=== PATIENT | female | born 1970 | race Caucasian/White ===

== ENCOUNTER 2017-11-23 18:18 | Emergency (ER) | payer OTHER, SELFPAY ==
[2017-11-23 18:19] VITALS: BP 161/96; PULSE 81; RESP 16; TEMP 36.2; O2SAT 98; BMI 32.3
--- NOTE | 2017-11-23 18:46 | EKG12_ITS ---
Test Reason : DIZZINESS Blood Pressure : / mmHG Vent. Rate : 077 BPM Atrial Rate : 077 BPM P-R Int : 150 ms QRS Dur : 080 ms QT Int : 376 ms P-R-T Axes : 029 014 068 degrees QTc Int : 425 ms Normal sinus rhythm Normal ECG Confirmed by AYLIN PEREZ, ANDER ([id number]), offline editor DANIEL FELDER ([id number]) on 11/25/2017 1:43:28 PM Referred By: KAYLA Confirmed By:ANDER VIERA MD
--- NOTE | 2017-11-23 18:47 | RAD_ITS ---
STUDY: X-RAY CHEST REASON FOR EXAM: Female, 47 years old. Dizziness. TECHNIQUE: PA and lateral views of the chest. COMPARISON: August 18, 2014 FINDINGS: The lungs are clear and expanded. There is no demonstrated pleural abnormality. Normal size heart. Normal mediastinum and [place]. Normal visualized pulmonary arteries. Normal visualized aortic arch and descending thoracic aorta. Normal visualized thoracic spine. Normal visualized ribs, clavicles, and shoulders. There is no demonstrated abnormality of the visualized soft tissue structures of the upper abdomen. RAD/Chest PA and Lateral IMPRESSION: No acute cardiopulmonary process. Electronically Signed: Jaclyn Mckeon MD at 20:44 EDT Tel , Service support ,
[2017-11-23 19:21] VITALS: PULSE 79; RESP 20; O2SAT 96
[2017-11-23] MEDS: 0.9% Normal Saline 1,000 ML 1000 ML IV (19:22)
[2017-11-23 19:41] LABS: Absolute Lymphocyte Count 1.49 X10^3/ul (0.83-4.51); Absolute Neutrophil Count 6.8 X10^3/uL (2.0-7.7); Basophil# 0.04 X10^3/uL; Basophil% 0.4 % (0-1); Eosinophil# 0.36 X10^3/uL; Eosinophils% 3.9 % (0-5); Hematocrit 42.8 % (37-47); Hemoglobin 14.1 g/dl (12.0-15.0); Lymphocyte # 1.49 X10^3/ul (4.0); Lymphocyte % 16.2 % (19-41); Mean Corp Hgb Conc 32.9 g/gl (32-36); Mean Corpuscular Hgb 29.9 pg (27.0-32.0); Mean Corpuscular Volume 90.7 fL (81-99); Mean Platelet Vol. 9.6 fl (6.2-12.0); Monocyte# 0.47 X10^3/uL; Monocyte% 5.1 % (0-10); Neutrophil # 6.81 X10^3/uL (2.7-7.7); Platelet Count 275 K/mm3 (150-450); RBC Distribution Width CV 12.9 % (11.6-14.6); RBC Distribution Width SD 42.6 fl (35.1-43.9); Red Blood Count 4.72 M/mm3 (4.2-5.4); White Blood Count 9.2 K/mm3 (4.4-11.0)
[2017-11-23 19:42] LABS: POSITIVE COUNT NO; POSITIVE DIFFERENTIAL NO; POSITIVE MORPHOLOGY NO
[2017-11-23 19:44] VITALS: BP 126/84; PULSE 77; RESP 17; O2SAT 97
[2017-11-23 19:50] LABS: Anion Gap 6 (5-15); BUN 13 mg/dL (7-18); BUN/Creat Ratio 16.1 RATIO (10-20); Chloride 107 mmol/L (98-107); Creatinine, Serum 0.81 mg/dL (0.55-1.02); EST Glomerular Filtration Rate 81 mL/min (>60); Est Glom Filt Rate - Afr Amer 98 mL/min (>60); Estimated Creatinine Clearance 81.24 ml/min; Glucose 101 mg/dL (74-106); Potassium 3.7 mmol/L (3.5-5.1); Sodium Level 142 mmol/L (136-145)
[2017-11-23 20:51] VITALS: BP 133/90; BP 135/89; BP 142/106; PULSE 70; PULSE 74; PULSE 80
--- NOTE | 2017-11-23 21:20 | ED.VISSUMM ---
- ER Visit Summary Date of Service: 11/23/17 Chief Complaint: Dizziness History of Present Illness: The patient is a 47 F presenting for evaluation secondary dizziness. Patient states that earlier today she drank some liquid that was extremely hot. States that she felt a burning sensation go all the way down from her throat into her chest into her abdomen. Patient states she was doing okay since then, but she was driving home from a track meet and felt lightheaded and almost sudden felt as if she was going to pass out. Patient states that she was still having some discomfort from drinking the hot liquid. She endorses some diaphoresis associated with this. Patient states that she does have a history of vasovagal syncope in the past. Patient states that she also recently finished bronchitis and a course of azithromycin. Patient does endorse that she had recent travel, but she flew to and from [place] was in seated for longer than 2 hours at a time. She denies any shortness of breath. Denies any fevers. She denies any history of DVT or PE. She denies any personal or family history of cardiac arrhythmias. Physical Examination: Vital signs are within normal limits, patient is afebrile. General: Patient is well-nourished well-developed and in no acute distress. Head: Normocephalic, atraumatic Eyes: Pupils equal round and reactive bilaterally, extra occular motion intact bialterally ENT: Moist mucous membranes Neck: Supple, no lymphadenopathy, no JVD, no meningismus CVS: Heart regular rate and rhythm, no murmurs, rubs or gallops, radial pulses 2+ bilaterally Resp: Respirations nondistressed, lung sounds clear bilaterally Abdomen: Soft, nontender, nondistended, no palpable masses, normal bowel sounds Back: Nontender Extremities: Nontender, atraumatic, active full range of motion, no peripheral edema Skin: warm, no rashes, no petechia Neuro: Alert and oriented x 4, CN 2-12 intact, no lateralizing neurological defecits Psyc: Normal affect Test Results: EKG shows sinus rate [address] segments, normal T waves, normal intervals. No evidence of acute changes from prior EKG. Chest x-ray per radiology shows no acute pathology. CBC chemistry and troponin found to be unremarkable. Emergency Department Course and Treatment: Patient presented with feelings of presyncope. Patient was evaluated using lab work including troponin, EKG, chest x-ray that were negative. Orthostatic vital signs are negative. Patient was given a GI cocktail and actually had improvement of her symptoms. Patient at this point is [place] syncope negative I do not believe that she requires admission, her symptoms potentially could be secondary to drinking the scalding hot liquid and a mild amount of esophageal pain causing a vagal reaction. At this point I believe that she is safe for discharge. Patient will follow up with her primary care physician. Disposition: Discharge Impression: 1. Presyncope This note was generated with [employer] dictation software. It may contain incorrect words, spelling, and punctuation that were not noted in review of the chart prior to signing ED Disposition - Plan for ED Patient: Disposition: Home or Assisted Living Chief Complaint: Dizziness Diagnosis: Pre-syncope Instructions: ED Near Syncope Unkn Referrals: [facility] Doctor,Out of [Primary Care Provider] - 1 Week
[2017-11-23 21:35] VITALS: BP 122/73; PULSE 76; RESP 15; O2SAT 96
[2017-11-23 21:36] VITALS: BP 122/73; PULSE 76; RESP 15; O2SAT 96
== END 2017-11-23 21:37 | disposition home or self-care (01) ==
PROVIDERS: Emergency Provider Emergency Medicine; Family Provider Family Medicine
DX: R55 Syncope and collapse (principal); F32.9 Major depressive disorder, single episode, unspecified; Z79.899 Other long term (current) drug therapy
CPT/HCPCS: 71046; 80048; 84484; 85025; 93005; 96360; 99285; J7030

== ENCOUNTER 2018-03-25 02:41 | Emergency (ER) | payer OTHER, SELFPAY ==
[2018-03-25 02:42] VITALS: BP 155/99; PULSE 97; RESP 19; TEMP 36.4; O2SAT 98; BMI 38.5
--- NOTE | 2018-03-25 03:12 | RAD_ITS ---
STUDY: X-RAY CHEST REASON FOR EXAM: Female, 47 years old. C/O DIZZINESS, TINGLING TECHNIQUE: Frontal and lateral views of the chest. COMPARISON: None. FINDINGS: The lungs are clear and expanded. There is no demonstrated pleural abnormality. Normal size heart. Normal mediastinum and [place]. Normal visualized pulmonary arteries. Normal visualized aortic arch and descending thoracic aorta. Normal visualized thoracic spine. Normal visualized ribs, clavicles, and shoulders. There is no demonstrated abnormality of the visualized soft tissue structures of the upper abdomen. RAD/Chest PA and Lateral IMPRESSION: Normal x-ray examination of the chest. Electronically Signed: Sivan Tovar MD at 4:19 EDT Tel , Service support ,
--- NOTE | 2018-03-25 03:12 | EKG12_ITS ---
Test Reason : SYNCOPE Blood Pressure : / mmHG Vent. Rate : 079 BPM Atrial Rate : 079 BPM P-R Int : 134 ms QRS Dur : 084 ms QT Int : 396 ms P-R-T Axes : 005 021 032 degrees QTc Int : 454 ms Normal sinus rhythm Poor R wave progression Confirmed by AALIYAH PEREZ, ABDULLAHI ([id number]), material expeditor DANIEL FELDER ([id number]) on 03/27/2018 9:55:03 AM Referred By: KYLE Confirmed By:ABDULLAHI FISCHER MD
--- NOTE | 2018-03-25 03:13 | ED.VISSUMM ---
- ER Visit Summary Date of Service: 03/25/18 Chief Complaint: Near syncope History of Present Illness: The patient is a 47 F patient awakened at 2 AM in bed felt like 'going to pass out. States became nauseated, tingling all over when she awakened. No chest pain or palpitations. Reported diagnosed history of cardiogenic syncope, has seen Dr. Man cardiology in the past who recently retired. Workup including stress test, echocardiogram, tilt test, Holter monitors. No current medications. Does admit to increased stress earlier, is an argument with significant others children's mother. No urinary symptoms. Chronic cough. Denies alcohol, tobacco, or illicit drug use. He still feels mild chest tightness. Her nausea has improved. History of uterine ablation. Physical Examination: General: Alert and oriented ?3, no acute distress HEENT: Normocephalic, atraumatic. Moist mucosa membranes Neck: supple, nontender. Cardiovascular: Regular rate and rhythm, no murmurs Respiratory: Normal breath sounds, symmetric, no distress Abdomen: Soft, nontender, nondistended Extremities: Nontender, no edema, pulses intact ?4 Neuro: no focal neurological deficits. Test Results: Hemoglobin 13.9. Potassium 3.9. Creatinine 0.94. Troponin negative for chest x-ray negative. EKG sinus rate of 79, no ST changes. T-wave flat in leads III. QTc 454. Emergency Department Course and Treatment: Patient nontoxic, workup for near syncope likely vasovagal. EKG normal. Labs are stable. Chest x-ray negative. Initially declined any medications. She given a liter fluids, Zofran was added, improvement of symptoms. Discussed likely vasovagal with her history. No syncopal episodes. Prescription of Zofran to use as needed follow with PCP, return if any worsening symptoms. Treatment Plan: [] Disposition: Discharge Impression: Vasovagal near syncope This note was generated with [employer] dictation software. It may contain incorrect words, spelling, and punctuation that were not noted in review of the chart prior to signing ED Disposition - Plan for ED Patient: Disposition: Home or Assisted Living Chief Complaint: General Illness Diagnosis: Vasovagal near syncope Instructions: ED Near Syncope Vasovagal Prescriptions: Ondansetron [Zofran Odt] 4 mg PO Q8H PRN PRN #10 tablet PRN Reason: Nausea Referrals: [facility] Doctor,Out of [NON-STAFF] - 2 Days
[2018-03-25] MEDS: 0.9% Normal Saline 1,000 ML 1000 ML IV (03:27)
[2018-03-25 03:32] LABS: Absolute Lymphocyte Count 1.91 X10^3/ul (0.83-4.51); Absolute Neutrophil Count 6.2 X10^3/uL (2.0-7.7); Basophil# 0.04 X10^3/uL; Basophil% 0.4 % (0-1); Eosinophil# 0.35 X10^3/uL; Eosinophils% 3.9 % (0-5); Hematocrit 42.6 % (37-47); Hemoglobin 13.9 g/dl (12.0-15.0); Lymphocyte # 1.91 X10^3/ul (4.0); Lymphocyte % 21.2 % (19-41); Mean Corp Hgb Conc 32.6 g/gl (32-36); Mean Corpuscular Hgb 29.6 pg (27.0-32.0); Mean Corpuscular Volume 90.6 fL (81-99); Mean Platelet Vol. 9.7 fl (6.2-12.0); Monocyte# 0.54 X10^3/uL; Neutrophil # 6.18 X10^3/uL (2.7-7.7); Neutrophil % 68.4 % (47-70); Platelet Count 238 K/mm3 (150-450); RBC Distribution Width CV 13.2 % (11.6-14.6); RBC Distribution Width SD 43.5 fl (35.1-43.9)
[2018-03-25 03:35] LABS: POSITIVE COUNT NO; POSITIVE DIFFERENTIAL NO; POSITIVE MORPHOLOGY NO
[2018-03-25 03:47] LABS: Anion Gap 8 (5-15); BUN 12 mg/dL (7-18); BUN/Creat Ratio 12.8 RATIO (10-20); Calcium,Total 9.6 mg/dL (8.5-10.1); Chloride 107 mmol/L (98-107); Creatinine, Serum 0.94 mg/dL (0.55-1.02); EST Glomerular Filtration Rate 68 mL/min (>60); Est Glom Filt Rate - Afr Amer 83 mL/min (>60); Estimated Creatinine Clearance 70.01 ml/min; Glucose 112 mg/dL (74-106); Potassium 3.9 mmol/L (3.5-5.1); Sodium Level 144 mmol/L (136-145)
[2018-03-25] MEDS: Ondansetron 4 MG/2 ML Vial IV (04:53)
[2018-03-25 05:34] VITALS: BP 132/85; PULSE 79; RESP 18; O2SAT 94
== END 2018-03-25 05:35 | disposition home or self-care (01) ==
PROVIDERS: Emergency Provider Emergency Medicine; Family Provider Family Medicine; PCP Family Medicine
DX: R55 Syncope and collapse (principal); Z79.899 Other long term (current) drug therapy
CPT/HCPCS: 71046; 80048; 84484; 85025; 93005; 96361; 96374; 99284; J7030; A4216; J2405

== ENCOUNTER 2018-03-25 19:19 | Emergency (ER) | payer OTHER, SELFPAY ==
[2018-03-25 19:20] VITALS: BP 166/101; PULSE 79; RESP 21; TEMP 36.6; O2SAT 96; BMI 39.0
--- NOTE | 2018-03-25 19:28 | RAD_ITS ---
STUDY: X-RAY CHEST REASON FOR EXAM: Female, 47 years old. Chest pain. TECHNIQUE: Single AP portable view of the chest. COMPARISON: March 25, 2018 (0331 hours) FINDINGS: Telemetry wires overlie the chest. There is a slightly decreased inspiratory effort when compared to prior study. There is no new infiltrate or mass. There is no demonstrated pleural abnormality. Normal size heart. Normal mediastinum and [place]. Normal visualized pulmonary arteries. Normal visualized aortic arch and descending thoracic aorta. No visualized osseous changes. There is no demonstrated abnormality of the visualized soft tissue structures of the upper abdomen. RAD/Chest 1 View (Portable) IMPRESSION: Mildly decreased inspiratory effort without interval change. Electronically Signed: Trenton Segura DO at 19:44 EDT Tel [phone], Service support ,
--- NOTE | 2018-03-25 19:28 | EKG12_ITS ---
Test Reason : CP Blood Pressure : / mmHG Vent. Rate : 080 BPM Atrial Rate : 080 BPM P-R Int : 132 ms QRS Dur : 084 ms QT Int : 396 ms P-R-T Axes : 001 012 035 degrees QTc Int : 456 ms Normal sinus rhythm Nonspecific ST abnormality Abnormal ECG Confirmed by AALIYAH PEREZ, ABDULLAHI ([id number]), electronic news gathering editor DANIEL FELDER ([id number]) on 03/27/2018 11:50:57 AM Referred By: CATRACHO Confirmed By:ABDULLAHI FISCHER MD
[2018-03-25 19:41] LABS: Absolute Lymphocyte Count 2.27 X10^3/ul (0.83-4.51); Absolute Neutrophil Count 4.9 X10^3/uL (2.0-7.7); Basophil# 0.04 X10^3/uL; Basophil% 0.5 % (0-1); Eosinophil# 0.49 X10^3/uL; Hematocrit 42.7 % (37-47); Hemoglobin 13.8 g/dl (12.0-15.0); Lymphocyte # 2.27 X10^3/ul (4.0); Lymphocyte % 27.6 % (19-41); Mean Corp Hgb Conc 32.3 g/gl (32-36); Mean Corpuscular Hgb 29.6 pg (27.0-32.0); Mean Corpuscular Volume 91.6 fL (81-99); Mean Platelet Vol. 9.9 fl (6.2-12.0); Monocyte# 0.57 X10^3/uL; Monocyte% 6.9 % (0-10); Neutrophil # 4.85 X10^3/uL (2.7-7.7); Neutrophil % 58.9 % (47-70); Platelet Count 242 K/mm3 (150-450); RBC Distribution Width CV 13.4 % (11.6-14.6); RBC Distribution Width SD 44.3 fl (35.1-43.9); Red Blood Count 4.66 M/mm3 (4.2-5.4); White Blood Count 8.2 K/mm3 (4.4-11.0)
[2018-03-25 19:51] LABS: POSITIVE COUNT NO; POSITIVE DIFFERENTIAL NO; POSITIVE MORPHOLOGY NO
[2018-03-25] MEDS: Aspirin 81 MG TAB.CHEW 324 MG PO (19:51)
[2018-03-25 20:05] LABS: Anion Gap 5 (5-15); BUN 12 mg/dL (7-18); BUN/Creat Ratio 11.7 RATIO (10-20); Calcium,Total 9.4 mg/dL (8.5-10.1); Chloride 107 mmol/L (98-107); Creatinine, Serum 1.03 mg/dL (0.55-1.02); EST Glomerular Filtration Rate 61 mL/min (>60); Est Glom Filt Rate - Afr Amer 74 mL/min (>60); Estimated Creatinine Clearance 63.89 ml/min; Glucose 105 mg/dL (74-106); Potassium 3.6 mmol/L (3.5-5.1); Sodium Level 143 mmol/L (136-145)
[2018-03-25 22:12] VITALS: BP 118/80; PULSE 74; RESP 14; O2SAT 98
--- NOTE | 2018-03-25 23:09 | ED.VISSUMM ---
- ER Visit Summary Date of Service: 03/25/18 Chief Complaint: Chest discomfort History of Present Illness: The patient is a 47 F past medical history of syncope and OCD. States she was seen and treated here earlier today had a negative workup and was discharged to home. States she has a numbness sensation in her left upper chest. She really does not cause pain. She denies any shortness of breath. She denies any diaphoresis or nausea. She has had no recent exertional dyspnea or exertional chest pain. She has no cardiac history. She does have chronic diarrhea. She denies any history of prior DVT or PE. She has had no recent surgery or mobilization. No calf pain or swelling. No hemoptysis. Physical Examination: Well-appearing middle-age female. Vital signs are stable afebrile. Pulse ox 96% on room air no hypoxia. HEENT exam unremarkable. Neck nontender. Lungs clear to auscultation bilaterally. Heart regular rhythm no murmur. Abdomen soft nontender. Normal bowel sounds no peritoneal signs. She is moving all 4 extremities. Calves are nontender without edema or cords. Neurologically she is awake and alert with no focal motor or sensory deficits. Back exam normal. Skin exam normal. Test Results: Chest x-ray normal cardiac silhouette and mediastinum. Read by the radiologist reviewed by me. EKG sinus rhythm rate 80 no acute signs of NV or ischemia. CBC normal. Chemistries normal. Troponin normal. Emergency Department Course and Treatment: Patient treated with p.o. aspirin. On repeat exam at 2259 she is doing well. Clinically and historically this does not sound like underlying cardiac disease. She has no significant risk factors. Her workup is negative and she had a previously negative workup earlier today. I am comfortable with her being discharged to home. Treatment Plan: Follow-up with her primary care physician. Disposition: Discharge Impression: Atypical chest discomfort of uncertain etiology This note was generated with [employer] dictation software. It may contain incorrect words, spelling, and punctuation that were not noted in review of the chart prior to signing ED Disposition - Plan for ED Patient: Chief Complaint: Chest Pain Referrals: Bren Carvajal PA-C [Primary Care Provider] -
--- NOTE | 2018-03-25 23:12 | ED.DCSUM_ITS ---
- ER Visit Summary Date of Service: 03/25/18 Chief Complaint: Chest discomfort History of Present Illness: The patient is a 47 F past medical history of syncope and OCD. States she was seen and treated here earlier today had a negative workup and was discharged to home. States she has a numbness sensation in her left upper chest. She really does not cause pain. She denies any shortness of breath. She denies any diaphoresis or nausea. She has had no recent exertional dyspnea or exertional chest pain. She has no cardiac history. She does have chronic diarrhea. She denies any history of prior DVT or PE. She has had no recent surgery or mobilization. No calf pain or swelling. No hemoptysis. Physical Examination: Well-appearing middle-age female. Vital signs are stable afebrile. Pulse ox 96% on room air no hypoxia. HEENT exam unremarkable. Neck nontender. Lungs clear to auscultation bilaterally. Heart regular rhythm no murmur. Abdomen soft nontender. Normal bowel sounds no peritoneal signs. She is moving all 4 extremities. Calves are nontender without edema or cords. Neurologically she is awake and alert with no focal motor or sensory deficits. Back exam normal. Skin exam normal. Test Results: Chest x-ray normal cardiac silhouette and mediastinum. Read by the radiologist reviewed by me. EKG sinus rhythm rate 80 no acute signs of [place] or ischemia. CBC normal. Chemistries normal. Troponin normal. Emergency Department Course and Treatment: Patient treated with p.o. aspirin. On repeat exam at 2259 she is doing well. Clinically and historically this does not sound like underlying cardiac disease. She has no significant risk factors. Her workup is negative and she had a previously negative workup earlier today. I am comfortable with her being discharged to home. Treatment Plan: Follow-up with her primary care physician. Disposition: Discharge Impression: Atypical chest discomfort of uncertain etiology This note was generated with [employer] dictation software. It may contain incorrect words, spelling, and punctuation that were not noted in review of the chart prior to signing ED Disposition - Plan for ED Patient: Chief Complaint: Chest Pain Referrals: Bren Carvajal PA-C [Primary Care Provider] -
--- NOTE | 2018-03-25 23:12 | ED.DEP ---
ED Disposition - Plan for ED Patient: Disposition: Home or Assisted Living Chief Complaint: Chest Pain Instructions: ED Chest Pain Atypical Unkn Cause Referrals: Bren Carvajal PA-C [Primary Care Provider] - 3-5 Days if not improving Additional Instructions: All your labs and x-ray were negative this evening. Follow-up your primary care physician.
[2018-03-25 23:21] VITALS: BP 156/108; PULSE 83; RESP 16; O2SAT 98
[2018-03-25] MEDS: LORazepam 1 MG Tablet PO (23:32)
== END 2018-03-25 23:34 | disposition home or self-care (01) ==
PROVIDERS: Emergency Provider Emergency Medicine; Family Provider Family Medicine; PCP Family Medicine
DX: R07.89 Other chest pain (principal); F42.9 Obsessive-compulsive disorder, unspecified; Z79.899 Other long term (current) drug therapy
CPT/HCPCS: 71045; 80048; 84484; 85025; 93005; 99285

== ENCOUNTER 2018-07-16 08:18 | Day surgery (SDC) | payer OTHER, SELFPAY ==
--- NOTE | 2018-07-16 | GASB_PTH ---
PATIENT: CORTEZ MOISE LOC: EN U#:[id number] AGE/SX: 47/F ROOM: RE07/16/[address]: Dr. Joo Gomez MD : 1970 BED: DIS: 07/16/2018 SPEC #: [id number] RECD: 07/16/18 14:53 STATUS: DARIEL RERaymon #: [id number] FREDI: 07/16/18 00:[address]: Joo Gomez DEPT: SURGICAL PATHOLOGY RECD BY: Jose Manuel Mcmillan ENTERED: 07/16/18 14:53 SP TYPE: Gastric Bx OTHR DR: Bren Carvajal PA-C Tissues: Gastric mucous membrane Procedures: Surgery Specimen Level IV HEADER OPER[place] [place] DIAGNOSIS: Dysphagia, cough TISSUE SUBMITTED: Antral biopsy for H. pylori and pathology MICROSCOPIC DIAGNOSIS Antral biopsy: Mild gastritis. See microscopic description and comment. SJ:natan 11/23/18 COMMENT The results of immunohistochemistry for Helicobacter pylori will be reported separately ([id number]). MICROSCOPIC DESCRIPTION Slides are reviewed. The specimen shows fragments of gastric mucosa with chronic inflammatory cell infiltrates in the lamina propria consisting of lymphocytes and plasma cells, consistent with mild chronic gastritis. GROSS DESCRIPTION Received in fixative is one container labeled with the patient's name and designated antral biopsy. The specimen consists of one irregular fragment of light treadwell soft tissue that measures 0.4 x 0.3 x 0.1 cm. The specimen is totally submitted in one cassette. / SJ:rg 07/16/18 TC:3 CPT: 60070
[2018-07-16 08:38] VITALS: BP 146/99; PULSE 82; RESP 16; TEMP 37.7; O2SAT 97; BMI 37.7
[2018-07-16 08:38] LABS: Internal QC Validated? YES +Cl - CLEAR BKGD; Pregnancy, Urine Negative Negative
[2018-07-16 09:21] VITALS: BP 108/63; BP 146/99; PULSE 75; RESP 14; TEMP 36.9; O2SAT 97
--- NOTE | 2018-07-16 09:23 | OP.ENDO_ITS ---
Patient Name: Isabel Miller Procedure Date: 07/16/2018 9:05 AM Date of : 1970 Age: 47 Procedure: Upper GI endoscopy Indications: Dysphagia, Gastro-esophageal reflux disease Providers: Joo Gomez MD Referring MD: Joo Gomez MD Medicines: See the Anesthesia note for documentation of the administered medications Patient Profile: This is a 47 year old female. Refer to note in patient chart for documentation of history and physical. Complications: No immediate complications. Procedure: Pre-Anesthesia Assessment: - Prior to the procedure, a History and Physical was performed, and patient medications and allergies were reviewed. The patient's tolerance of previous anesthesia was also reviewed. The risks and benefits of the procedure and the sedation options and risks were discussed with the patient. All questions were answered, and informed consent was obtained. Prior Anticoagulants: The patient has taken no previous anticoagulant or antiplatelet agents. ASA Grade Assessment: III - A patient with severe systemic disease. After reviewing the risks and benefits, the patient was deemed in satisfactory condition to undergo the procedure. After obtaining informed consent, the endoscope was passed under direct vision. Throughout the procedure, the patient's blood pressure, pulse, and oxygen saturations were monitored continuously. The gastroscope was introduced through the mouth, and advanced to the second part of duodenum. The upper GI endoscopy was accomplished without difficulty. The patient tolerated the procedure well. Scope In: 9:12:56 AM Scope Out: 9:16:27 AM Total Procedure Duration Time 0 hours 3 minutes 31 seconds Findings: The Z-line was regular and was found 35 cm from the incisors. The examined esophagus was normal. No biopsies or other specimens were collected for this exam. Localized mild inflammation characterized by erythema and linear erosions was found in the gastric antrum. Biopsies were taken with a cold forceps for Helicobacter pylori testing. The examined duodenum was normal. No biopsies or other specimens were collected for this exam. A small hiatal hernia was present. No biopsies or other specimens were collected for this exam. Impression: - Z-line regular, 35 cm from the incisors. - Normal esophagus. No specimens collected. - Gastritis. Biopsied. - Normal examined duodenum. No specimens collected. Recommendation: - Discharge patient to home. - Resume previous diet. - Continue present medications. - Await pathology results. - Repeat upper endoscopy at appointment to be scheduled for surveillance based on pathology results. - Return to my office in 1 week. - Perform routine esophageal manometry at appointment to be scheduled. - Perform ambulatory pH monitoring at appointment to be scheduled. Procedure Code(s): --- Professional --- 95929, Esophagogastroduodenoscopy, flexible, transoral; with biopsy, single or multiple Diagnosis Code(s): --- Professional --- K29.70, Gastritis, unspecified, without bleeding R13.10, Dysphagia, unspecified K21.9, Gastro-esophageal reflux disease without esophagitis CPT copyright 2017 [employer]. All rights reserved. The codes documented in this report are preliminary and upon career technical education teacher review may be revised to meet current compliance requirements. MD Joo Rodriguez MD 07/16/2018 9:22:29 AM This report has been signed electronically. Number of Addenda: 0 Note Initiated On: 07/16/2018 9:05 AM
[2018-07-16 09:25] VITALS: BP 146/99; BP 90/57; PULSE 78; RESP 14; O2SAT 97
[2018-07-16 09:30] VITALS: BP 146/99; BP 95/66; PULSE 72; RESP 14; O2SAT 95
--- NOTE | 2018-07-16 09:30 | IMM_PTH ---
PATIENT: CORTEZ MOISE LOC: EN U#:[id number] AGE/SX: 47/F ROOM: RE07/16/[address]: Dr. Joo Gomez MD : 1970 BED: DIS: 07/16/2018 SPEC #: [id number] RECD: 07/18/18 09:06 STATUS: DARIEL RERaymon #: [id number] FREDI: 07/16/18 09:[address]: Joo Gomez DEPT: IMMUNOHISTOCHEMISTRY RECD BY: Corrie Michael ENTERED: 07/18/18 09:09 SP TYPE: IMMUNO OTHR DR: Bren Carvajal PA-C Tissues: Stomach, NOS Procedures: H Pylori (initial) PHYSICIAN & INSTITUTION [place] [id number] SPECIMEN INFORMATION: Tissue Source: Antral biopsy Clinical Info: Dysphagia Specimen Number: [id number] CPT code: 72908 METHODOLOGY: Deparaffinized sections of prefer/formalin-fixed tissue or PAP/DQ stained slides are incubated with monoclonal/polyclonal antibodies/oligonucleotide probes. Localization is made via biotin free immunoperoxidase method. Appropriate controls are performed and reacted as expected. Results on target cell population are indicated in the following table: RESULTS: ANTIBODY / CLONE RESULT H Pylori (polyclonal) negative These tests were developed and their performance characteristics determined by [facility]. They may not have been cleared or approved by the U.S. Food and Drug Administration. The FDA has determined that such clearance or approval is not necessary. INTERPRETATION: Antral biopsy: Negative for Helicobacter pylori organisms. SJ:natan 07/18/18
[2018-07-16 09:35] VITALS: BP 118/77; BP 146/99; PULSE 70; RESP 14; TEMP 37.6; O2SAT 96
[2018-07-16 09:56] VITALS: BP 146/99
== END 2018-07-16 10:08 | disposition home or self-care (01) ==
LOC: EN 08:19 → AC 08:21
PROVIDERS: Anesthesiology; Family Provider Family Medicine; PCP Family Medicine; Referring Provider Surgery; Visit Provider Surgery
PROC: 0DJ08ZZ Inspection of Upper Intestinal Tract, Via Natural or Artificial Opening Endoscopic (ICD-10-PCS; CPT 43235; principal; 2018-07-16 09:25)
DX: K29.70 Gastritis, unspecified, without bleeding (principal); K21.9 Gastro-esophageal reflux disease without esophagitis; K44.9 Diaphragmatic hernia without obstruction or gangrene; R13.10 Dysphagia, unspecified; F41.9 Anxiety disorder, unspecified; F42.9 Obsessive-compulsive disorder, unspecified; Z79.899 Other long term (current) drug therapy
CPT/HCPCS: 43239; 81025; 88305; 88342; J7120

== ENCOUNTER 2018-08-07 08:27 | Day surgery (SDC) | payer OTHER, SELFPAY ==
[2018-08-07 09:17] VITALS: BP 140/99; PULSE 80; RESP 16; TEMP 36.7; O2SAT 99
== END 2018-08-07 09:17 | disposition home or self-care (01) ==
LOC: EN 08:28
PROVIDERS: Family Provider Family Medicine; PCP Family Medicine; Referring Provider Surgery; Visit Provider Surgery
PROC: F00ZJWZ Instrumental Swallowing and Oral Function Assessment using Swallowing Equipment (ICD-10-PCS; CPT 43235; principal; 2018-08-07 08:25)
DX: K21.9 Gastro-esophageal reflux disease without esophagitis (principal)
CPT/HCPCS: 78258

== ENCOUNTER 2018-08-13 05:55 | Day surgery (SDC) | payer OTHER, SELFPAY ==
[2018-08-13 06:33] VITALS: BP 122/92; PULSE 73; RESP 16; TEMP 37.1; O2SAT 98; BMI 37.3
[2018-08-13 07:20] VITALS: BP 117/80; BP 122/92; PULSE 80; RESP 16; TEMP 36.8; O2SAT 93
[2018-08-13 07:25] VITALS: BP 118/80; BP 122/92; PULSE 82; RESP 16; O2SAT 96
[2018-08-13 07:30] VITALS: BP 115/77; BP 122/92; PULSE 72; RESP 16; O2SAT 98
[2018-08-13 07:35] VITALS: BP 115/87; BP 122/92; PULSE 70; RESP 16; TEMP 36.9; O2SAT 97
--- NOTE | 2018-08-13 07:51 | OP.ENDO_ITS ---
Patient Name: Isabel Miller Procedure Date: 08/13/2018 6:33 AM Date of : 1970 Age: 47 Procedure: Upper GI endoscopy Indications: Gastro-esophageal reflux disease Providers: Joo Gomez MD Referring MD: Joo Gomez MD Medicines: See the Anesthesia note for documentation of the administered medications Patient Profile: This is a 47 year old female. Refer to note in patient chart for documentation of history and physical. Complications: No immediate complications. Procedure: Pre-Anesthesia Assessment: - Prior to the procedure, a History and Physical was performed, and patient medications and allergies were reviewed. The patient's tolerance of previous anesthesia was also reviewed. The risks and benefits of the procedure and the sedation options and risks were discussed with the patient. All questions were answered, and informed consent was obtained. Prior Anticoagulants: The patient has taken no previous anticoagulant or antiplatelet agents. ASA Grade Assessment: II - A patient with mild systemic disease. After reviewing the risks and benefits, the patient was deemed in satisfactory condition to undergo the procedure. After obtaining informed consent, the endoscope was passed under direct vision. Throughout the procedure, the patient's blood pressure, pulse, and oxygen saturations were monitored continuously. The gastroscope was introduced through the mouth, and advanced to the second part of duodenum. The upper GI endoscopy was accomplished without difficulty. The patient tolerated the procedure well. Scope In: 7:11:28 AM Scope Out: 7:16:05 AM Total Procedure Duration Time 0 hours 4 minutes 37 seconds Findings: The Z-line was regular and was found 35 cm from the incisors. The entire examined stomach was normal. No biopsies or other specimens were collected for this exam. The examined duodenum was normal. No biopsies or other specimens were collected for this exam. Impression: - Z-line regular, 35 cm from the incisors. - Normal stomach. No specimens collected. - Normal examined duodenum. No specimens collected. - The MOELLER pH capsule was positioned 25 cm from the incisors, which was 5 cm proximal to the GE junction. Recommendation: - Discharge patient to home. - Resume previous diet. - Repeat upper endoscopy at appointment to be scheduled for surveillance. - Return to my office in 1 week. - Hold present medications until after 48 hours. Procedure Code(s): --- Professional --- 40627, Esophagogastroduodenoscopy, flexible, transoral; diagnostic, including collection of specimen(s) by brushing or washing, when performed (separate procedure) Diagnosis Code(s): --- Professional --- K21.9, Gastro-esophageal reflux disease without esophagitis CPT copyright 2017 [employer]. All rights reserved. The codes documented in this report are preliminary and upon labor relations specialist review may be revised to meet current compliance requirements. MD Joo Rodriguez MD 08/13/2018 7:51:04 AM This report has been signed electronically. Number of Addenda: 0 Note Initiated On: 08/13/2018 6:33 AM
[2018-08-13 07:59] VITALS: BP 122/92
--- OUTSIDE RECORDS SUMMARY | 2018-11-14 07:33 | XMS RPT_ITS ---
:1970 Author Organization [place] Support Name Relationship Address Phone ZAHIDA MOISE Unavailable [address] + [place] [id number] [facility] Unavailable [address] + [place] [address] COURTNEY SEGOVIA Unavailable . + [place] [id number] ANNA MOISEDERICK Unavailable [address] + [place] [address] [facility] Unavailable [address] + [place] [address] COURTNEY SEGOVIA Unavailable Unavailable + [place] [address] SUMA, ZAHIDA Unavailable [address] + [place] [address] [facility] Unavailable [address] + [place] [address] COURTNEY SEGOVIA Unavailable . + [place] [address] TAMYCHRISTY, ZAHIDA Unavailable [address] + [place] [address] [facility] Unavailable [address] + [place] [address] COURTNEY SEGOVIA Unavailable Unavailable + [place] [address] SUMA, ZAHIDA Unavailable [address] + [place] [address] [facility] Unavailable [address] + [place] [address] COURTNEY SEGOVIA Unavailable /// + myla NAPIER [address] GEIB, ZAHIDA Unavailable [address] + [place] [address] [facility] Unavailable [address] + [place] [address] COURTNEY SEGOVIA Unavailable . + myla NAPIER [address] GEIB, ZAHIDA Unavailable [address] + [place] [address] [facility] Unavailable [address] + [place] [address] COURTNEY SEGOVIA Unavailable Unavailable + myla NAPIER [address] GEIB, ZAHIDA Unavailable [address] + [place] [address] [facility] Unavailable [address] + [place] [address] GEIB, ZAHIDA Unavailable [address] + [place] [address] GEIB, ZAHIDA Unavailable [address] + [place] [address] GEIB, ZAHIDA Unavailable [address] + myla N[place] [address] [facility] Unavailable [address] + [place] [address] GEIB, ZAHIDA Unavailable [address] + [place] [address] [facility] Unavailable [address] + [place] [address] GEIB, ZAHIDA Unavailable [address] + [place] [address] [facility] Unavailable [address] + [place] [address] Care Team Providers Name Role Phone DAYDAY TATE, MS. JUD Jamil Attending Unavailable NORFOLK, CRISPIN Primary Care Unavailable Calabretta, Raffi Attending Unavailable Badger, Joo Referring Unavailable Badger, Joo Attending Unavailable Badger, Joo Attending Unavailable Carmen, Crispin PA-C Referring Unavailable Jerel Fermin Attending Unavailable Carmen, Crispin PA-C Primary Care Unavailable Carmen, Crispin PA-C Primary Care Unavailable Kyle Jose Attending Unavailable Carmen, Crispin PA-C Primary Care Unavailable Guille Martinez Attending Unavailable Badger, Joo Attending Unavailable Carmen, Crispin PA-C Referring Unavailable Patricia, Joo Attending Unavailable Badger, Joo Referring Unavailable Carmen, Crispin PA-C Primary Care Unavailable Badger, Joo Attending Unavailable Carmen, Crispin PA-C Referring Unavailable Calabretta, Raffi Attending Unavailable Calabretta, Raffi Referring Unavailable Carmen, Crispin PA-C Primary Care Unavailable Badger, Joo Attending Unavailable Carmen, Crispin PA-C Primary Care Unavailable Carmen, Crispin PA-C Referring Unavailable PROBLEMS PROBLEMS DATE TYPE CONDITION / CODE ATTENDING STATUS SOURCE 08/14/2018 Unknown K21.9 - Joo Gomez Active [place] Gastro-esophageal [facility] reflux disease [facility] without Repository esophagitis / K21.9(ICD-10) PROCEDURES PROCEDURES No Procedure Records FoundRESULTS RESULTS SURGERY VISIT REPORT Observed: 08/18/2018 Status: F Source: [place] 3:16 PM [facility] REPOSITORY [facility] [address] [place] [address] [address] [place] [address] OFFICE VISIT Date of Service: 08/15/18 MR#: [id number] Acct: [id number] Name: ISABEL MOISE Rep #: [id number] : 1970 Provider: Joo Gomez MD Age/Sex: 47/F Location: [facility] Status: Signed Intake Intake Visit Reasons: F/U FROM EGD AND KEVIN BENAVIDEZO Chief Complaint: f/u MANOMETRY Digital Manager Required: No Is patient in pain?: No Allergies sulfamethoxazole [From Bactrim] Allergy (Verified 07/25/18 08:26) Hives trimethoprim [From Bactrim] Allergy (Verified 07/25/18 08:26) Hives Medications Lactobacillus acidophilus 1.5 mg (250 million cell) capsule 100 mmu cells PO DAILY 07/07/18 [History Confirmed 08/12/18] fluvoxamine ER 100 mg capsule,extended release 24 hr 50 mg PO DAILY cap 07/07/18 [History Confirmed 08/12/18] Ranitidine HCl [Zantac 75] 75 mg PO DAILY PRN 07/14/18 [History Confirmed 08/12/18] omeprazole 40 mg capsule,delayed release 40 mg PO BID cap 07/25/18 [History Confirmed 08/12/18] Is last menstrual period known: No Post menopausal: No Patient : No Subjective Details: Patient is status post both an EGD with 48-hour pH probe as well as esophageal manometry. Patient's pH monitoring showed a DeMeester score of 52.7. Patient also underwent esophageal manometry which showed 10 swallows analyzed no retained bolus LES pressure was normal with swallows and no abnormality was seen in the UDS. Her Z line was located at 35 cm from her incisors a biopsy of the stomach showed some mild gastritis and was H. pylori negative. Objective Details: Her abdomen is soft and not tender Assessment AND Plan Problems 1. Gastroesophageal reflux disease K21.9 Plan I believe this candidate would make a good surgical candidate for a laparoscopic Miky fundoplication. She is currently on her proton pump inhibitor is increased it and we are going to see if she makes any progress. I will probably see her back in 1 month's time and make a determination then if we are going to perform surgery or not. Coding Level of Care Code Off vis,est,level 2 Diagnoses Gastroesophageal reflux disease K21.9 08/18/18 9656 <Electronically signed by Joo Gomez MD> Date Joo Gomez MD Cosigner Signature: Date (if applicable) CC: RAVI Carvajal OPERATIVE REPORT - Observed: 08/13/2018 Status: F Source: [facility] ENDOSCOPY 7:51 AM [facility] RE[facility]ITORY [facility] Medical Records Department [address] [place] [address] Operative Report - Endoscopy MR#: [id number] Acct: [id number] Name: ISABEL MOISE Rep #: [id number] : 1970 47 From: Joo Gomez MD PCP: Crispin Carvajal PA-C Status: REG [facility] Patient Name: Isabel Moise Procedure Date: 08/13/2018 6:33 AM Date of : 1970 Age: 47 Procedure: Upper GI endoscopy Indications: Gastro-esophageal reflux disease Providers: Joo Gomez MD Referring MD: Joo Gomez MD Medicines: See the Anesthesia note for documentation of the administered medications Patient Profile: This is a 47 year old female. Refer to note in patient chart for documentation of history and physical. Complications: No immediate complications. Procedure: Pre-Anesthesia Assessment: - Prior to the procedure, a History and Physical was performed, and patient medications and allergies were reviewed. The patient's tolerance of previous anesthesia was also reviewed. The risks and benefits of the procedure and the sedation options and risks were discussed with the patient. All questions were answered, and informed consent was obtained. Prior Anticoagulants: The patient has taken no previous anticoagulant or antiplatelet agents. ASA Grade Assessment: II - A patient with mild systemic disease. After reviewing the risks and benefits, the patient was deemed in satisfactory condition to undergo the procedure. After obtaining informed consent, the endoscope was passed under direct vision. Throughout the procedure, the patient's blood pressure, pulse, and oxygen saturations were monitored continuously. The gastroscope was introduced through the mouth, and advanced to the second part of duodenum. The upper GI endoscopy was accomplished without difficulty. The patient tolerated the procedure well. Scope In: 7:11:28 AM Scope Out: 7:16:05 AM Total Procedure Duration Time 0 hours 4 minutes 37 seconds Findings: The Z-line was regular and was found 35 cm from the incisors. The entire examined stomach was normal. No biopsies or other specimens were collected for this exam. The examined duodenum was normal. No biopsies or other specimens were collected for this exam. Impression: - Z-line regular, 35 cm from the incisors. - Normal stomach. No specimens collected. - Normal examined duodenum. No specimens collected. - The MOELLER pH capsule was positioned 25 cm from the incisors, which was 5 cm proximal to the GE junction. Recommendation: - Discharge patient to home. - Resume previous diet. - Repeat upper endoscopy at appointment to be scheduled for surveillance. - Return to my office in 1 week. - Hold present medications until after 48 hours. Procedure Code(s): --- Professional --- 52384, Esophagogastroduodenoscopy, flexible, transoral; diagnostic, including collection of specimen(s) by brushing or washing, when performed (separate procedure) Diagnosis Code(s): --- Professional --- K21.9, Gastro-esophageal reflux disease without esophagitis CPT copyright 2017 [employer]. All rights reserved. The codes documented in this report are preliminary and upon projection printer review may be revised to meet current compliance requirements. MD Joo Rodriguez MD 08/13/2018 7:51:04 AM This report has been signed electronically. Number of Addenda: 0 Note Initiated On: 08/13/2018 6:33 AM 08/13/18 0751 Date Joo Gomez MD Cosigner Signature: Date (if indicated) CC: RAVI Carvajal; Joo Gomez MD Date Dictated: 08/13/18 0633 Date Transcribed: Frame Cleaner: AYDE Signed SURGERY VISIT REPORT Observed: 07/25/2018 Status: F Source: [place] 9:12 AM [facility] [address] [place] [address]. [address] [place], [place] [address] OFFICE VISIT Date of Service: 07/25/18 MR#: [id number] Acct: [id number] Name: ISABEL MOISE Rep #: [id number] : 1970 Provider: Joo Gomez MD Age/Sex: 47/F Location: [facility] Status: Signed Intake Intake Visit Reasons: Post Op EGD 07/16 Digital Manager Required: No Is patient in pain?: No Allergies sulfamethoxazole [From Bactrim] Allergy (Verified 07/25/18 08:26) Hives trimethoprim [From Bactrim] Allergy (Verified 07/25/18 08:26) Hives Medications Lactobacillus acidophilus 1.5 mg (250 million cell) capsule 100 mmu cells PO DAILY 07/07/18 [History Confirmed 07/25/18] fluvoxamine ER 100 mg capsule,extended release 24 hr 100 mg PO DAILY cap 07/07/18 [History Confirmed 07/25/18] Ranitidine HCl [Zantac 75] 75 mg PO DAILY PRN 07/14/18 [History Confirmed 07/25/18] omeprazole 40 mg capsule,delayed release 40 mg PO BID cap 07/25/18 [History Confirmed 07/25/18] Is last menstrual period known: No Post menopausal: Yes Patient : No Subjective Details: Patient is status post a esophagogastroduodenoscopy at [facility] on 07/16/2018 she was noted to have a Z line at about 35 cm from her incisors there was some mild inflammation with linear erosions in the gastric antrum. Biopsy for H. pylori was negative. She is scheduled to undergo esophageal manometry on 07 August. She however is stating that her reflux is significantly worse progressing despite being on 40 mg of omeprazole a day. I reviewed all the pictures with her showed her that her esophageal mucosa looked normal and there was no signs of erosions. Objective Details: Her lungs are clear to auscultation. Her heart is regular rate and rhythm. Neck is supple no JVD no lymphadenopathy no carotid bruits. Abdomen is soft. Assessment AND Plan Problems 1. Gastroesophageal reflux disease K21.9 Plan I am going to double her proton pump inhibitor to 40 g of omeprazole 2 times a day. I have also encouraged her to take Pepto-Bismol as needed. She is already trying to avoid things such as peppermint. We are going to get her scheduled as quickly as we can to get both the esophageal manometry as well as the 48-hour pH probe completed in a timely fashion so that we can evaluate to decide whether or not she has an esophageal motility problem or if this is truly a reflux problem. Coding Level of Care Code Off vis,est,level 2 Diagnoses Gastroesophageal reflux disease K21.9 07/25/18 0912 <Electronically signed by Joo Gomez MD> Date Joo Gomez MD Cosigner Signature: Date (if applicable) CC: RAVI Carvajal IMMUNOHISTOCHEMISTRY Observed: 07/16/2018 Status: F Source: CROSBY 9:30 [facility] REPOSITORY Patient: ISABEL MOISE : 1970 (47/F) Acct Num: [id number] Phys: Joo Gomez MD Unit Num: [id number] Loc: EN Specimen: [id number] Received: 07/18/18905 Spec Type: IMMUNO TISSUES 1 TISSUES: Stomach, NOS SPECIMEN INFORMATION: Tissue Source: Antral biopsy Clinical Info: Dysphagia Specimen Number: [id number] CPT code: 79631 METHODOLOGY: Deparaffinized sections of prefer/formalin-fixed tissue or PAP/DQ stained slides are incubated with monoclonal/polyclonal antibodies/oligonucleotide probes. Localization is made via biotin free immunoperoxidase method. Appropriate controls are performed and reacted as expected. Results on target cell population are indicated in the following table: RESULTS: ANTIBODY / CLONE RESULT H Pylori (polyclonal) negative These tests were developed and their performance characteristics determined by [facility]. They may not have been cleared or approved by the U.S. Food and Drug Administration. The FDA has determined that such clearance or approval is not necessary. INTERPRETATION: Antral biopsy: Negative for Helicobacter pylori organisms. SJ:natan 07/18/18 PHYSICIAN AND INSTITUTION [address] [address] Signed Ravi Coreas 07/18/18 <signature on file> Performed By: #### PIMM #### [facility] [address] [place], [address] OPERATIVE REPORT - Observed: 07/16/2018 Status: F Source: [place] ENDOSCOPY 9:23 AM [facility] REPOSITORY [facility] Medical Records Department [address] [place] [address] Operative Report - Endoscopy MR#: [id number] Acct: [id number] Name: ISABEL MOISE Rep #: [id number] : 1970 47 From: Joo Gomez MD PCP: Crispin Carvajal PA-C Status: REG [facility] Patient Name: Isabel Moise Procedure Date: 07/16/2018 9:05 AM Date of : 1970 Age: 47 Procedure: Upper GI endoscopy Indications: Dysphagia, Gastro-esophageal reflux disease Providers: Joo Gomez MD Referring MD: Joo Gomez MD Medicines: See the Anesthesia note for documentation of the administered medications Patient Profile: This is a 47 year old female. Refer to note in patient chart for documentation of history and physical. Complications: No immediate complications. Procedure: Pre-Anesthesia Assessment: - Prior to the procedure, a History and Physical was performed, and patient medications and allergies were reviewed. The patient's tolerance of previous anesthesia was also reviewed. The risks and benefits of the procedure and the sedation options and risks were discussed with the patient. All questions were answered, and informed consent was obtained. Prior Anticoagulants: The patient has taken no previous anticoagulant or antiplatelet agents. ASA Grade Assessment: III - A patient with severe systemic disease. After reviewing the risks and benefits, the patient was deemed in satisfactory condition to undergo the procedure. After obtaining informed consent, the endoscope was passed under direct vision. Throughout the procedure, the patient's blood pressure, pulse, and oxygen saturations were monitored continuously. The gastroscope was introduced through the mouth, and advanced to the second part of duodenum. The upper GI endoscopy was accomplished without difficulty. The patient tolerated the procedure well. Scope In: 9:12:56 AM Scope Out: 9:16:27 AM Total Procedure Duration Time 0 hours 3 minutes 31 seconds Findings: The Z-line was regular and was found 35 cm from the incisors. The examined esophagus was normal. No biopsies or other specimens were collected for this exam. Localized mild inflammation characterized by erythema and linear erosions was found in the gastric antrum. Biopsies were taken with a cold forceps for Helicobacter pylori testing. The examined duodenum was normal. No biopsies or other specimens were collected for this exam. A small hiatal hernia was present. No biopsies or other specimens were collected for this exam. Impression: - Z-line regular, 35 cm from the incisors. - Normal esophagus. No specimens collected. - Gastritis. Biopsied. - Normal examined duodenum. No specimens collected. Recommendation: - Discharge patient to home. - Resume previous diet. - Continue present medications. - Await pathology results. - Repeat upper endoscopy at appointment to be scheduled for surveillance based on pathology results. - Return to my office in 1 week. - Perform routine esophageal manometry at appointment to be scheduled. - Perform ambulatory pH monitoring at appointment to be scheduled. Procedure Code(s): --- Professional --- 09724, Esophagogastroduodenoscopy, flexible, transoral; with biopsy, single or multiple Diagnosis Code(s): --- Professional --- K29.70, Gastritis, unspecified, without bleeding R13.10, Dysphagia, unspecified K21.9, Gastro-esophageal reflux disease without esophagitis CPT copyright 2017 [employer]. All rights reserved. The codes documented in this report are preliminary and upon projection printer review may be revised to meet current compliance requirements. MD Joo Rodriguez MD 07/16/2018 9:22:29 AM This report has been signed electronically. Number of Addenda: 0 Note Initiated On: 07/16/2018 9:05 AM 07/16/18921 Date Joo Gomez MD Cosigner Signature: Date (if indicated) CC: RAVI Carvajal; Joo Gomez MD Date Dictated: 07/16/18904 Date Transcribed: Frame Cleaner: AYDE Signed ,URINE Collected: 07/16/2018 Status: F Source: RANJITH 8:29 AM [facility] REPOSITORY TYPE CODE TESTS RESULT OUT OF REFERENCE UNITS RANGE LAB L400.8000 Negative Normal HCGUQUAL Negative Result Comment: Very dilute urine specimens, as indicated by a low specific gravity, may not contain access representative levels of hCG. If is still suspected, a first morning urine specimen should be collected 48 hours later and tested. Performed By: #### [id number] #### [facility] [address] [place], [address] GASTRIC BIOPSY Observed: 07/16/2018 Status: F Source: RANJITH 12:00 AM [facility] REPOSITORY Patient: ISABEL MOISE : 1970 (47/F) Acct Num: [id number] Phys: Patricia PEREZ,Joo Unit Num: [id number] Loc: EN Specimen: [id number] Received: 07/16/18 1453 Spec Type: Gastric Bx TISSUES 1 TISSUES: Gastric mucous membrane COMMENT The results of immunohistochemistry for Helicobacter pylori will be reported separately ([id number]). GROSS DESCRIPTION Received in fixative is one container labeled with the patient's name and designated antral biopsy. The specimen consists of one irregular fragment of light treadwell soft tissue that measures 0.4 x 0.3 x 0.1 cm. The specimen is totally submitted in one cassette. / SINGH:natan 07/16/18 TC:3 CPT: 35099 HEADER OPERATION: EGD ([facility]) PRE-OP DIAGNOSIS: Dysphagia, cough TISSUE SUBMITTED: Antral biopsy for H. pylori and pathology MICROSCOPIC DESCRIPTION Slides are reviewed. The specimen shows fragments of gastric mucosa with chronic inflammatory cell infiltrates in the lamina propria consisting of lymphocytes and plasma cells, consistent with mild chronic gastritis. MICROSCOPIC DIAGNOSIS Antral biopsy: Mild gastritis. See microscopic description and comment. SINGH:natan 07/18/18 Signed Ravi Coreas 07/18/18 <signature on file> Performed By: #### PGASB #### [facility] [address] [place], [address] SURGERY VISIT REPORT Observed: 07/10/2018 Status: F Source: RANJITH 11:54 AM [facility] REPOSITORY [facility] [address] [place] [address] OFFICE VISIT Date of Service: 07/07/18 MR#: [id number] Acct: [id number] Name: ISABEL MOISE Rep #: [id number] : 1970 Provider: Joo Gomez MD Age/Sex: 47/F Location: [facility] Status: Signed Intake Vital Signs07/07/18 Height 5 ft 6 in 07/07/18 Weight: 239 lb Intake Visit Reasons: Gastroesophageal reflux disease (GERD) Digital Manager Required: No Is patient in pain?: No Allergies sulfamethoxazole [From Bactrim] Allergy (Verified 07/07/18 13:14) Hives trimethoprim [From Bactrim] Allergy (Verified 07/07/18 13:14) Hives Medications Lactobacillus acidophilus 1.5 mg (250 million cell) capsule 100 mmu cells PO DAILY 07/07/18 [History Confirmed 07/07/18] alprazolam 0.25 mg tablet 0.25 mg PO BID-TID PRN 07/07/18 [History Confirmed 07/07/18] fluvoxamine ER 100 mg capsule,extended release 24 hr 100 mg PO DAILY cap 07/07/18 [History Confirmed 07/07/18] omeprazole 40 mg capsule,delayed release 40 mg PO DAILY 07/07/18 [History Confirmed 07/07/18] [facility] Medical History Chest pain (Acute) Elevated lipase (Acute) Anxiety attack (Acute) Cough (Acute) GERD (gastroesophageal reflux disease) (Acute) Left arm numbness (Acute) OCD (obsessive compulsive disorder) (Acute) Palpitations (Acute) Paresthesia (Acute) Syncope (Acute) Surgical History History of (Acute) History of laparoscopic cholecystectomy (Acute) History of tonsillectomy (Acute) history uterine ablation (Acute) Family History Grandfather Heart disease Social History Smoking Status: Never smoker alcohol intake: never substance use type: does not use HPI HPI HPI: ISABEL MOISE, is a 47 F who presents to the office today for evaluation for GERD. Over the last several years the patient has been complaining of some dysphasia and coughing after eating. The symptoms have gotten progressively worse and aggravated over the last 2 months. She tastes acid in her mouth. She regurgitates food at times. And she has water brash symptoms in the morning when she wakes up. She has been on a proton pump inhibitor for the last 3 weeks and has not noticed any changes. Patient has had her gallbladder removed laparoscopically by Dr. Zheng in the past ROS General General: Yes fatigue; no weight change, appetite, colon cancer, breast cancer or weakness HEENT HEENT: Yes difficulty swallowing; no eye injury, eye surgery, swollen glands or hoarseness Endo Endocrine: No thyroid disease, diabetes mellitus, thyroid cancer, Hair loss, heat intolerance or cold intolerance Skin Skin: No rash or changing moles Breast Breast: No left breast lump, right breast lump, nipple discharge, breast pain, abnormal mammogram, abnormal US or breast enlargement Musc Musculoskeletal: No back problems, arthritis, rheumatoid arthritis, gout or joint pain Cardio Cardiovascular: No murmur, pacemaker, heart disease, atrial fibrillation, high blood pressure, heart attack, heart stent, palpitations, shortness of breat with exertion or chest pain Psych Psychiatric: No depression, anxiety or hearing voices Resp Respiratory: No shortness of breath, No sleep apnea, Yes cough, No COPD, No asthma, No emphysema, No wheezing Gastro Gastrointestinal: Yes abdominal pain, No nausea or vomiting, No diarrhea, No constipation, No blood in stool, Yes acid reflux, No hemorrhoids, Yes ulcers, No gallbladder problem, No black,tarry stools Rory Hematologic: No blood thinners, No blood disorders, No bleeding, No anemia, No blood clots Neuro Neurologic: No system reviewed and no additional complaints, except as docu, No as per HPI, No abnormal walking, No abnormal hearing, No abnormal movements, No abnormal speech, No behavioral changes, No burning sensations, No confusion, No seizure-like activity, No unsteadiness, No dizziness, No localized weakness, No frequent falls, No headache(s), No lack of coordination, No loss of vision, No memory loss, No numbness, No other visual disturbances, No radiating pain, No restless legs, No sensory deficit, No fainting, No tingling, No tremor(s), No weakness, No other Exam Const General: well developed, no acute distress, well hydrated Orientation: oriented to person, oriented to place, oriented to time [facility] Head: normocephalic, atraumatic Ears: external ears normal Mouth: moist mucous membranes Eyes Sclera: sclerae normal Pupils: normal by confrontation Neck Neck: no lymphadenopathy noted Neck mass: No Thyroid: symmetrical, thyroid normal Chest Chest palpation AND inspection: normal inspection of the chest Breast Palpation: No nipple discharge Resp Effort AND Inspection: normal respiratory effort Auscultation: clear to auscultation bilaterally Percussion: percussion normal Cardio Rate: regular rate Rhythm: regular rhythm Heart Sounds: no murmurs GI Palpation: soft, no masses, no hepatosplenomegaly, nontender Rectal Exam: other Other: Rectal exam deferred. Extrem General: no clubbing, cyanosis or edema, normal to inspection Assessment AND Plan 1. Gastroesophageal reflux disease, esophagitis presence not specified K21.9 Plan I have discussed the above with the patient. I have offered the patient esophagogastroduodenoscopy for evaluation. I have explained the risks/benefits of the procedure and described the procedure. I have discussed the risks with the patient, including but not limited to: infection, bleeding, perforation of the GI tract requiring emergency surgery, inability to complete the procedure, injury to any internal organs, complications of anesthesia, etc. - the patient understands and agrees to proceed. I have answered all the patient's questions to the patient's satisfaction and the patient has no further questions. The patient has been given instructions for the colon cleansing preparation. Orders Orders: Coding Level of Care Code Off vis,new,level 3 Diagnoses Gastroesophageal reflux disease, esophagitis presence not specified K21.9 Esophagitis presence: esophagitis presence not specified 07/10/18 1154 <Electronically signed by Joo Gomez MD> Date Joo Gomez MD Cosigner Signature: Date (if applicable) CC: RAVI Luciomee Carvajal NM MYOCARDIAL SPECT Observed: 04/16/2018 Status: F Source: [place] STRESS/REST 9:00 AM [facility] REPOSITORY ORIGINAL NM MYOCARDIAL SPECT STRESS/REST CLINICAL STATEMENT: CHEST PAIN, NEAR SYNCOPE, PALPITATIONS TECHNIQUE: Adenosine dose:60 mg Radiopharmaceutical (stress): Tc-99m Sestamibi Dose:19.4 mCi Radiopharmaceutical (rest): Tc-99m Sestamibi Dose:6.7 mCi SPECT acquisition and processing Reconstruction and reorientation of SPECT images into short axis, vertical and horizontal long axis planes Quantitative LVEF assessment COMPARISON:None REPORT:Image quality is good. Both stress and rest images demonstrate normal tracer uptake. On nonattenuation corrected images, there was decreased activity at the apex compatible with breast attenuatio n artifact. No evidence for stress-induced ventricular dilatation. Rotating planar images demonstrate no significant patient motion artifact. Gated images demonstrate normal LEFT ventricular size and systolic function. End-diastolic volume is 75 mL. LEFT ventricular ejection fraction is 67%. There is normal wall motion and wall thickening. IMPRESSION: 1. No evidence for stress-induced myocardial ischemia. 2. No evidence for myocardial infarction. There is evidence for breast attenuation artifact. 3. LEFT ventricle is normal in size with normal systolic function and ejection fraction of 67%. 4. No previous study is available for comparison. Interpreted By: Oscar Rodriguez MD Preliminary Report By: Oscar Rodriguez MD Electronically Signed By: Oscar Rodriguez MD Dictated Date: 04/16/2018 11:06:58 AM Prelim Date: 04/16/2018 11:06:58 AM Sign Date: 04/16/2018 11:37:25 AM 12 LEAD ELECTROCARDIOGRAM Observed: 03/27/2018 Status: F Source: RANJITH 11:51 AM [facility] Cardiovascular Services [address] [place] [address] 12 Lead EKG 03/25/18 1919 MR#: [id number] Acct: [id number] Name: ISABEL MOISE Rep #: [id number] : 1970 47 From: Mauri Fischer MD Attending Dr: Status: DEP ER Ordering Dr: Guille Martinez MD Date: 03/25/18 Location: ED Sex: F C Admitted: Test Reason : CP Blood Pressure : / mmHG Vent. Rate : 080 BPM Atrial Rate : 080 BPM P-R Int : 132 ms QRS Dur : 084 ms QT Int : 396 ms P-R-T Axes : 001 012 035 degrees QTc Int : 456 ms Normal sinus rhythm Nonspecific ST abnormality Abnormal ECG Confirmed by MAURI FISCHER MD ([id number]), web content editor DANIEL FELDER ([id number]) on 03/27/2018 11:50:57 AM Referred By: CATRACHO Confirmed By:MAURI FISCHER MD 03/27/18 115 Date Mauri Fischer MD CC: RAVI Carvajal; Guille Martinez MD Signed 12 LEAD ELECTROCARDIOGRAM Observed: 03/27/2018 Status: F Source: CROSBY 9:55 AM [facility] Cardiovascular Services [address] [place] [id number] 12 Lead EKG 03/25/18 0321 MR#: [id number] Acct: [id number] Name: ISABEL MOISE Rep #: [id number] : 1970 47 From: Mauri Fischer MD Attending Dr: Status: DEP ER Ordering Dr: Jose Serrano DO Date: 03/25/18 Location: ED Sex: F C Admitted: Test Reason : SYNCOPE Blood Pressure : / mmHG Vent. Rate : 079 BPM Atrial Rate : 079 BPM P-R Int : 134 ms QRS Dur : 084 ms QT Int : 396 ms P-R-T Axes : 005 021 032 degrees QTc Int : 454 ms Normal sinus rhythm Poor R wave progression Confirmed by MAURI FISCHER MD ([id number]), web content editor DANIEL FELDER ([id number]) on 03/27/2018 9:55:03 AM Referred By: KYLE Confirmed By:MAURI FISCHER MD 03/27/18 0943 Date Mauri Fischer MD CC: RAVI Carvajal; Jose Serrano Signed EMERGENCY DEPARTMENT Observed: 03/26/2018 Status: F Source: CROSBY SUMMARY 12:41 AM [facility] Medical Records Department [address] [place] [address] Emergency Department Summary 03/25/18 2309 MR#: [id number] Acct: [id number] Name: ISABEL MOISE Rep #: [id number] : 1970 47 From: Guille Martinez MD PCP: Crispin Carvajal PA-C Status: DEP ER - ER Visit Summary Date of Service: 03/25/18 Chief Complaint: Chest discomfort History of Present Illness: The patient is a 47 F past medical history of syncope and OCD. States she was seen and treated here earlier today had a negative workup and was discharged to home. States she has a numbness sensation in her left upper chest. She really does not cause pain. She denies any shortness of breath. She denies any diaphoresis or nausea. She has had no recent exertional dyspnea or exertional chest pain. She has no cardiac history. She does have chronic diarrhea. She denies any history of prior DVT or PE. She has had no recent surgery or mobilization. No calf pain or swelling. No hemoptysis. Physical Examination: Well-appearing middle-age female. Vital signs are stable afebrile. Pulse ox 96% on room air no hypoxia. HEENT exam unremarkable. Neck nontender. Lungs clear to auscultation bilaterally. Heart regular rhythm no murmur. Abdomen soft nontender. Normal bowel sounds no peritoneal signs. She is moving all 4 extremities. Calves are nontender without edema or cords. Neurologically she is awake and alert with no focal motor or sensory deficits. Back exam normal. Skin exam normal. Test Results: Chest x-ray normal cardiac silhouette and mediastinum. Read by the radiologist reviewed by me. EKG sinus rhythm rate 80 no acute signs of HI or ischemia. CBC normal. Chemistries normal. Troponin normal. Emergency Department Course and Treatment: Patient treated with p.o. aspirin. On repeat exam at 2259 she is doing well. Clinically and historically this does not sound like underlying cardiac disease. She has no significant risk factors. Her workup is negative and she had a previously negative workup earlier today. I am comfortable with her being discharged to home. Treatment Plan: Follow-up with her primary care physician. Disposition: Discharge Impression: Atypical chest discomfort of uncertain etiology This note was generated with YouAppi dictation software. It may contain incorrect words, spelling, and punctuation that were not noted in review of the chart prior to signing ED Disposition - Plan for ED Patient: Chief Complaint: Chest Pain Referrals: Crispin Carvajal PA-C [Primary Care Provider] - What to do if you have Problems For any increased pain, shortness of breath, bleeding, nausea or vomiting, chest pain, or any unexpected problems, contact your Primary Care Provider. Call [facility] ([phone]) or report to the closest Emergency Room. Call 911 if necessary. 03/26/18 0041 <Electronically signed by Guille Martinez MD> Date Guille Martinez MD Cosigner Signature (If Indicated): Date CC: RAVI Carvajal DISCHARGE INSTRUCTION Observed: 03/26/2018 Status: F Source: RANJITH 12:41 AM [facility] Medical Records Department [address] [place] [address] Discharge Instruction 03/25/18 2312 MR#: [id number] Acct: [id number] Name: ISABEL MOISE Rep #: [id number] : 1970 47 From: Guille Martinez MD PCP: Crispin Carvajal PA-C Status: [facility] ER ED Disposition - Plan for ED Patient: Disposition: Home or Assisted Living Chief Complaint: Chest Pain Instructions: ED Chest Pain Atypical Unkn Cause Referrals: Carmen,Crispin, PA-C [Primary Care Provider] - 3-5 Days if not improving Additional Instructions: All your labs and x-ray were negative this evening. Follow- up your primary care physician. What to do if you have Problems For any increased pain, shortness of breath, bleeding, nausea or vomiting, chest pain, or any unexpected problems, contact your Primary Care Provider. Call [facility] ([phone]) or report to the closest Emergency Room. Call 911 if necessary. 03/26/18 0041 <Electronically signed by Guille Martinez MD> Date Guille Martinez MD Cosigner Signature (If Indicated): Date CC: RAVI Carvajal CBC W/DIFF, AUTOMATED Collected: 03/25/2018 Status: F Source: RANJITH 7:29 PM [facility] TYPE CODE TESTS RESULT OUT OF RANGE REFERENCE UNITS LAB L100.1000 4.4-11.0 K/mm3 Normal WBC 8.2 LAB L100.1200 4.2-5.4 M/mm3 Normal RBC 4.66 LAB L100.1300 12.0-15.0 g/dl Normal HGB 13.8 LAB L100.1400 37-47 % Normal HCT 42.7 LAB L100.1500 81-99 fL Normal MCV 91.6 LAB L100.1600 27.0-32.0 pg Normal MCH 29.6 LAB L100.1700 32-36 g/gl Normal MCHC 32.3 LAB L100.1810 11.6-14.6 % Normal RDW CV 13.4 LAB L100.1820 35.1-43.9 fl High RDW SD 44.3 LAB L100.1900 150-450 K/mm3 Normal PLT 242 LAB L100.2000 6.2-12.0 fl Normal MPV 9.9 LAB L100.2100 47-70 % Normal NEUT% 58.9 LAB L100.2200 19-41 % Normal LY% 27.6 LAB L100.2300 0-10 % Normal MONO% 6.9 LAB L100.2400 0-5 % High EO% 6.0 LAB L100.2500 0-1 % Normal BASO% 0.5 LAB L100.2550 0.0-0.9 % Normal IM GRAN % 0.100 Result Comment: IG% - Immature Granulocytes (promyelocytes, myelocytes and metamyelocytes) > 1% indicates that a LEFT SHIFT is Present. LAB L100.2620 2.0-7.7 X10 3/uL Normal Absolute Neut 4.9 LAB L100.2720 0.83-4.51 X10 3/ul Normal Absolute Lymph 2.27 Performed By: #### L100.0100 #### [facility] [address] [place], [address] BASIC METABOLIC Collected: 03/25/2018 Status: F Source: CROSBY PROFILE (BMP) 7:29 PM [facility] TYPE CODE TESTS RESULT OUT OF RANGE REFERENCE UNITS LAB L501.0100 74-106 mg/dL Normal GLU 105 Result Comment: Fasting Glucose result from 100 to 125 mg/dL suggests IMPAIRED HOMEOSTASIS per A.D.A. criteria. Please note revised GLUCOSE reference range effective 2017. LAB L501.1000 7-18 mg/dL Normal BUN 12 LAB L501.1100 0.55-1.02 mg/dL High CREAT,SERUM 1.03 Result Comment: The validity of the calculated GFR AND GFRAA in patients over 70 years has not been determined. Clinical correlation is essential. LAB L501.1110 >60 mL/min Normal EST GFR 61 Result Comment: Non- GFR Calc LAB L501.1115 >60 mL/min Normal EST GFR - AA 74 Result Comment: GFR Calc LAB L501.1255 ml/min Normal Estimated CRCL 63.89 LAB L501.1300 10-20 RATIO Normal BUN/CRE 11.7 LAB L501.2200 8.5-10 mg/dL Normal .1 CA 9.4 LAB L501.5300 136-14 mmol/L Normal 5 NA 143 LAB L501.5600 3.5-5. mmol/L Normal 1 K 3.6 LAB L501.5900 98-107 mmol/L Normal CL 107 LAB L501.6100 21.0-3 mmol/L Normal 2.0 CO2 31.0 LAB L501.6200 5-15 Normal GAP 5 Performed By: #### L500.2500, L501.4010 #### [facility] [address] [place], [address] TROPONIN-I Collected: 03/25/2018 Status: F Source: CROSBY 7:29 PM [facility] TYPE CODE TESTS RESULT OUT OF RANGE REFERENCE UNITS LAB L501.4010 <0.045 ng/mL Normal < 0.015 TROPONIN-I Result Comment: TROPONIN-I EXPECTED VALUES <0.045 Negative 0.045 - 0.590 Consistent with Cardiac Damage > OR = 0.600 Critical Value Not every elevated troponin is indicative of HI. These values should be used with clinical judgement in examining the patient's clinical picture for diagnosis. To establish a diagnosis of HI versus myocardial injury, there must be a demonstrated rise and/or fall in the troponin values, in addition to ischemic symptoms, EKG changes, new regional wall motion abnormality, and/or angiographical evidence. PLEASE NOTE: REFERENCE RANGES EDITED 18 Performed By: #### L500.2500, L501.4010 #### [facility] [address] [place], [address] CHEST 1 VIEW Observed: 03/25/2018 Status: F Source: CROSBY (PORTABLE) 7:28 PM [facility] Imaging Services [address] [place] [address] Chest 1 View (Portable) MR#: [id number] Acct: [id number] Name: ISABEL MOISE Rep #: [id number] : 1970 F 47 From: Trenton Segura DO PCP: Crispin Carvajal PA-C Status: REG ER Study: Chest 1 View (Portable) Date of Exam: 03/25/18 Exam# [id number] Ordering Dr: uGille Martinez MD STUDY: X-RAY CHEST REASON FOR EXAM: Female, 47 years old. Chest pain. TECHNIQUE: Single AP portable view of the chest. COMPARISON: March 25, 2018 (0331 hours) FINDINGS: Telemetry wires overlie the chest. There is a slightly decreased inspiratory effort when compared to prior study. There is no new infiltrate or mass. There is no demonstrated pleural abnormality. Normal size heart. Normal mediastinum and [place]. Normal visualized pulmonary arteries. Normal visualized aortic arch and descending thoracic aorta. No visualized osseous changes. There is no demonstrated abnormality of the visualized soft tissue structures of the upper abdomen. RAD/Chest 1 View (Portable) IMPRESSION: Mildly decreased inspiratory effort without interval change. Electronically Signed: Trenton Segura DO at 19:44 EDT Tel [phone], Service support , CC: RAVI Carvajal; Guille Martinez MD Frame Cleaner: Signed EMERGENCY DEPARTMENT Observed: 03/25/2018 Status: F Source: CROSBY SUMMARY 5:30 AM [facility] Medical Records Department [address] [place] [address] Emergency Department Summary 03/25/18 0313 MR#: [id number] Acct: [id number] Name: ISABEL MOISE Rep #: [id number] : 1970 47 From: Jose Adam PCP: Crispin Carvajal PA-C Status: REG ER - ER Visit Summary Date of Service: 03/25/18 Chief Complaint: Near syncope History of Present Illness: The patient is a 47 F patient awakened at 2 AM in bed felt like 'going to pass out. States became nauseated, tingling all over when she awakened. No chest pain or palpitations. Reported diagnosed history of cardiogenic syncope, has seen Dr. Man cardiology in the past who recently retired. Workup including stress test, echocardiogram, tilt test, Holter monitors. No current medications. Does admit to increased stress earlier, is an argument with significant others children's mother. No urinary symptoms. Chronic cough. Denies alcohol, tobacco, or illicit drug use. He still feels mild chest tightness. Her nausea has improved. History of uterine ablation. Physical Examination: General: Alert and oriented 3, no acute distress HEENT: Normocephalic, atraumatic. Moist mucosa membranes Neck: supple, nontender. Cardiovascular: Regular rate and rhythm, no murmurs Respiratory: Normal breath sounds, symmetric, no distress Abdomen: Soft, nontender, nondistended Extremities: Nontender, no edema, pulses intact 4 Neuro: no focal neurological deficits. Test Results: Hemoglobin 13.9. Potassium 3.9. Creatinine 0.94. Troponin negative for chest x-ray negative. EKG sinus rate of 79, no ST changes. T-wave flat in leads III. QTc 454. Emergency Department Course and Treatment: Patient nontoxic, workup for near syncope likely vasovagal. EKG normal. Labs are stable. Chest x-ray negative. Initially declined any medications. She given a liter fluids, Zofran was added, improvement of symptoms. Discussed likely vasovagal with her history. No syncopal episodes. Prescription of Zofran to use as needed follow with PCP, return if any worsening symptoms. Treatment Plan: [] Disposition: Discharge Impression: Vasovagal near syncope This note was generated with YouAppi dictation software. It may contain incorrect words, spelling, and punctuation that were not noted in review of the chart prior to signing ED Disposition - Plan for ED Patient: Disposition: Home or Assisted Living Chief Complaint: General Illness Diagnosis: Vasovagal near syncope Instructions: ED Near Syncope Vasovagal Prescriptions: Ondansetron [Zofran Odt] 4 mg PO Q8H PRN PRN #10 tablet PRN Reason: Nausea Referrals: [facility] Doctor,Out of [NON-STAFF] - 2 Days What to do if you have Problems For any increased pain, shortness of breath, bleeding, nausea or vomiting, chest pain, or any unexpected problems, contact your Primary Care Provider. Call [facility] ([phone]) or report to the closest Emergency Room. Call 911 if necessary. 03/25/18 2588 <Electronically signed by Jose Adam> Date Jose Adam Cosigner Signature (If Indicated): Date CC: RAVI Carvajal CBC W/DIFF, AUTOMATED Collected: 03/25/2018 Status: F Source: CROSBY 3:20 AM [facility] TYPE CODE TESTS RESULT OUT OF RANGE REFERENCE UNITS LAB L100.1000 4.4-11.0 K/mm3 Normal WBC 9.0 LAB L100.1200 4.2-5.4 M/mm3 Normal RBC 4.70 LAB L100.1300 12.0-15.0 g/dl Normal HGB 13.9 LAB L100.1400 37-47 % Normal HCT 42.6 LAB L100.1500 81-99 fL Normal MCV 90.6 LAB L100.1600 27.0-32.0 pg Normal MCH 29.6 LAB L100.1700 32-36 g/gl Normal MCHC 32.6 LAB L100.1810 11.6-14.6 % Normal RDW CV 13.2 LAB L100.1820 35.1-43.9 fl Normal RDW SD 43.5 LAB L100.1900 150-450 K/mm3 Normal PLT 238 LAB L100.2000 6.2-12.0 fl Normal MPV 9.7 LAB L100.2100 47-70 % Normal NEUT% 68.4 LAB L100.2200 19-41 % Normal LY% 21.2 LAB L100.2300 0-10 % Normal MONO% 6.0 LAB L100.2400 0-5 % Normal EO% 3.9 LAB L100.2500 0-1 % Normal BASO% 0.4 LAB L100.2550 0.0-0.9 % Normal IM GRAN % 0.100 Result Comment: IG% - Immature Granulocytes (promyelocytes, myelocytes and metamyelocytes) > 1% indicates that a LEFT SHIFT is Present. LAB L100.2620 2.0-7.7 X10 3/uL Normal Absolute Neut 6.2 LAB L100.2720 0.83-4.51 X10 3/ul Normal Absolute Lymph 1.91 Performed By: #### L100.0100 #### [facility] [address] [place], [address] BASIC METABOLIC Collected: 03/25/2018 Status: F Source: RANJITH PROFILE (BMP) 3:20 AM [facility] TYPE CODE TESTS RESULT OUT OF RANGE REFERENCE UNITS LAB L501.0100 74-106 mg/dL High GLU 112 Result Comment: Fasting Glucose result from 100 to 125 mg/dL suggests IMPAIRED HOMEOSTASIS per A.D.A. criteria. Please note revised GLUCOSE reference range effective 2017. LAB L501.1000 7-18 mg/dL Normal BUN 12 LAB L501.1100 0.55-1.02 mg/dL Normal CREAT,SERUM 0.94 Result Comment: The validity of the calculated GFR AND GFRAA in patients over 70 years has not been determined. Clinical correlation is essential. LAB L501.1110 >60 mL/min Normal EST GFR 68 Result Comment: Non- GFR Calc LAB L501.1115 >60 mL/min Normal EST GFR - AA 83 Result Comment: GFR Calc LAB L501.1255 ml/min Normal Estimated CRCL 70.01 LAB L501.1300 10-20 RATIO Normal BUN/CRE 12.8 LAB L501.2200 8.5-10 mg/dL Normal .1 CA 9.6 LAB L501.5300 136-14 mmol/L Normal 5 NA 144 LAB L501.5600 3.5-5. mmol/L Normal 1 K 3.9 LAB L501.5900 98-107 mmol/L Normal CL 107 LAB L501.6100 21.0-3 mmol/L Normal 2.0 CO2 29.0 LAB L501.6200 5-15 Normal GAP 8 Performed By: #### L500.2500, L501.4010 #### [facility] [address] [place], [address] TROPONIN-I Collected: 03/25/2018 Status: F Source: RAJNITH 3:20 AM [facility] TYPE CODE TESTS RESULT OUT OF RANGE REFERENCE UNITS LAB L501.4010 <0.045 ng/mL Normal < 0.015 TROPONIN-I Result Comment: TROPONIN-I EXPECTED VALUES <0.045 Negative 0.045 - 0.590 Consistent with Cardiac Damage > OR = 0.600 Critical Value Not every elevated troponin is indicative of HI. These values should be used with clinical judgement in examining the patient's clinical picture for diagnosis. To establish a diagnosis of HI versus myocardial injury, there must be a demonstrated rise and/or fall in the troponin values, in addition to ischemic symptoms, EKG changes, new regional wall motion abnormality, and/or angiographical evidence. PLEASE NOTE: REFERENCE RANGES EDITED 18 Performed By: #### L500.2500, L501.4010 #### [facility] [address] [place], [address] CHEST PA AND LATERAL Observed: 03/25/2018 Status: F Source: CROSBY 3:13 AM [facility] Imaging Services [address] [place] [address] Chest PA and Lateral MR#: [id number] Acct: [id number] Name: ISABEL MOISE Rep #: [id number] : 1970 F 47 From: Sivan Tovar MD PCP: Crispin Carvajal PA-C Status: REG ER Study: Chest PA and Lateral Date of Exam: 03/25/18 Exam# [id number] Ordering Dr: Jose Serrano DO STUDY: X-RAY CHEST REASON FOR EXAM: Female, 47 years old. C/O DIZZINESS, TINGLING TECHNIQUE: Frontal and lateral views of the chest. COMPARISON: None. FINDINGS: The lungs are clear and expanded. There is no demonstrated pleural abnormality. Normal size heart. Normal mediastinum and [place]. Normal visualized pulmonary arteries. Normal visualized aortic arch and descending thoracic aorta. Normal visualized thoracic spine. Normal visualized ribs, clavicles, and shoulders. There is no demonstrated abnormality of the visualized soft tissue structures of the upper abdomen. RAD/Chest PA and Lateral IMPRESSION: Normal x-ray examination of the chest. Electronically Signed: Sivan Tovar MD at 4:19 EDT Tel , Service support , CC: RAVI Carvajal; Jose Serrano Frame Cleaner: Signed 12 LEAD ELECTROCARDIOGRAM Observed: 11/25/2017 Status: F Source: RANJITH 1:44 PM [facility] Cardiovascular Services [address] [place] [address] 12 Lead EKG 11/23/17 1854 MR#: [id number] Acct: [id number] Name: ISABEL MOISE Rep #: [id number] : 1970 47 From: Abel Carnes MD Attending Dr: Status: DEP ER Ordering Dr: Jerel Fermin MD Date: 11/23/17 Location: ED Sex: F C Admitted: Test Reason : DIZZINESS Blood Pressure : / mmHG Vent. Rate : 077 BPM Atrial Rate : 077 BPM P-R Int : 150 ms QRS Dur : 080 ms QT Int : 376 ms P-R-T Axes : 029 014 068 degrees QTc Int : 425 ms Normal sinus rhythm Normal ECG Confirmed by AYLIN PEREZ, ABEL ([id number]), web content editor DANIEL FELDER ([id number]) on 11/25/2017 1:43:28 PM Referred By: KAYLA Confirmed By:ABEL CARNES MD 11/25/17 1343 Date Abel Carnes MD CC: RAVI Carvajal; Jerel Fermin; OUT OF TOWN DOCTOR Signed EMERGENCY DEPARTMENT Observed: 11/24/2017 Status: F Source: RANJITH SUMMARY 12:37 AM [facility] Medical Records Department [address] [place] [address] Emergency Department Summary 11/23/172119 MR#: [id number] Acct: [id number] Name: ISABEL MOISE Rep #: [id number] : 1970 47 From: Jerel Fermin MD PCP: OUT OF TOWN DOCTOR Status: DEP ER - ER Visit Summary Date of Service: 11/23/17 Chief Complaint: Dizziness History of Present Illness: The patient is a 47 F presenting for evaluation secondary dizziness. Patient states that earlier today she drank some liquid that was extremely hot. States that she felt a burning sensation go all the way down from her throat into her chest into her abdomen. Patient states she was doing okay since then, but she was driving home from a track meet and felt lightheaded and almost sudden felt as if she was going to pass out. Patient states that she was still having some discomfort from drinking the hot liquid. She endorses some diaphoresis associated with this. Patient states that she does have a history of vasovagal syncope in the past. Patient states that she also recently finished bronchitis and a course of azithromycin. Patient does endorse that she had recent travel, but she flew to and from [place] was in seated for longer than 2 hours at a time. She denies any shortness of breath. Denies any fevers. She denies any history of DVT or PE. She denies any personal or family history of cardiac arrhythmias. Physical Examination: Vital signs are within normal limits, patient is afebrile. General: Patient is well-nourished well-developed and in no acute distress. Head: Normocephalic, atraumatic Eyes: Pupils equal round and reactive bilaterally, extra occular motion intact bialterally ENT: Moist mucous membranes Neck: Supple, no lymphadenopathy, no JVD, no meningismus CVS: Heart regular rate and rhythm, no murmurs, rubs or gallops, radial pulses 2+ bilaterally Resp: Respirations nondistressed, lung sounds clear bilaterally Abdomen: Soft, nontender, nondistended, no palpable masses, normal bowel sounds Back: Nontender Extremities: Nontender, atraumatic, active full range of motion, no peripheral edema Skin: warm, no rashes, no petechia Neuro: Alert and oriented x 4, CN 2-12 intact, no lateralizing neurological defecits Psyc: Normal affect Test Results: EKG shows sinus rate [address] segments, normal T waves, normal intervals. No evidence of acute changes from prior EKG. Chest x-ray per radiology shows no acute pathology. CBC chemistry and troponin found to be unremarkable. Emergency Department Course and Treatment: Patient presented with feelings of presyncope. Patient was evaluated using lab work including troponin, EKG, chest x-ray that were negative. Orthostatic vital signs are negative. Patient was given a GI cocktail and actually had improvement of her symptoms. Patient at this point is [place] syncope negative I do not believe that she requires admission, her symptoms potentially could be secondary to drinking the scalding hot liquid and a mild amount of esophageal pain causing a vagal reaction. At this point I believe that she is safe for discharge. Patient will follow up with her primary care physician. Disposition: Discharge Impression: 1. Presyncope This note was generated with YouAppi dictation software. It may contain incorrect words, spelling, and punctuation that were not noted in review of the chart prior to signing ED Disposition - Plan for ED Patient: Disposition: Home or Assisted Living Chief Complaint: Dizziness Diagnosis: Pre-syncope Instructions: ED Near Syncope Unkn Referrals: [facility] Doctor,Out of [Primary Care Provider] - 1 Week What to do if you have Problems For any increased pain, shortness of breath, bleeding, nausea or vomiting, chest pain, or any unexpected problems, contact your Primary Care Provider. Call [facility] ([phone]) or report to the closest Emergency Room. Call 911 if necessary. 11/24/17 0037 <Electronically signed by Jerel Fermin MD> Date Jerel Fermin MD Cosigner Signature (If Indicated): Date CC: OUT OF [facility] DOCTOR CBC W/DIFF, AUTOMATED Collected: 11/23/2017 Status: F Source: RANJITH 7:20 PM [facility] REPOSITORY TYPE CODE TESTS RESULT OUT OF RANGE REFERENCE UNITS LAB L100.1000 4.4-11.0 K/mm3 Normal WBC 9.2 LAB L100.1200 4.2-5.4 M/mm3 Normal RBC 4.72 LAB L100.1300 12.0-15.0 g/dl Normal HGB 14.1 LAB L100.1400 37-47 % Normal HCT 42.8 LAB L100.1500 81-99 fL Normal MCV 90.7 LAB L100.1600 27.0-32.0 pg Normal MCH 29.9 LAB L100.1700 32-36 g/gl Normal MCHC 32.9 LAB L100.1810 11.6-14.6 % Normal RDW CV 12.9 LAB L100.1820 35.1-43.9 fl Normal RDW SD 42.6 LAB L100.1900 150-450 K/mm3 Normal PLT 275 LAB L100.2000 6.2-12.0 fl Normal MPV 9.6 LAB L100.2100 47-70 % High NEUT% 74.0 LAB L100.2200 19-41 % Low LY% 16.2 LAB L100.2300 0-10 % Normal MONO% 5.1 LAB L100.2400 0-5 % Normal EO% 3.9 LAB L100.2500 0-1 % Normal BASO% 0.4 LAB L100.2550 0.0-0.9 % Normal IM GRAN % 0.400 Result Comment: IG% - Immature Granulocytes (promyelocytes, myelocytes and metamyelocytes) > 1% indicates that a LEFT SHIFT is Present. LAB L100.2620 2.0-7.7 X10 3/uL Normal Absolute Neut 6.8 LAB L100.2720 0.83-4.51 X10 3/ul Normal Absolute Lymph 1.49 Performed By: #### L100.0100 #### [facility] [address] [place], [address] BASIC METABOLIC Collected: 11/23/2017 Status: F Source: CROSBY PROFILE ([facility]) 7:20 PM [facility] REPOSITORY Order Comment: 'TROP' Serial specimen #1, #2, #3, or #4: 1 TYPE CODE TESTS RESULT OUT OF RANGE REFERENCE UNITS LAB L501.0100 74-106 mg/dL Normal GLU 101 Result Comment: Fasting Glucose result from 100 to 125 mg/dL suggests IMPAIRED HOMEOSTASIS per A.D.A. criteria. Please note revised GLUCOSE reference range effective 2017. LAB L501.1000 7-18 mg/dL Normal BUN 13 LAB L501.1100 0.55-1.02 mg/dL Normal CREAT,SERUM 0.81 Result Comment: The validity of the calculated GFR AND GFRAA in patients over 70 years has not been determined. Clinical correlation is essential. LAB L501.1110 >60 mL/min Normal EST GFR 81 Result Comment: Non- GFR Calc LAB L501.1115 >60 mL/min Normal EST GFR - AA 98 Result Comment: GFR Calc LAB L501.1255 ml/min Normal Estimated CRCL 81.24 LAB L501.1300 10-20 RATIO Normal BUN/CRE 16.1 LAB L501.2200 8.5-10 mg/dL Normal .1 CA 9.0 LAB L501.5300 136-14 mmol/L Normal 5 NA 142 LAB L501.5600 3.5-5. mmol/L Normal 1 K 3.7 LAB L501.5900 98-107 mmol/L Normal CL 107 LAB L501.6100 21.0-3 mmol/L Normal 2.0 CO2 29.0 LAB L501.6200 5-15 Normal GAP 6 Performed By: #### L500.2500, L501.4010 #### [facility] [address] [place], [address] TROPONIN-I Collected: 11/23/2017 Status: F Source: CROSBY 7:20 PM [facility] REPOSITORY Order Comment: 'TROP' Serial specimen #1, #2, #3, or #4: 1 TYPE CODE TESTS RESULT OUT OF RANGE REFERENCE UNITS LAB L501.4010 <0.06 ng/mL Normal < 0.02 TROPONIN-I Result Comment: TROPONIN-I EXPECTED VALUES <0.05 NEGATIVE 0.06 - 0.59 AT RISK OF HI > OR = 0.60 SUGGEST HI Performed By: #### L500.2500, L501.4010 #### [facility] [address] [place], [place], [address] CHEST PA AND LATERAL Observed: 11/23/2017 Status: F Source: CROSBY 6:48 PM [facility] REPOSITORY [facility] Imaging Services [address] [place] [address] Chest PA and Lateral MR#: [id number] Acct: [id number] Name: SUMAISABEL M Rep #: [id number] : 1970 F 47 From: Jaclyn Mckeon MD PCP: OUT OF TOWN DOCTOR Status: REG ER Study: Chest PA and Lateral Date of Exam: 11/23/17 Exam# [id number] Ordering Dr: Jerel Fermin MD STUDY: X-RAY CHEST REASON FOR EXAM: Female, 47 years old. Dizziness. TECHNIQUE: PA and lateral views of the chest. COMPARISON: August 18, 2014 FINDINGS: The lungs are clear and expanded. There is no demonstrated pleural abnormality. Normal size heart. Normal mediastinum and [place]. Normal visualized pulmonary arteries. Normal visualized aortic arch and descending thoracic aorta. Normal visualized thoracic spine. Normal visualized ribs, clavicles, and shoulders. There is no demonstrated abnormality of the visualized soft tissue structures of the upper abdomen. RAD/Chest PA and Lateral IMPRESSION: No acute cardiopulmonary process. Electronically Signed: Jaclyn Mckeon MD at 20:44 EDT Tel , Service support , CC: Jerel Fermin; OUT OF TOWN DOCTOR Frame Cleaner: Signed ALLERGIES ALLERGIES DATE TYPE / CODE NAME / CODE REACTION SEVERITY SOURCE 07/25/2018 Drug sulfamethoxa Hives Unknown [facility] Allergy/4160 zole/[id number] Hospital 41087(SNOMED 827(RXNORM) Repository CT) 07/25/2018 Drug trimethoprim Hives Unknown [facility] Allergy/4160 /[id number]( Hospital 98280(SNOMED RXNORM) Repository CT) ENCOUNTERS ENCOUNTERS ADMIT/DISCHARGE ACCOUNT NUMBER ADMITTING ENCOUNTER LOCATION SOURCE CLASS 08/15/2018/08/15/20 [id number] Ambulatory BMSBuilding: Ranjith 18 BMS[facility] Repository 08/13/2018/08/13/20 [id number] Ambulatory [address] ding:ENRoom: Repository AC10 08/07/2018/08/07/20 [id number] Ambulatory BMSBuilding: [place] 18 BMS.CF.[facility] Repository 08/07/2018/08/07/20 [id number] [place]ulatory [place] 18 [facility] ding:EN Repository 07/25/2018/07/25/20 [id number] Ambulatory BMSBuilding: [place] 18 BMS.[facility] Repository 07/16/2018/07/16/20 [id number] Ambulatory BMSBuilding: [place] 18 BMS.CF.[facility] Repository 07/16/2018/07/16/20 [id number] Ambulatory [place] Ranjith 18 [facility] ding:ENRoom: Repository AC16 07/07/2018/07/07/20 [id number] Ambulatory BMSBuilding: [place] 18 BMS[facility] Repository 04/16/2018/04/16/20 [id number] Ambulatory AULTMANBuild [place] 18 ing:[facility] Repository 03/25/2018/03/25/20 [id number] Emergency [place] 18 [facility] ding:ED Repository 03/25/2018/03/25/20 [id number] Emergency Ranjith Ranj[address] ding:ED Repository 11/23/2017/11/24/19 [id number] Emergency [address] ding:ED Repository PAYERS PAYERS ENCOUNTER GUARANTOR PAYER SUBSCRIBER SOURCE 08/15/2018 ISABEL Annette Primary ISABEL Bryant Ranjith [id number] CR Insurance:AULTCAREPol [address]DOB: [address] Number: [id number] [facility] [address]Pef: [id number] Repository Date:8704-01-65ZZ BOX (EY) [address], [place] [address]AG: 08/15/2018 Secondary NOT GIVENUNK [place] Insurance:SELF PAY [facility] Number: Effective Repository Date:2018-07-16 08/13/2018 ISABEL M Primary ISABEL Bryant [place] [id number] CR Insurance:AULTCAREPol GEIBDOB: [address] Number: [id number] [facility] [address]Dxg: [id number] Repository Date:3537-15-49SY B[address] () [address], [place] [address]WG: 08/13/2018 Secondary NOT GIVENUNK Ranjith Insurance:SELF PAY [facility] Number: Effective Repository Date:2018-07-25 08/07/2018 ISABEL Bryant Primary ISABEL Bryant Ranjith [id number] CR Insurance:AULTCAREPol GEIBDOB: [address], icy Number: [id number] [facility] [address]Ifz: [id number] Repository Date:8632-58-48TX [address] () [address], [place] [address]WW: 08/07/2018 Secondary NOT GIVENUNK [place] Insurance:SELF PAY [facility] Number: Effective Repository Date:2018-08-07 08/07/2018 ISABEL Bryant Primary ISABEL Bryant [place] [id number] CR Insurance:AULTCAREPol GEIBDOB: [address] icy Number: [id number] [facility] [address]Mkv: [id number] Repository Date:0273-53-58BF [address] () [address], [place] [address]IU: 08/07/2018 Secondary NOT GIVENUNK Ranjith Insurance:SELF PAY [facility] Number: Effective Repository Date:2018-07-16 07/25/2018 ISABEL Bryant Primary NOT GIVENUNK [place] [id number] CR Insurance:SELF PAY [address] [address]Omd: Number: Effective Repository Date:2018-07-25 () 07/16/2018 ISABEL Bryant Primary ISABEL Bryant Ranjith [id number] CR Insurance:AULTCAREPol GEIBDOB: [address], icy Number: [id number] [facility] [address]Mdy: [id number] Repository Date:5966-90-04TD BOX () [address] [place] [address]JQ: 07/16/2018 Secondary NOT GIVENUNK [place] Insurance:SELF PAY [facility] Number: Effective Repository Date:2018-07-16 07/16/2018 ISABEL Bryant Primary ISABEL Bryant [place] [id number] CR Insurance:AULTCAREPol GEIBDOB: [address], icy Number: [id number] [facility] [address]Sfk: [id number] Repository Date:4677-38-58PX BOX () [address] [place] [address]TO: 07/16/2018 Secondary NOT GIVENUNK [place] Insurance:SELF PAY [facility] Number: Effective Repository Date:2018-07-07 07/07/2018 ISABEL Bryant Primary ISABEL Bryant [place] [id number] CR Insurance:AULTCAREPol GEIBDOB: [address] icy Number: [id number] [facility] [address]Mfj: [id number] Repository Date:0386-73-79PJ BOX () [address] [place] [address]JC: 07/07/2018 Secondary NOT GIVENUNK [place] Insurance:SELF PAY [facility] Number: Effective Repository Date:2018-07-05 04/16/2018 ISABEL Bryant Primary ISABEL Bryant [facility] GEIBDOB: Insurance:AULTCARE - GEIBDOB: [facility] [id number] Number: [id number] Repository [facility] [id number] [address] [place] [address], Date:2018-04-03 - [address] [place] [address] [id number] [place] [address]Psj: [email or web address] Name:[employer] 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 BOX MAIL.COMT: [address] [place] [address] (HP)Tel: [phone]: (WP) (HP) [phone] (WP) 03/25/2018 ZAHIDA Boothe Primary Isabel Phamoster [id number] CR Insurance:AULTCAREPol GeibDOB: Community [address] [place] [address] icy Number: [id number] [facility] [address]Mzg: [id number] Repository Date:0518-86-70JH BOX (HP) [address], [place] [address]VU: 03/25/2018 Secondary NOT GIVENUNK [place] Insurance:SELF PAY [facility] Number: Effective Repository Date:2018-03-25 03/25/2018 ZAHIDA Boothe Primary Isabel Phamoster [id number] CR Insurance:AULTCAREPol GeibDOB: [address] Number: [id number] [facility] [address]Pfa: [id number] Repository Date:8438-48-07YV BOX () [address] [place] [address]MY: 03/25/2018 Secondary NOT GIVENUNK Ranjith Insurance:SELF PAY [facility] Number: Effective Repository Date:2018-03-25 11/23/2017 ZAHIDA Shyann Primary Isabel Phamoster [id number] CR Insurance:AULTCAREPol GeibDOB: [address] icy Number: [id number] [facility] [address]Uff: [id number] Repository Date:8727-00-93ON BOX () [address], [place] [address]XJ: 11/23/2017 Secondary NOT GIVENUNK [place] Insurance:SELF PAY [facility] Number: Effective Repository Date:2017-11-23
== END 2018-08-13 08:08 | disposition home or self-care (01) ==
LOC: EN 05:55 → AC 05:57
PROVIDERS: Family Provider Family Medicine; PCP Family Medicine; Referring Provider Family Medicine; Visit Provider Surgery
PROC: (CPT 43235; principal; 2018-08-13 06:30)
DX: K21.9 Gastro-esophageal reflux disease without esophagitis (principal); Z79.899 Other long term (current) drug therapy
CPT/HCPCS: 43235; 91035; J7120

== ENCOUNTER 2019-11-20 05:18 | Emergency (ER) | payer OTHER, SELFPAY ==
[2019-11-20 05:19] VITALS: BP 127/83; PULSE 89; RESP 16; TEMP 36.7; O2SAT 98; BMI 39.1
--- NOTE | 2019-11-20 05:33 | RAD_ITS ---
HISTORY: c/o cough and weakness that started today ADDITIONAL HISTORY: None provided. COMPARISON: 03/25/2018 TECHNIQUE: Frontal and lateral chest radiographs. Number of images including paperwork: 3 FINDINGS: LUNGS AND PLEURA: No consolidation, mass or pleural effusion. CARDIAC SILHOUETTE: Unremarkable. MEDIASTINUM AND SOFÍA: Aortic tortuosity. UPPER ABDOMEN: Unremarkable. SKELETON AND SOFT TISSUES: No acute findings. Degenerative changes. OTHER DEVICES AND HARDWARE: None. RAD/Chest PA and Lateral IMPRESSION: No acute cardiopulmonary abnormality. at 0620 Reported and signed by: Isabel Vogel MD Electronically Signed: Isabel Vogel MD at 6:20 EDT Tel , Service support ,
[2019-11-20 05:57] LABS: Absolute Lymphocyte Count 2.73 X10^3/uL (0.83-4.51); Absolute Neutrophil Count 4.7 X10^3/uL (2.0-7.7); Basophil# 0.09 X10^3/uL; Eosinophil# 0.72 X10^3/uL; Eosinophils% 8.2 % (0-5); Glucose, Dipstick Normal (Normal); Hematocrit 42.7 % (37-47); Hemoglobin 14.1 g/dL (12.0-15.0); Ketone-Dipstick Negative (Negative); Leukocyte Esterase-Dipstick 25 /ul (Negative); Lymphocyte # 2.73 X10^3/ul (4.0); Lymphocyte % 30.9 % (19-41); Mean Corpuscular Hgb 30.3 pg (27.0-32.0); Mean Corpuscular Volume 91.8 fL (81-99); Mean Platelet Vol. 9.7 fl (6.2-12.0); Monocyte# 0.54 X10^3/uL; Monocyte% 6.1 % (0-10); Mucous, Urine 0 SEEN /hpf (<or=2+); NRBC Flagged by Analyzer 0 % (0-5); Neutrophil # 4.71 X10^3/uL (2.7-7.7); Neutrophil % 53.3 % (47-70); Nitrite-Dipstick Negative (Negative); Occult Blood-Urine 10 /ul (Negative); Platelet Count 262 K/mm3 (150-450); Protein-Dipstick Negative (Negative); RBC Distribution Width CV 13.1 % (11.6-14.6); RBC Distribution Width SD 42.9 fl (35.1-43.9); Red Blood Count 4.65 M/mm3 (4.2-5.4); Specific Gravity, Urine 1.015 (1.002-1.030); Urine Bilirubin Dipstick Negative (Negative); Urine Urobilinogen Normal (Normal); White Blood Count 8.8 K/mm3 (4.4-11.0)
[2019-11-20 06:04] LABS: Bacteria RARE /hpf (None Seen); Color, Urine Yellow (Yellow); Red Blood Cells-Urine 0-5 SEEN /hpf (0-5); Squamous Epithelial Cells - UA 5-10 SEEN /hpf (5-10); Urine Clarity Clear (Clear); White Blood Cells 5-10 SEEN /hpf (0-5)
[2019-11-20] MEDS: 0.9% Normal Saline 1,000 ML 150 ML IV (06:05)
[2019-11-20 06:12] LABS: Anion Gap 7 (5-15); BUN 11 mg/dL (7-18); BUN/Creat Ratio 10.4 RATIO (10-20); Calcium,Total 9.7 mg/dL (8.5-10.1); Chloride 108 mmol/L (98-107); Creatinine, Serum 1.06 mg/dL (0.55-1.02); EST Glomerular Filtration Rate 59 mL/min (>60); Est Glom Filt Rate - Afr Amer 71 mL/min (>60); Estimated Creatinine Clearance 60.76 ml/min; Glucose 104 mg/dL (74-106); Potassium 3.6 mmol/L (3.5-5.1); Sodium Level 142 mmol/L (136-145)
--- NOTE | 2019-11-20 06:16 | ED.DCSUM_ITS ---
- ER Visit Summary Date of Service: 11/20/19 Chief Complaint: [Weakness, cough, shaking] History of Present Illness: The patient is a 49 F [presents the emergency department with symptoms that started this morning. Patient states that she woke up and for about 5 minutes could not move her body at all. Patient then became hot and dizzy and felt presyncopal. Patient then started to shake uncontrollably. She is never had symptoms like that before. Patient states that she does have a cough which is chronic related to GERD. She did travel to [place] about 2 weeks ago. She denies any sick contacts. She denies fever, sore throat, or body aches. She denies any exposures to novel coronavirus patient.] On arrival patient states that she does feel improved. Physical Examination: [HEENT-PERRLA, EOMI. Cranial nerves II through XII grossly intact. TMs clear. Mucous membranes moist. No adenopathy. Cardiovascular-regular rate and rhythm without murmur or ectopy Lungs-clear to auscultation, chest wall stable without crepitus or subcu emphysema Abdomen-normoactive bowel sounds, soft, nontender, no rebound or rigidity, no peritoneal signs. Neuro yxtp-gseygq-jomz and heel frias testing within normal limits, negative Romberg, negative for drift, fundi benign Extremities-intact ?4, normal range of motion, normal pulses, atraumatic] Test Results: [CBC with differential is normal. Chemistries unremarkable. Urinalysis unremarkable. Chest x-ray showed nothing acute. Influenza was negative.] Emergency Department Course and Treatment: [] Treatment Plan: [I suspect patient likely had sleep paralysis. Patient's cough is mild and no other symptoms to indicate coronavirus although without the ability to test I cannot completely rule this out as some patients have just mild symptoms and she is advised to self quarantine for 14 days.] Disposition: [Discharged home in stable condition] Impression: [Sleep paralysis Anxiety Cough] This note was generated with JCD dictation software. It may contain incorrect words, spelling, and punctuation that were not noted in review of the chart prior to signing ED Disposition - Plan for ED Patient: Referrals: Bren Carvajal PA-C [Primary Care Provider] -
[2019-11-20 06:33] VITALS: BP 109/72; PULSE 71; RESP 16; O2SAT 95
--- NOTE | 2019-11-20 06:41 | ED.DEP ---
ED Disposition - Plan for ED Patient: Instructions: ED Panic Attack, ED URI Viral Referrals: Bren Carvajal PA-C [Primary Care Provider] - 10-14 Days if not better
[2019-11-20 07:22] VITALS: BP 135/77; PULSE 62; RESP 15; TEMP -9.4; TEMP 15; O2SAT 98
== END 2019-11-20 07:24 | disposition home or self-care (01) ==
LOC: ED 06:29
PROVIDERS: Emergency Provider Emergency Medicine; PCP Family Medicine
DX: G47.8 Other sleep disorders (principal); R05 Cough; F41.9 Anxiety disorder, unspecified; K21.9 Gastro-esophageal reflux disease without esophagitis; Z79.899 Other long term (current) drug therapy
CPT/HCPCS: 71046; 80048; 81001; 85025; 87804; 96360; 99282; J7030

== ENCOUNTER 2022-09-10 06:27 | Day surgery (SDC) | payer OTHER, SELFPAY ==
[2022-09-10 06:48] VITALS: BP 134/85; PULSE 78; RESP 16; TEMP 36.9; O2SAT 94; BMI 39.2
[2022-09-10] MEDS: Lactated Ringers 1,000 ML 15 ML IV (07:04)
--- NOTE | 2022-09-10 07:26 | PCM.HP.BLA ---
History and Physical Date of Admission: 09/10/22 Date of Service:? 08/29/22 MR#: [id number] Acct: [id number] Name:COTREZ ABEL Rep #: [id number] : 1970 ? ? Provider: Dr. Marine Garibay MD Age/Sex:? 51/F ? ? [place] [facility] Status: Signed with Addenda ADDENDUM by Dr. Marine Garibay MD on 09/01/22 at 0912 Intake Chief Complaint: c-scope/egd Allergies sulfamethoxazole [From Bactrim] Allergy (Verified 08/29/22 10:03) Hivestrimethoprim [From Bactrim] Allergy (Verified 08/29/22 10:03) Hives Medications fluvoxamine 100 mg capsule,extended release 24 hr 100 mg PO DAILY 07/07/18 [History Confirmed 11/20/19] fluvoxamine 50 mg tablet 50 mg PO 08/29/22 [History Confirmed 08/29/22] pantoprazole 40 mg tablet,delayed release 40 mg PO DAILY #30 tabs 08/29/22 [Rx Confirmed 08/29/22] Assessment and Plan Assessment and Plan (1) GERD (gastroesophageal reflux disease): ?Status:?Acute (2) Screening for colon cancer: ?Status:?Acute ? ? ? Orders: Orders Colonoscopy 08/30/22 ? ? EGD 08/30/22 ? Medications: New pantoprazole 40 mg? PO DAILY 30 tabs 5RF ? ? Plan Correction: Patient not having left upper quadrant pain on exam today.? Still plan to start the Protonix due to GERD. Physical Exam GI GI Narrative: Correction: Abdomen soft, nondistended, nontender 09/01/22 0912 <Electronically signed by Marine Garibay MD> Date Marine Garibay MD cc: ? RAVI Carvajal ~* Signed Intake Vital Signs ? 08/29/2309:02 Height 5 ft 4.5 in Weight: 236 lb BMI 39.9 BP 120/84 H Blood Pressure Location Rt brachial Position Sitting Respiration 18 Intake Visit Reasons:?CSCOPE/EGD Chief Complaint: c-scope/egd [employer] Required: No Is patient in pain?: No Allergies sulfamethoxazole [From Bactrim] Allergy (Verified 08/29/22 10:03) Hivestrimethoprim [From Bactrim] Allergy (Verified 08/29/22 10:03) Hives Medications fluvoxamine 100 mg capsule,extended release 24 hr 100 mg PO DAILY 07/07/18 [History Confirmed 11/20/19] fluvoxamine 50 mg tablet 50 mg PO 08/29/22 [History Confirmed 08/29/22] pantoprazole 40 mg tablet,delayed release 40 mg PO DAILY #30 tabs 08/29/22 [Rx Confirmed 08/29/22] PFSH Medical History?(Updated 09/01/22 @ 08:[address] Marine Garibay MD) Anxiety attack Chest pain Cough Elevated lipase GERD (gastroesophageal reflux disease) Left arm numbness OCD (obsessive compulsive disorder) Palpitations Paresthesia Syncope Surgical History? History of History of esophagogastroduodenoscopy (EGD) (~07/2018) History of laparoscopic cholecystectomy History of tonsillectomy history uterine ablation Family History?(Updated 08/29/22 @ 10:02 by Danica Delgado) Grandfather Heart diseaseMother Cancer ?? ? esophageal Heart disease Hypertension Social History? Smoking Status:? Never smoker alcohol intake:? never substance use type:? does not use HPI HPI HPI: 51-year-old female presents due to reflux for an EGD as well as screening colonoscopy.? Patient previously had an EGD in [address] Gomez and also had a Kasper probe they did briefly discuss possible Miky in the future.? Patient did not return for follow-up as she wanted to try more of lifestyle management.? Patient did start avoiding gluten and her daily symptoms did improve immensely with that but she still does have the burning of her esophagus some regurg also occasional dysphagia and cough.? However patient also stopped carbonation and denies really having the dysphagia after that.? Patient states she was on omeprazole initially in 2018 for a few months however did not feel like it worked best has not been on anything currently.? Patient's colonoscopy was greater than 10 years ago it was due to constipation at that time.? Patient denies a family history of colon cancer in her immediate family patient's maternal grandmother did have colon cancer in her 70s.? Patient has bowel movements at least every other day denies any blood. ROS General General: Yes fatigue; No weight change, appetite, colon cancer or breast cancer HEENT HEENT: No difficulty swallowing, eye injury, eye surgery, swollen glands or hoarseness Endo Endocrine: No thyroid disease, diabetes mellitus, thyroid cancer, Hair loss, heat intolerance or cold intolerance Skin Skin: No rash or changing moles Musc Musculoskeletal: Yes arthritis; No back problems, rheumatoid arthritis, gout or joint pain Cardio Cardiovascular: No murmur, pacemaker, heart disease, atrial fibrillation, high blood pressure, heart attack, heart stent, palpitations, shortness of breat with exertion or chest pain Additional Details: cardiovascular syncope Psych Psychiatric: Yes anxiety; No depression or hearing voices Resp Respiratory: No shortness of breath, No sleep apnea, No cough, No COPD, No asthma, No emphysema and No wheezing Gastro Gastrointestinal: No abdominal pain, No nausea or vomiting, No diarrhea, No constipation, No blood in stool, Yes acid reflux, No hemorrhoids, No ulcers, No gallbladder problem and No black,tarry stools Rory Hematologic: No blood thinners, No blood disorders, No bleeding, No anemia and No blood clots Neuro Neurologic: No numbness and No tingling Exam Const General: cooperative, healthy appearing and no acute distress Nutritional Appearance: well nourished [facility] Head: normal to inspection Resp Effort & Inspection: normal respiratory effort Auscultation: clear to auscultation bilaterally Cardio Rate: regular rate Rhythm: regular rhythm GI Inspection: non-distended Palpation: soft, no guarding, no hernias and tender in the LUQ Skin General: no rashes or lesions noted Neuro General: patient alert, patient awake and patient oriented x3 Extrem General: no clubbing, cyanosis or edema Psych Affect: normal affect Assessment and Plan Assessment and Plan (1) GERD (gastroesophageal reflux disease): ?Status:?Acute (2) Screening for colon cancer: ?Status:?Acute (3) LUQ abdominal pain: ?Status:?Acute ? ? ? Orders: Orders Colonoscopy 08/30/22 ? ? EGD 08/30/22 ? Medications: New pantoprazole 40 mg? PO DAILY 30 tabs 5RF ? ? Plan Did also send a prescription over for Protonix 40 mg daily to her pharmacy.? Patient was previously on omeprazole briefly after her last EGD in 2018 states it did not really work.? Patient started back on omeprazole about 2 weeks ago [id number] 20 mg daily.? Patient states she still has daily symptoms thus discussed with patient we will change her to Protonix and increase the dose to 40 mg daily.? I do think patient's left upper quadrant pain could be due to gastritis/GERD. Patient not previously follow-up with Dr. Gomez as he had discussed previously possibly a Miky could be helpful for her in 2018, did review previous notes including patient's pH monitoring showed a DeMeester score of 52.7 at that time..? Patient states she is not keen on getting surgery if she can try to change her diet.? Patient states going gluten-free has improved the symptoms.? Also discussed with patient that due to her BMI being about 39 would not recommend a Miky as a gastric bypass would be a better surgery to help with the reflux at this BMI.? Again patient is currently not interested in surgery options and wants to continue with lifestyle modifications and medications if needed. I have discussed the above with the patient. I have offered the patient EGD and colonoscopy for evaluation. I have explained the risks/benefits of the procedure and described the procedure.? I have discussed the risks with the patient, including but not limited to:? infection, bleeding, perforation of the GI tract requiring emergency surgery, inability to complete the procedure, injury to any internal organs, complications of anesthesia, etc. - the patient understands and agrees to proceed. I have answered all the patient's questions to the patient's satisfaction and the patient has no further questions. The patient has been given instructions for the colon cleansing preparation.? 1 day clears, MiraLAX Dulcolax split prep. Marine Garibay M.D. Pager: [phone] [facility] [address] [place] [address], [facility], [address] [place] [address] Office: [phone] Coding Level of Care Code Off vis,new,level 4 Diagnoses GERD (gastroesophageal reflux disease)? K21.9 Screening for colon cancer? Z12.11 LUQ abdominal pain? R10.12 09/01/22 0900 <Electronically signed by Marine Garibay MD> Date Marine Garibay MD
--- NOTE | 2022-09-10 07:30 | IMM_PTH ---
PATIENT: CORTEZ MOISE LOC: EN U#:[id number] AGE/SX: 51/F ROOM: RE09/10/[address]: Dr. Marine Garibay MD : 1970 BED: DIS: 09/10/2022 SPEC #: [id number] RECD: 09/10/22 14:19 STATUS: DARIEL REQ #: [id number] FREDI: 09/10/22 07:[address]: Marine Garibay DEPT: IMMUNOHISTOCHEMISTRY RECD BY: Corrie Michael ENTERED: 09/10/22 14:19 SP TYPE: IMMUNO OTHR DR: Bren Carvajal PA-C Tissues: Stomach, NOS Procedures: H Pylori (initial) PHYSICIAN & INSTITUTION [place] [id number] SPECIMEN INFORMATION: Tissue Source: Antrum biopsy Clinical Info: GERD, screening Specimen Number: [id number] CPT code: 15017 METHODOLOGY: Deparaffinized sections of prefer/formalin-fixed tissue or PAP/DQ stained slides are incubated with monoclonal/polyclonal antibodies/oligonucleotide probes. Localization is made via biotin free immunoperoxidase method. Appropriate controls are performed and reacted as expected. Results on target cell population are indicated in the following table: RESULTS: ANTIBODY / CLONE RESULT H Pylori (polyclonal) negative These tests were developed and their performance characteristics determined by [facility]. They may not have been cleared or approved by the U.S. Food and Drug Administration. The FDA has determined that such clearance or approval is not necessary. The above immunohistochemical/dualISH markers are ordered and reviewed by the Pathologist. INTERPRETATION: Antrum, biopsy: Negative for Helicobacter pylori organisms. AM:natan 09/11/2022
--- NOTE | 2022-09-10 07:30 | EGD_PTH ---
PATIENT: CORTEZ MOISE LOC: EN U#:[id number] AGE/SX: 51/F ROOM: RE09/10/[address]: Dr. Marine Garibay MD : 1970 BED: DIS: 09/10/2022 SPEC #: [id number] RECD: 09/10/22 11:03 STATUS: DARIEL SALINAS #: [id number] FREDI: 09/10/22 07:[address]: Marine Garibay DEPT: SURGICAL PATHOLOGY RECD BY: Rola Tafoya ENTERED: 09/10/22 13:22 SP TYPE: EGD BIOPSY OT DR: Bren Carvajal PA-C Tissues: Gastric mucous membrane Procedures: Surgery Specimen Level IV HEADER OPERATION: Colonoscopy, EGD ([facility] biopsy PRE-OP DIAGNOSIS: GERD, screening TISSUE SUBMITTED: Antrum biopsy for histo and H. pylori MICROSCOPIC DIAGNOSIS Gastric antrum, biopsy: Mild chronic gastritis. See comment. AM:natan 09/11/2022 COMMENT The results of immunohistochemistry for Helicobacter pylori will be reported separately ([id number]). MICROSCOPIC DESCRIPTION Slides are reviewed. GROSS DESCRIPTION Received in fixative is one container labeled with the patient's name and designated antrum biopsy. The specimen consists of one irregular fragment of light treadwell soft tissue that measures 0.3 x 0.3 x 0.1 cm. The specimen is totally submitted in one cassette. / SJ:natan 09/10/2022 TC:3 CPT: 61518
[2022-09-10 08:21] VITALS: BP 117/78; BP 134/85; PULSE 67; RESP 16; TEMP 36.9; O2SAT 99
[2022-09-10 08:26] VITALS: BP 114/77; BP 134/85; PULSE 62; RESP 16; O2SAT 98
--- NOTE | 2022-09-10 08:28 | OP.EGD_ITS ---
Patient Name: Isabel Geaimee Procedure Date: 09/10/2022 7:11 AM Date of : 1970 Age: 51 Procedure: Upper GI endoscopy Indications: Heartburn Providers: Marine Garibay MD Referring MD: Bren Carvajal Medicines: Monitored Anesthesia Care Patient Profile: This is a 51 year old female. Complications: No immediate complications. Procedure: Pre-Anesthesia Assessment: - Prior to the procedure, a History and Physical was performed, and patient medications and allergies were reviewed. The patient's tolerance of previous anesthesia was also reviewed. The risks and benefits of the procedure and the sedation options and risks were discussed with the patient. All questions were answered, and informed consent was obtained. Prior Anticoagulants: The patient has taken no previous anticoagulant or antiplatelet agents. ASA Grade Assessment: Per anesthesia. After reviewing the risks and benefits, the patient was deemed in satisfactory condition to undergo the procedure. After obtaining informed consent, the endoscope was passed under direct vision. Throughout the procedure, the patient's blood pressure, pulse, and oxygen saturations were monitored continuously. The colonoscope was introduced through the mouth, and advanced to the second part of duodenum. The upper GI endoscopy was accomplished without difficulty. The patient tolerated the procedure well. Scope In: 7:44:04 AM Scope Out: 7:48:39 AM Total Procedure Duration Time 0 hours 4 minutes 35 seconds Findings: The examined duodenum was normal. The Z-line was variable and was found 34 cm from the incisors. Mildly erythematous mucosa without bleeding was found in the gastric antrum. Biopsies were taken with a cold forceps for histology. Biopsies were taken with a cold forceps for Helicobacter pylori testing. The cardia and gastric fundus were normal on retroflexion. Impression: - Normal examined duodenum. - Z-line variable, 34 cm from the incisors. - Erythematous mucosa in the antrum. Biopsied. Recommendation: - Await pathology results. - Discharge patient to home. - Resume previous diet. - Continue present medications. - Await pathology results. Procedure Code(s): --- Professional --- 22649, Esophagogastroduodenoscopy, flexible, transoral; with biopsy, single or multiple Diagnosis Code(s): --- Professional --- K22.8, Other specified diseases of esophagus K31.89, Other diseases of stomach and duodenum R12, Heartburn CPT copyright 2017 [employer]. All rights reserved. The codes documented in this report are preliminary and upon medical billing coder review may be revised to meet current compliance requirements. MD Marine Gibbons MD 09/10/2022 8:27:49 AM This report has been signed electronically. Number of Addenda: 0 Note Initiated On: 09/10/2022 7:11 AM
--- NOTE | 2022-09-10 08:28 | OP.CCLET_ITS ---
09/10/2022 [facility] Re : Upper GI endoscopy procedure for Isabel Carvajal This procedure was performed on Saturday, September 10, 2022. My impressions and recommendations are as follows: Impressions : - Normal examined duodenum. - Z-line variable, 34 cm from the incisors. - Erythematous mucosa in the antrum. Biopsied. Recommendations : - Await pathology results. - Discharge patient to home. - Resume previous diet. - Continue present medications. - Await pathology results. My findings are described in the full procedure note, which is enclosed. If I can be of further assistance, please feel free to contact me at Doctor phone number(s): , Work: . Sincerely, MD Marine Gibbons MD 09/10/2022 8:27:49 AM This report has been signed electronically.
--- NOTE | 2022-09-10 08:30 | OP.COLON_ITS ---
Patient Name: Isabel Miller Procedure Date: 09/10/2022 7:48 AM Date of : 1970 Age: 51 Procedure: Colonoscopy Indications: Screening for colorectal malignant neoplasm Providers: Marine Garibay MD Referring MD: Bren Carvajal Medicines: Monitored Anesthesia Care Patient Profile: This is a 51 year old female. Last Colonoscopy: more than 10 years ago. Complications: No immediate complications. Procedure: Pre-Anesthesia Assessment: - Prior to the procedure, a History and Physical was performed, and patient medications and allergies were reviewed. The patient's tolerance of previous anesthesia was also reviewed. The risks and benefits of the procedure and the sedation options and risks were discussed with the patient. All questions were answered, and informed consent was obtained. Prior Anticoagulants: The patient has taken no previous anticoagulant or antiplatelet agents. ASA Grade Assessment: Per anesthesia. After reviewing the risks and benefits, the patient was deemed in satisfactory condition to undergo the procedure. After I obtained informed consent, the scope was passed under direct vision. Throughout the procedure, the patient's blood pressure, pulse, and oxygen saturations were monitored continuously. The colonoscope was introduced through the anus and advanced to the cecum, identified by the appendiceal orifice, ileocecal valve and palpation. The colonoscopy was performed without difficulty. The patient tolerated the procedure well. The quality of the bowel preparation was good. Scope In: 7:50:03 AM Scope Withdrawal Time 0 hours 14 minutes 11 seconds Scope Out: 8:16:45 AM Total Procedure Duration Time 0 hours 26 minutes 42 seconds Findings: Hemorrhoids were found on perianal exam. Non-bleeding internal hemorrhoids were found. The hemorrhoids were Grade I (internal hemorrhoids that do not prolapse). The entire examined colon appeared normal. Impression: - Hemorrhoids found on perianal exam. - Non-bleeding internal hemorrhoids. - The entire examined colon is normal. - No specimens collected. Recommendation: - Discharge patient to home. - Resume previous diet. - Continue present medications. - Repeat colonoscopy in 10 years for screening purposes. Procedure Code(s): --- Professional --- G0121, PT, Colorectal cancer screening; colonoscopy on individual not meeting criteria for high risk Diagnosis Code(s): --- Professional --- Z12.11, Encounter for screening for malignant neoplasm of colon K64.0, First degree hemorrhoids CPT copyright 2017 [employer]. All rights reserved. The codes documented in this report are preliminary and upon project controls specialist review may be revised to meet current compliance requirements. MD Marine Gibbons MD 09/10/2022 8:30:32 AM This report has been signed electronically. Number of Addenda: 0 Note Initiated On: 09/10/2022 7:48 AM
--- NOTE | 2022-09-10 08:30 | OP.CCLET_ITS ---
09/10/2022 [facility] Re : Colonoscopy procedure for Isabel Miller Dear Wei This procedure was performed on Saturday, September 10, 2022. My impressions and recommendations are as follows: Impressions : - Hemorrhoids found on perianal exam. - Non-bleeding internal hemorrhoids. - The entire examined colon is normal. - No specimens collected. Recommendations : - Discharge patient to home. - Resume previous diet. - Continue present medications. - Repeat colonoscopy in 10 years for screening purposes. My findings are described in the full procedure note, which is enclosed. If I can be of further assistance, please feel free to contact me at Doctor phone number(s): , Work: . Sincerely, MD Marine Gibbons MD 09/10/2022 8:30:32 AM This report has been signed electronically.
[2022-09-10 08:31] VITALS: BP 109/77; BP 134/85; PULSE 64; RESP 16; O2SAT 98
[2022-09-10 08:36] VITALS: BP 115/78; BP 134/85; PULSE 64; RESP 16; TEMP 36.6; O2SAT 98
[2022-09-10 08:55] VITALS: BP 134/85
== END 2022-09-10 09:03 | disposition home or self-care (01) ==
LOC: EN 06:28 → AC 06:29
PROVIDERS: PCP Family Medicine; Referring Provider Family Medicine; Visit Provider Surgery
PROC: 0DJD8ZZ Inspection of Lower Intestinal Tract, Via Natural or Artificial Opening Endoscopic (ICD-10-PCS; CPT 45378; principal; 2022-09-10 07:25)
DX: Z12.11 Encounter for screening for malignant neoplasm of colon (principal); K29.50 Unspecified chronic gastritis without bleeding; K21.9 Gastro-esophageal reflux disease without esophagitis; K64.0 First degree hemorrhoids; Z79.899 Other long term (current) drug therapy; Z80.0 Family history of malignant neoplasm of digestive organs
CPT/HCPCS: 45378; 43239; 88305; 88342; J7120; J2405

== ENCOUNTER → 2024-09-22 | Outpatient (CLI) | payer OTHER, SELFPAY ==
--- NOTE | 2024-09-22 14:02 | BI_ITS ---
PROCEDURE: SCRN MAMM (CAD)W/SUNDAR BILAT REASON FOR EXAM: F, Age 53 y/o, no family history. TECHNIQUE: Bilateral screening digital breast tomosynthesis with 2D and 3D images. Computer aided detection. COMPARISON: Prior exam(s) dating back to comparison is made with prior outside examination dated September 16, 2023.. FINDINGS: There are scattered areas of fibroglandular density. No suspicious masses, areas of developing architectural distortion, or suspicious calcifications. BI/SCRN MAMM (CAD)W/SUNDAR BILAT IMPRESSION: BI-RADS 1: NEGATIVE. RECOMMEND ANNUAL MAMMOGRAPHIC SCREENING. Follow-up code: Routine Follow-up The patient will be notified of the results by letter. Reading Location: [place] [address]
== END | disposition home or self-care (01) ==
LOC: OPBI 14:01
PROVIDERS: PCP Family Medicine; Referring Provider Nurse Practitioner Family; Visit Provider Nurse Practitioner Family
DX: Z12.31 Encounter for screening mammogram for malignant neoplasm of breast (principal)
CPT/HCPCS: 77063; 77067

== ENCOUNTER → 2025-07-13 | Outpatient (CLI) | payer OTHER, SELFPAY ==
--- NOTE | 2025-07-13 09:04 | US_ITS ---
PROCEDURE: BREAST LIMITED UNILATERAL 07/13/2025 REASON FOR EXAM: F, Age 54 y/o , MASTODYNIA Left upper-outer quadrant breast pain. COMPARISON: Prior mammogram done earlier in the day.. TECHNIQUE: Procedure Code: USBRSTLIMIT Modality: US Procedure: BREAST LIMITED UNILATERAL FINDINGS: The upper-outer quadrant of the left breast was examined with ultrasound. No sonographic abnormality is seen. US/Breast Limited Unilateral IMPRESSION: No sonographic abnormality is seen. BI-RADS 1: NEGATIVE RECOMMENDATION: Routine annual follow-up in 1 Year Reading Location: [id number]
--- NOTE | 2025-07-13 09:04 | BI_ITS ---
EXAM: DIAG MAMM W/CAD, BILAT N/A CLINICAL HISTORY: F, Age 54 y/o , MASTODYNIA. Pain in the deep upper lateral aspect of the left breast. TECHNIQUE: Procedure Code: [id number] Modality: MG Procedure: DIAG MAMM W/CAD, BILAT. COMPARISON: Prior exam(s) dated September 22, 2024.. FINDINGS: TISSUE DENSITY: There are scattered areas of fibroglandular density. Bilateral Breast Mammographic Findings: No significant masses, calcifications or other abnormalities are identified. No suspicious masses, areas of developing architectural distortion, or suspicious calcifications. There has been no significant interval change. BI/DIAG MAMM W/CAD, BILAT IMPRESSION: Stable bilateral screening mammogram. With the patient's history OVERALL FINAL ASSESSMENT BI-RADS 0: INCOMPLETE - NEED ADDITIONAL IMAGING EVALUATION. RECOMMENDATION: Ultrasound Recommended Additional Recommendation none A letter with findings and recommendations will be mailed to the patient. Reading Location: [facility]
--- OUTSIDE RECORDS SUMMARY | 2025-07-13 10:03 | XMS RPT_ITS | CCD ---
Author Organization [facility] ion Partnership [facility] Care Team Providers Care Automatic Hemmer Name Role Phone CRISPIN CARVAJAL PA-C Primary Care Physician [phone] RAVI Haq Primary Care Provider Creole RAVI TATE Referring Provider Dr. Marine Garibay Attending Provider Dr. Marine Garibay Other Provider [phone] [place], CRISPIN Admitting Unavailable [place], CRISPIN Primary Care Unavailable [place], CRISPIN Consulting Unavailable [place], CRISPIN Attending Unavailable PROVIDER, UNKNOWN Consulting Unavailable [place], CRISPIN Admitting Unavailable [place], CRISPIN Primary Care Unavailable [place], CRISPIN Attending Unavailable [place], BUFFALO PAC Consulting Unavailable PROVIDER, UNKNOWN Consulting Unavailable Rodrigo PEREZ, Tommy Flores Primary Care Provider TOMMY WALLACE Primary Care Unavailable RADHA, JILL Referring Unavailable RADHA, JILL Attending Unavailable Radha FOOD BEVERAGE ATTENDANT, Jill Attending Unavailable [facility] FOOD BEVERAGE ATTENDANT, Jill Referring Unavailable [facility] Primary Care Unavailable Radha FOOD BEVERAGE ATTENDANT, Elizabeth Attending Unavailable Radha FOOD BEVERAGE ATTENDANT, Elizabeth Referring Unavailable [facility] Primary Care Unavailable Allergies Allergy Classification Reported Allergen(s) Allergy Type Date of Onset Reaction(s) Facility (2 sources) Sulfonamides (Antibiotic); Translations: [sulfa drugs] Drug allergy [facility] (1 source) Sulfamethoxazole Drug Allergy 3 [facility] Work Phone: (1 source) Trimethoprim Drug Allergy 3 [facility] Work Phone: (3 sources) Sulfamethoxazole / Trimethoprim; Translations: [SULFAMETHOXAZOLE-TR IMETHOPRIM] Drug Allergy 5 [facility] (1 source) Sulfamethoxazole Drug Allergy 3 [facility] (1 source) Trimethoprim Drug Allergy 3 [facility] Medications Current Medications Medication Drug Class(es) Dates Sig (Normalized) Sig (Original) famotidine 20 mg oral tablet (1 source) Histamine-2 Receptor Antagonist Start: 09-05-2022 take 1 tablet by mouth at bedtime Famotidine (Pepcid) 20 mg Tablet Active 20 MG PO AT BEDTIME September 05, 2022 12:00am ferrous sulfate 325 mg oral tablet (2 sources) take 1 tablet by mouth once daily at breakfast ferrous sulfate (IRON, FERROUS SULFATE,) 325 mg (65 mg iron) tablet Take 325 mg by mouth daily with breakfast. Active fluvoxaMINE maleate 50 mg oral tablet (7 sources) Serotonin Reuptake Inhibitor Start: 08-29-2022 take 50 mg by mouth once daily Fluvoxamine Active 50 MG PO DAILY August 29, 2022 12:00am Start: 07-18-2020 fluvoxaMINE 10 0 mg oral capsule, extended release Dose : 100 mg = 1 cap(s), Oral, qHS, # 30 cap(s), 0 Refill(s) Start Date: 07/18/20 Status: Ordered Start: 07-07-2018 take 100 mg by mouth at bedtim e Fluvoxamine Active 100 MG PO AT BEDTIME July 07, 2018 1:15pm Start: 08-18-2014 End: 07-07-2018 take 50 mg by mouth once daily Fluvoxamine Discontinue d 50 MG PO DAILY August 18, 2014 12:00am July 07, 2018 1:17pm fluvoxaMINE (LUV OX) 100 mg tablet Take 50 mg by mouth daily at bedtime. Active multivit with iron,minerals (PXAGBANTGGZO-PYXL-RTYBPHBJ ORAL) (2 sources) multivit with ir on,minerals (KYBONNINRYIN-RAPQ-VJHGADFJ ORAL) Take by mouth once daily. Active norethindrone acetate 5 mg o ral tablet (1 source) Sta rt: 5 End : 4 norethindrone (AYGESTIN) 5 m g tablet Indications: Abnormal uterine bleeding Take one pill twice dialy until bleeding stops for at least 24 hours then once daily 40 tablet 0 06/27/2015 06/26/2024 Discontinued pantoprazole 40 mg delayed release oral tablet (3 sources) Proton Pump Inhibitor Sta rt: 4 take 1 tablet by mouth once pantoprazole DR (PROTONIX) 40 mg tablet Take 1 tablet by mouth every afternoon. 03/25/2024 Active Start: 08-29-2022 take 40 mg by mouth once daily Pantoprazole Active 40 MG PO DAILY August 29, 2022 12:00am Completed/Discontinued Medications Medication Drug Class(es) Dates Sig (Normalized) Sig (Original) omeprazole 40 mg delayed release oral capsule (1 source) Proton Pump Inhibitor Start: 07-07-2018 End: 07-25-2018 take 40 mg by mouth once daily Omeprazole Discontinued 40 MG PO DAILY July 07, 2018 12:00am July 25, 2018 8:39am ondansetron 4 mg disintegrating oral tablet (1 source) Serotonin-3 Receptor Antagonist Start: 03-25-2018 End: 07-07-2018 take 4 mg by mouth every eight hours as needed Ondansetron Discontinued 4 MG PO EVERY 8 HOURS NEEDED March 24, 2018 11:00pm July 07, 2018 1:15pm Problems Active Problems Problem Classification Problem Date Documented Date Episodic/Chronic Anxiety disorders (1 source) Obsessive-compulsive disorder; Translations: [Obsessive-compulsive disorder, unspecified] Chronic Cardiac dysrhythmias (2 sources) Ventricular premature beats 09-15-2021 Chronic Cardiac dysrhythmias (2 sources) Palpitations 07-17-2020 Episodic Disorders of lipid metabolism (2 sources) Hypertriglyceridemia 07-19-2020 Chronic Esophageal disorders (4 sources) Gastroesophageal reflux disease; Translations: [Gastro-esophageal reflux disease without esophagitis] 07-19-2020 Chronic Mood disorders (2 sources) Depressive disorder; Translations: [Other specified depressive episodes] 05-27-2008 Chronic Nonmalignant breast conditions (2 sources) Mastodynia; Translations: [Breast pain, left] Onset: 5 Episodic Nonspecific chest pain (1 source) Chest pain; Translations: [Chest pain, unspecified] Episodic Other liver diseases (1 source) High lipase level in serum; Translations: [Abnormal levels of other serum enzymes] Episodic Other nervous system disorders (2 sources) Disorder of autonomic nervous system 07-19-2020 Chronic Other nutritional; endocrine; and metabolic disorders (2 sources) Overweight 07-17-2020 Episodic Syncope (4 sources) Near syncope; Translations: [Syncope and collapse] 07-17-2020 Episodic Comment on above: Vasovagal near synco pe. Patient saw Dr. Mejia in 2016. Patient seen [facility] ER several times, last in February 2018. Past or Other Problems Problem Classification Problem Date Documented Date Episodic/Chronic Abdominal pain (2 sources) Right upper quadrant pain; Translations: [Right upper quadrant pain] Onset: 09-09-2014 09-09-2014 Episodic Biliary tract disease (2 sources) Biliary colic; Translations: [Calculus of bile duct without cholangitis or cholecystitis without obstruction] Onset: 10-03-2014 10-03-2014 Episodic Esophageal disorders (2 sources) Esophagitis; Translations: [Esophagitis, unspecified] Onset: 08-03-2008 08-03-2008 Episodic Other screening for suspected conditions (not mental disorders or infectious disease) (9 sources) Patient encounter status; Translations: [Encounter for screening for malignant neoplasm of colon] Onset: 01-10-2023 Episodic Unclassified (1 source) history uterine ablation Results Test Name Value Interpretation Reference Range Facility [facility] 07-02-2025 CNOV Office Visit (OBGYWM) ---- SUMAISABEL ([id number]) 1970 F Date Time Provider Department 07/02/25 9:00 AM JILL GARCIA OBGYWM During your visit today, we recorded the following information about you: Blood pressure Weight 126/78 100.4 kg Jill Garcia APRN.CNP 07/02/2025 9:41 AM Signed 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 Isabel is a 54 year old who presents for an annual gynecologic exam with complaints, vaginal dryness, upper (LT) breast pain Postmenopausal: Yes since 2015 HRT use: No. Sexually active: Yes HPV vaccine: No Last pap smear: 06/26/2024 normal HPV: 06/2024 negative History of abnormal pap: No Last mammogram: 08/2024 normal @ [facility] History of abnormal mammogram: Yes Pain with intercourse: Yes Vaginal dryness: Yes OB History Gravida2 Para2 Term0 Preterm0 AB0 Living2 SAB0 IAB0 Ectopic0 Multiple0 Live Births0 Associate Justice History LMP: 06/29/2015, Ablation Age at Menarche: Age at First : Age at Menopause: Associate Justice History Comments: Sexual Activity: Yes; Male; vasectomy Contraception: Surgical PAST MEDICAL HISTORY Diagnosis Date Acid reflux Depressive disorder, not elsewhere classified Esophagitis, unspecified Obsessive-compulsiv e disorders Syncope and collapse 08/26/2000 exercise induced Ventricular tachycardia with normal heart (HCC) PAST SURGICAL HISTORY Procedure Laterality Date DELIVERY ONLY 04/26 , low cervical DILATION AND CURETTAGE DXAND/THER NONOBSTETRIC 03/2015 Dilation AND curettage ESOPHAGOGASTRODUODE NOSCOPY TRANSORAL DIAGNOSTIC 08/03/2008 EGD LAPS SURG CHOLECYSTECTOMY W/CHOLANGIOGRAPHY 09/15/14 normal IOC NOVASURE 07/2015 TONSILLECTOMY PRIMARY/SECONDARY Tonsillectomy FAMILY HISTORY Problem Relation Age of Onset Thyroid Cancer Mother Coronary Artery Disease Maternal Grandfather SOCIAL HISTORY Social History Tobacco Use Smoking status: Never Smokeless tobacco: Never Vaping Use Vaping status: Never Used Substance Use Topics Alcohol use: Never Drug use: No REVIEW OF SYSTEMS Abdomen: No abdominal pain, nausea, vomiting, diarrhea, or constipation. No bloating, early satiety, indigestion, or increased flatulence. Bladder: No dysuria, gross hematuria, urinary frequency, urinary urgency, or incontinence Breast: No breast lumps, nipple d/c, overlying skin changes, redness or skin retraction and +pain in the left breast Allergies and current medication updated:Yes SENSITIVE EXAM: The sensitive examination was discussed with the Patient or Patient's Authorized Unix Architect. As applicable, any other physician, advance practice provider, medical student, or other health professional student that will be observing or involved in the sensitive examination for educational or training purposes was discussed with the Patient or Authorized Unix Architect. The Patient or Authorized Unix Architect has agreed to proceed with the sensitive examination. (Sensitive examination includes inspection and/or palpation of the breasts, pelvis, prostate and anorectal regions). EXAM: BP 126/78 Wt 221 lb 6.4 oz (100.4kg) LMP 06/29/2015 GENERAL: pleasant, female in no apparent distress HEENT: Normocephalic, atraumatic, mucus membranes moist, and no lesions DERMATOLOGY: Normal, without lesions, non-icteric, and non-hirsute BREAST: soft, non-tender, symmetric, no dominant mass, normal nipple-areolar complex, no lymphadenopathy, and no nipple discharge CHEST: Normal inspiratory effort ABDOMEN: soft, non-tender, and no masses PELVIC: external genitalia normal, normal Bartholin's glands, urethra, [place]'s glands, no vulvar lesions, no cervical lesions, physiologic discharge present, normal appearing perineal body and perianal region BIMANUAL: uterus normal size, shape and consistency, no adnexal masses, and non-tender RECTOVAGINAL: deferred. NEURO: alert and oriented x3,exam grossly non-focal EXTREMITIES: normal ASSESSMENT/PLAN: 1) Health maintenance: Pap/HPV up to date. Mammogram ordered Nutrition, exercise and routine health maintenance exams reviewed. Calcium/Vitamin D supplementation information provided. Colon cancer screening: patient to discuss with PCP 2) Follow up one year or sooner as needed 3) DX breast US and mammogram ordered for [facility] Jill Garcia APRN.FIRE SPRINKLER APPARATUS INSPECTOR Referring Provider: JILL GARCIA [[id number]] Allergies As of Date: 07/02/2025 Noted Allergy Reaction BACTRIM (SULFAMETHOXAZOLE-T RIMETH*08/31/2014 4 - Hives Date Reviewed: 07/02/2025 Reviewed by: Sintia Sullivan LPN - Fully Assessed Reason for Visit: Well Woman [1463] Primary Visit Diagnosis:Encounter for gynecological examination (general) (routine) without abnormal findings [Z01.419] Other Visit Diagnoses:Encounter for screening mammogram for breast cancer [Z12.31] Breast pain, left [N64.4] Prescriptions as of 1 (more content not included)... Normal [facility] SCRN MAMM (CAD)W/SUNDAR [place] n 09-22-2024 SCRN MAMM (CAD)W/SUNDAR [facility] Imaging Services [address] [place] [address] SCRN MAMM (CAD)W/SUNDAR BILAT MR#: [id number] Acct: [id number] Name: ISABEL MOISE Rep #: [id number] : 1970 F 53 From: Carlton alanis MD PCP: Crispin Carvajal PA-C Status: REG CLI Study: SCRN MAMM (CAD)W/SUNDAR BILAT Date of Exam: 08/27 04/19 Exam# [id number] Ordering Dr: Jill Garcia NP FOOD BEVERAGE ATTENDANT- C PROCEDURE: SCRN MAMM (CAD)W/SUNDAR BILAT REASON FOR EXAM: F, Age 53 y/o, no family history. TECHNIQUE: Bilateral screening digital breast tomosynthesis with 2D and 3D images. Computer aided detection. COMPARISON: Prior exam(s) dating back to comparison is made with prior outside examination dated September 16, 2023.. FINDINGS: There are scattered areas of fibroglandular density. No suspicious masses, areas of developing architectural distortion, or suspicious calcifications. BI/SCRN MAMM (CAD)W/SUNDAR BILAT IMPRESSION: BI-RADS 1: NEGATIVE. RECOMMEND ANNUAL MAMMOGRAPHIC SCREENING. Follow-up code: Routine Follow-up The patient will be notified of the results by letter. Reading Location: [facility] CC: FRANCHESKA Carvajal Sas Clinical Programmer: Signed Normal [facility] 3D MAMM BILAT SCREENon 09-16 3D MAMM BILAT SCREEN [place] [address] Patient: ISABEL MOISE Phone#: : 1970 Age: 52 Gender: F Pt. Type: Out Account: [id number] Location: Ordering: CRISPIN CARVAJAL Exam Date: 09/16/2023/15:17 Family Phys: Charge Code: [id number] Physician: [place] Order #: [id number] Dose#: PROCEDURE: BILATERAL SCREENING BREAST TOMOSYNTHESIS MAMMOGRAM WITH CAD COMPARISON: [facility], BILAT SCREENING, 07/14/2020, 15:09. [facility], RT SPOT/MAG DIGITAL, 07/14/2020, 15:27. INDICATIONS: SCREENING BREAST COMPOSITION: Scattered areas fibroglandular density. FINDINGS: DIAGNOSTIC CATEGORY 1--NEGATIVE: RIGHT BREAST: No significant suspicious finding. No significant change has occurred. LEFT BREAST: No significant suspicious finding. No significant change has occurred. RECOMMENDATIONS: ROUTINE MAMMOGRAM AND CLINICAL EVALUATION IN 12 MONTHS. PLEASE NOTE: A NORMAL MAMMOGRAM DOES NOT EXCLUDE THE POSSIBILITY OF BREAST CANCER. A CLINICALLY SUSPICIOUS PALPABLE LUMP SHOULD BE BIOPSIED. THIS FACILITY UTILIZES A REMINDER SYSTEM TO ENSURE THAT ALL PATIENTS RECEIVE REMINDER LETTERS FOR APPOINTMENTS. THIS INCLUDES REMINDERS FOR ROUTINE MAMMOGRAMS, DIAGNOSITC MAMMOGRAMS, OR OTHER BREAST IMAGING INTERVENTIONS WHEN APPROPRIATE. THIS PATIENT WILL BE PLACED IN THE APPROPRIATE REMINDER SYSTEM. Dictated by: Halima Tobar MD on 09/16/2023 at 17:53 Approved by: Halima Tobar MD on 09/16/2023 at 18:02 Normal [facility] CMP with eGFRon 01-10-2023 AGE 52 years Normal [facility] Comment on above: Performed By: #### 2 [id number] #### [facility],[address] [place], [place] [id number] Albumin [Mass/Vol] 4.1 g/dL Normal 3.4 - 5.0 [facility] Comment on above: Performed By: #### 2 41658 #### [facility],[address] [place] [address]251 Albumin/Globulin [Mass ratio] 1.3 {ratio} Normal 0.9 - 1.6 [facility] Comment on above: Performed By: #### 2 14727 #### [facility],[address] [place], [place] [id number] ALK PHOS 109 U/L Normal 46 - 116 [facility] Comment on above: Performed By: #### 2 52155 #### [facility],[address] [place] [address]3859 ALT [Catalytic activity/Vol] 34 U/L Normal 14 - 59 [facility] Comment on above: Performed By: #### 2 40892 #### [facility],[address] [place] [address] 71523 Anion gap [Moles/Vol] 13 mmol/L Normal 10 - 20 [facility] Comment on above: Performed By: #### 2 32781 #### [facility],[address] [place] [address] 35338 AST [Catalytic activity/Vol] 33 U/L Normal 13 - 39 [facility] Comment on above: Performed By: #### 2 56496 #### [facility],[address] [place], [place] [id number] B/C RATIO 17 ratio Normal 0 - 30 [facility] Comment on above: Performed By: #### 2 12947 #### [facility],[address] [place] [address] 98657 Bilirubin [Mass/Vol] 0.4 mg/dL Normal 0.2 - 1.0 [facility] Comment on above: Performed By: #### 2 05376 #### [facility],[address] [place] [address] 32138 Calcium [Mass/Vol] 9.3 mg/dL Normal 8.5 - 10.1 [facility] Comment on above: Performed By: #### 2 22039 #### [facility],[address] [place] [address] 42688 Chloride [Moles/Vol] 110 mmol/L High 98 - 107 [facility] Comment on above: Performed By: #### 2 94286 #### [facility],[address] [place] [address]151 CMP with eGFR Normal [facility] Comment on above: Result Comment: COMP REHENSIVE METABOLIC PANEL Performed By: #### 2 57746 #### [facility],[address] [place] [address] 68677 CO2 [Moles/Vol] 25.9 mmol/L Normal 21.0 - 32.0 [facility] Comment on above: Performed By: #### 2 10889 #### [facility],[address] [place] [address] 57173 Creatinine [Mass/Vol] 0.94 mg/dL Normal 0.55 - 1.02 [facility] Comment on above: Performed By: #### 2 29927 #### [facility],[address] [place] [address] 98428 GFR/1.73 sq M.predicted among non-blacks MDRD (S/P/Bld) [Vol rate/Area] mL/min/{1.73_m2} Normal 60 - 999 [facility] Comment on above: Performed By: #### 2 90562 #### [facility],[address] [place], [place] [id number] Result Comment: ACCO RDING TO THE NATIONAL KIDNEY DISEASE EDUCATION PROGRAM(NKDE), A NORMAL eGFR IS A VALUE GREATER THAN OR EQUAL TO 60 ML/MIN/1.73 SQ METERS. CHRONIC KIDNEY DISEASE: <60mL/MIN/1.73 SQ METERS KIDNEY FAILURE: <15mL/MIN/1.73 SQ METERS THIS TEST SHOULD ONLY BE USED FOR PATIENTS 18 YEARS OF AGE AND OLDER. Globulin (S) [Mass/Vol] 3.2 g/dL Normal 1.5 - 3.8 [facility] Comment on above: Performed By: #### 2 80196 #### [facility],[address] [place] [address] 86426 Glucose [Mass/Vol] 92 mg/dL Normal 74 - 106 [facility] Comment on above: Performed By: #### 2 46944 #### [facility],[address] [place] [address] 58835 Potassium [Moles/Vol] 4.3 mmol/L Normal 3.5 - 5.1 [facility] Comment on above: Performed By: #### 2 12983 #### [facility],[address] [place] [address] 08254 Protein [Mass/Vol] 7.3 g/dL Normal 6.4 - 8.2 [facility] Comment on above: Performed By: #### 2 24014 #### [facility],[address] [place] [address] 00946 Sodium [Moles/Vol] 145 mmol/L Normal 136 - 145 [facility] Comment on above: Performed By: #### 2 97308 #### [facility],[address] [place] [address] 35353 Urea nitrogen [Mass/Vol] 16 mg/dL Normal 7 - 18 [facility] Comment on above: Performed By: #### 2 90153 #### [facility],[address] [place] [address] 61059 LIPID PROFILEon 01-10-2023 Cholesterol [Mass/Vol] 175 mg/dL Normal 0 - 240 [facility] Comment on above: Performed By: #### 2 01384 #### [facility],[address] [place] [address] 84481 Cholesterol in HDL [Mass/Vol] 61 mg/dL High 40 - 60 [facility] Comment on above: Performed By: #### 2 00021 #### [facility],[address] [place] [address] 78331 Cholesterol in LDL [Mass/Vol] 98 mg/dL Normal 0 - 129 [facility] Comment on above: Performed By: #### 2 57089 #### [facility],[address] [place] [address] 70510 Cholesterol.total/Cho lesterol in HDL [Mass ratio] 2.9 {ratio} Normal 0.0 - 5.0 [facility] Comment on above: Performed By: #### 2 43170 #### [facility],[address] [place] [address] 06070 Lipid 1996 panel Normal [facility] Comment on above: Result Comment: LIPI D PROFILE Performed By: #### 2 78237 #### [facility],[address] [place] [address] 00423 Triglyceride [Mass/Vol] 79 mg/dL Normal 0 - 150 [facility] Comment on above: Performed By: #### 2 76808 #### [facility],[address] [place] [address] 14790 .Auto Diffon 10-19-2021 Basophil, Absolute 0.10 10 3/mcL Normal 0.00-0.27 [facility] ([place]) Comment on above: Performed By: #### C BC, ADIFF, ANEU, TSH, CMP, FT4, GFR, T3 #### [address] [address] Basophils/100 WBC (Bld) 1.6 % Normal 0.0-2.5 [facility] ([place]) Comment on above: Performed By: #### C BC, ADIFF, ANEU, TSH, CMP, FT4, GFR, T3 #### [address] [address] Eosinophil, Absolute 0.50 10 3/mcL Normal 0.00-0.65 A [facility] ([place]) Comment on above: Performed By: #### C BC, ADIFF, ANEU, TSH, CMP, FT4, GFR, T3 #### [address] [address] Eosinophils/100 WBC (Bld) 6.0 % Normal 0.0-6.0 [facility] ([place]) Comment on above: Performed By: #### C BC, ADIFF, ANEU, TSH, CMP, FT4, GFR, T3 #### [address] [address] Lymphocyte, Absolute 2.10 10 3/mcL Normal 0.90-4.32 A [facility] ([place]) Comment on above: Performed By: #### C BC, ADIFF, ANEU, TSH, CMP, FT4, GFR, T3 #### [address] [address] Lymphocytes/100 WBC (Bld) 26.0 % Normal 20.0-40.0 [facility] ([place]) Comment on above: Performed By: #### C BC, ADIFF, ANEU, TSH, CMP, FT4, GFR, T3 #### [address] [address] Monocyte, Absolute 0.40 10 3/mcL Normal 0.09-1.40 [facility] ([place]) Comment on above: Performed By: #### C BC, ADIFF, ANEU, TSH, CMP, FT4, GFR, T3 #### [address] [address] Monocytes/100 WBC (Bld) 5.2 % Normal 2.0-13.0 [facility] ([place]) Comment on above: Performed By: #### C BC, ADIFF, ANEU, TSH, CMP, FT4, GFR, T3 #### [address] [address] Neutrophils/100 WBC (Bld) 61.2 % Normal 50.0-75.0 [facility] ([place]) Comment on above: Performed By: #### C BC, ADIFF, ANEU, TSH, CMP, FT4, GFR, T3 #### [address] [address] .GFRon 10-19-2021 GFR >60 Normal [facility] ([place]) Comment on above: Result Comment: GFR Population mean for , Non- Americans Ages 20-29 = 116 mL/min/1.73 sq.m. Ages 30-39 = 107 mL/min/1.73 sq.m. Ages 40-49 = 99 mL/min/1.73 sq.m. Ages 50-59 = 93 mL/min/1.73 sq.m. Ages 60-69 = 85 mL/min/1.73 sq.m. Ages 70+ = 75 mL/min/1.73 sq.m. Chronic Kidney Disease: Less than 60 mL/min/1.73 square meters End Stage Renal Disease: Less than 15 mL/min/1.73 square meters Performed By: #### C BC, ADIFF, ANEU, TSH, CMP, FT4, GFR, T3 #### [address] [address] GFR Non- 60 ml/min/1.73sqm Normal [facility] ([place]) Comment on above: Result Comment: GFR Population mean for , Non- Americans Ages 20-29 = 116 mL/min/1.73 sq.m. Ages 30-39 = 107 mL/min/1.73 sq.m. Ages 40-49 = 99 mL/min/1.73 sq.m. Ages 50-59 = 93 mL/min/1.73 sq.m. Ages 60-69 = 85 mL/min/1.73 sq.m. Ages 70+ = 75 mL/min/1.73 sq.m. Chronic Kidney Disease: Less than 60 mL/min/1.73 square meters End Stage Renal Disease: Less than 15 mL/min/1.73 square meters Performed By: #### C BC, ADIFF, ANEU, TSH, CMP, FT4, GFR, T3 #### [place] [id number] .NEUABSon 10-19-2021 Neutrophil, Absolute 5.00 10 3/mcL Normal 2.25-8.10 A [facility] ([place]) Comment on above: Performed By: #### C BC, ADIFF, ANEU, TSH, CMP, FT4, GFR, T3 #### [address] [address] CBCon 10-19-2021 Erythrocyte distribution width (RBC) [Ratio] 13.5 % Normal 11.5-15.5 [facility] ([place]) Comment on above: Performed By: #### C BC, ADIFF, ANEU, TSH, CMP, FT4, GFR, T3 #### [place] [address] Hematocrit (Bld) [Volume fraction] 39.5 % Normal 34.0-46.0 [facility] ([place]) Comment on above: Performed By: #### C BC, ADIFF, ANEU, TSH, CMP, FT4, GFR, T3 #### [place] [id number] Hgb 13.6 G/dL Normal 12.0-16.0 [facility] ([place]) Comment on above: Performed By: #### C BC, ADIFF, ANEU, TSH, CMP, FT4, GFR, T3 #### [place] [address] MCH (RBC) [Entitic mass] 29.8 pg Normal 27.0-33.0 [facility] ([place]) Comment on above: Performed By: #### C BC, ADIFF, ANEU, TSH, CMP, FT4, GFR, T3 #### [place] [address] MCHC 34.4 G/dL Normal 32.0-36.0 [facility] ([place]) Comment on above: Performed By: #### C BC, ADIFF, ANEU, TSH, CMP, FT4, GFR, T3 #### [place] [address] MCV (RBC) [Entitic vol] 86.5 fL Normal 80.0-99.0 [facility] ([place] Comment on above: Performed By: #### C BC, ADIFF, ANEU, TSH, CMP, FT4, GFR, T3 #### [place] [address] Platelet 260 10 3/mcL Normal 150-450 [facility] ([place]) Comment on above: Performed By: #### C BC, ADIFF, ANEU, TSH, CMP, FT4, GFR, T3 #### [place] [address] Platelet mean volume (Bld) [Entitic vol] 8.5 fL Normal 6.6-10.5 [facility] ([place]) Comment on above: Performed By: #### C BC, ADIFF, ANEU, TSH, CMP, FT4, GFR, T3 #### [place] [address] RBC 4.57 10 6/mcL Normal 4.10-5.30 [facility] ([place]) Comment on above: Performed By: #### C BC, ADIFF, ANEU, TSH, CMP, FT4, GFR, T3 #### [address] [address] WBC 8.20 10 3/mcL Normal 4.50-10.80 [facility] ([place]) Comment on above: Performed By: #### C BC, ADIFF, ANEU, TSH, CMP, FT4, GFR, T3 #### [address] [address] CMPon 10-19-2021 Albumin Level 4.0 G/dL Normal 3.2-4.8 [facility] ([place]) Comment on above: Performed By: #### C BC, ADIFF, ANEU, TSH, CMP, FT4, GFR, T3 #### [place] [id number] Albumin/Globulin [Mass ratio] 1.5 {ratio} Normal 0.9-1.6 [facility] ([place]) Comment on above: Performed By: #### C BC, ADIFF, ANEU, TSH, CMP, FT4, GFR, T3 #### [address] [address] ALP [Catalytic activity/Vol] 126 U/L Normal 38-126 [facility] ([place]) Comment on above: Performed By: #### C BC, ADIFF, ANEU, TSH, CMP, FT4, GFR, T3 #### [address] [address] ALT [Catalytic activity/Vol] 17 U/L Normal 10-49 [facility] ([place] Comment on above: Performed By: #### C BC, ADIFF, ANEU, TSH, CMP, FT4, GFR, T3 #### [address] [address] AST [Catalytic activity/Vol] 23 U/L Normal 8-34 [facility] ([place] Comment on above: Performed By: #### C BC, ADIFF, ANEU, TSH, CMP, FT4, GFR, T3 #### [address] [address] Bili Total 0.20 mg/dL Normal 0.20-1.20 [facility] ([place]) Comment on above: Result Comment: Use of this assay is not recommended for patients undergoing treatment with eltrombopag due to the potential for falsely elevated results. Performed By: #### C BC, ADIFF, ANEU, TSH, CMP, FT4, GFR, T3 #### [place] [id number] BUN/Creatinine Ratio 14.1 ratio Normal 10.0-22.0 [facility] ([place]) Comment on above: Performed By: #### C BC, ADIFF, ANEU, TSH, CMP, FT4, GFR, T3 #### [place] [address] Calcium [Mass/Vol] 10.1 mg/dL Normal 8.7-10.4 [facility] ([place]) Comment on above: Result Comment: No te - New Reference Range in effect 20 Performed By: #### C BC, ADIFF, ANEU, TSH, CMP, FT4, GFR, T3 #### [place] [id number] Chloride [Moles/Vol] 112 mmol/L High 98-110 [facility] ([place]) Comment on above: Performed By: #### C BC, ADIFF, ANEU, TSH, CMP, FT4, GFR, T3 #### [place] [id number] CO2 [Moles/Vol] 27 mmol/L Normal 22-32 [facility] ([place]) Comment on above: Performed By: #### C BC, ADIFF, ANEU, TSH, CMP, FT4, GFR, T3 #### [place] [id number] Creatinine [Mass/Vol] 0.99 mg/dL Normal 0.50-1.20 [facility] ([place]) Comment on above: Performed By: #### C BC, ADIFF, ANEU, TSH, CMP, FT4, GFR, T3 #### [place] [id number] Electrolyte Balance 6.0 mEq/L Normal 4.0-15.0 [facility] ([place]) Comment on above: Performed By: #### C BC, ADIFF, ANEU, TSH, CMP, FT4, GFR, T3 #### [address] [address] Globulin 2.7 G/dL Normal 1.5-3.8 [facility] ([place]) Comment on above: Performed By: #### C BC, ADIFF, ANEU, TSH, CMP, FT4, GFR, T3 #### [address] [address] Glucose [Mass/Vol] 79 mg/dL Normal 70-110 [facility] ([place]) Comment on above: Performed By: #### C BC, ADIFF, ANEU, TSH, CMP, FT4, GFR, T3 #### [address] [address] Potassium [Moles/Vol] 4.1 mmol/L Normal 3.5-5.0 [facility] ([place]) Comment on above: Performed By: #### C BC, ADIFF, ANEU, TSH, CMP, FT4, GFR, T3 #### [address] [address] Sodium [Moles/Vol] 145 mmol/L Normal 136-145 [facility] ([place]) Comment on above: Performed By: #### C BC, ADIFF, ANEU, TSH, CMP, FT4, GFR, T3 #### [address] [address] Total Protein 6.7 G/dL Normal 5.7-8.2 [facility] ([place]) Comment on above: Result Comment: No te - New Reference Range in effect 20 Performed By: #### C BC, ADIFF, ANEU, TSH, CMP, FT4, GFR, T3 #### [address] [address] Urea nitrogen [Mass/Vol] 14.0 mg/dL Normal 8.0-22.0 [facility] ([place] Comment on above: Performed By: #### C BC, ADIFF, ANEU, TSH, CMP, FT4, GFR, T3 #### [address] [address] FT4on 10-19-2021 Free T4 1.03 mcg/dL Normal 0.89-1.76 [facility] ([place]) Comment on above: Result Comment: No te - New Reference Range in effect 20 Performed By: #### C BC, ADIFF, ANEU, TSH, CMP, FT4, GFR, T3 #### [place] [address] LABORATORYOrdered By: SYSTEM SYSTEM on 10-19-2021 Albumin BCP dye [Mass/Vol] 4.0 G/dL Invalid Interpretation Code 3.2 - 4.8 G/dL AH ADM SS Albumin/Globulin [Mass ratio] 1.5 {ratio} Invalid Interpretation Code 0.9 - 1.6 ratio AH ADM SS ALP [Catalytic activity/Vol] 126 U/L Invalid Interpretation Code 38 - 126 U/L AH ADM SS ALT No additional P-5'-P [Catalytic activity/Vol] 17 U/L Invalid Interpretation Code 10 - 49 U/L AH ADM SS AST [Catalytic activity/Vol] 23 U/L Invalid Interpretation Code 8 - 34 U/L AH ADM SS Basophils (Bld) [#/Vol] 0.10 103/mcL Invalid Interpretation Code 0.00 - 0.27 10^3/mcL AH Remisol SS Basophils/100 WBC (Bld) 1.6 % Invalid Interpretation Code 0.0 - 2.5 % AH Remisol SS Bilirubin [Mass/Vol] 0.20 mg/dL Invalid Interpretation Code 0.20 - 1.20 mg/dL AH ADM SS Calcium [Mass/Vol] 10.1 mg/dL Invalid Interpretation Code 8.7 - 10.4 mg/dL AH ADM SS Chloride [Moles/Vol] 112 mmol/L Invalid Interpretation Code 98 - 110 mEq/L AH ADM SS CO2 [Moles/Vol] 27 mmol/L Invalid Interpretation Code 22 - 32 mEq/L AH ADM SS Creatinine [Mass/Vol] 0.99 mg/dL Invalid Interpretation Code 0.50 - 1.20 mg/dL AH ADM SS Electrolyte Balance 6.0 mEq/L Invalid Interpretation Code 4.0 - 15.0 mEq/L AH ADM SS Eosinophils (Bld) [#/Vol] 0.50 103/mcL Invalid Interpretation Code 0.00 - 0.65 10^3/mcL AH Remisol SS Eosinophils/100 WBC (Bld) 6.0 % Invalid Interpretation Code 0.0 - 6.0 % AH Remisol SS Erythrocyte distribution width (RBC) [Ratio] 13.5 % Invalid Interpretation Code 11.5 - 15.5 % AH Remisol SS Free T4 [Mass/Vol] 1.03 mcg/dL Invalid Interpretation Code 0.89 - 1.76 mcg/dL AH ADM SS GFR/1.73 sq M.predicted among blacks MDRD (S/P/Bld) [Vol rate/Area] ml/min/1.73sqm Invalid Interpretation Code AH Chemistry S GFR/1.73 sq M.predicted among non-blacks MDRD (S/P/Bld) [Vol rate/Area] 60 ml/min/1.73sqm Invalid Interpretation Code Chemistry S Globulin 2.7 G/dL Invalid Interpretation Code 1.5 - 3.8 G/dL ADM SS Glucose [Mass/Vol] 79 mg/dL Invalid Interpretation Code 70 - 110 mg/dL AH ADM SS Hematocrit (Bld) [Volume fraction] 39.5 % Invalid Interpretation Code 34.0 - 46.0 % AH Remisol SS Hemoglobin (Bld) [Mass/Vol] 13.6 G/dL Invalid Interpretation Code 12.0 - 16.0 G/dL AH Remisol SS Lymphocytes (Bld) [#/Vol] 2.10 103/mcL Invalid Interpretation Code 0.90 - 4.32 10^3/mcL AH Remisol SS Lymphocytes/100 WBC (Bld) 26.0 % Invalid Interpretation Code 20.0 - 40.0 % AH Remisol SS MCH (RBC) [Entitic mass] 29.8 pg Invalid Interpretation Code 27.0 - 33.0 pg AH Remisol SS MCHC (RBC) [Mass/Vol] 34.4 G/dL Invalid Interpretation Code 32.0 - 36.0 G/dL AH Remisol SS MCV (RBC) [Entitic vol] 86.5 fL Invalid Interpretation Code 80.0 - 99.0 fL AH Remisol SS Monocytes (Bld) [#/Vol] 0.40 103/mcL Invalid Interpretation Code 0.09 - 1.40 10^3/mcL AH Remisol SS Monocytes/100 WBC (Bld) 5.2 % Invalid Interpretation Code 2.0 - 13.0 % AH Remisol SS Neutrophils (Bld) [#/Vol] 5.00 103/mcL Invalid Interpretation Code 2.25 - 8.10 10^3/mcL AH Remisol SS Neutrophils/100 WBC (Bld) 61.2 % Invalid Interpretation Code 50.0 - 75.0 % AH Remisol SS Platelet mean volume (Bld) [Entitic vol] 8.5 fL Invalid Interpretation Code 6.6 - 10.5 fL AH Remisol SS Platelets (Bld) [#/Vol] 260 103/mcL Invalid Interpretation Code 150 - 450 10^3/mcL AH Remisol SS Potassium [Moles/Vol] 4.1 mmol/L Invalid Interpretation Code 3.5 - 5.0 mEq/L AH ADM SS Protein [Mass/Vol] 6.7 G/dL Invalid Interpretation Code 5.7 - 8.2 G/dL AH ADM SS RBC (Bld) [#/Vol] 4.57 106/mcL Invalid Interpretation Code 4.10 - 5.30 10^6/mcL AH Remisol SS Sodium [Moles/Vol] 145 mmol/L Invalid Interpretation Code 136 - 145 mEq/L AH ADM SS T3 [Mass/Vol] 94 ng/dL Invalid Interpretation Code 60 - 181 ng/dL AH ADM SS TSH Qn 1.392 mIU/mL Invalid Interpretation Code 0.550 - 4.780 mIU/mL AH ADM SS Urea nitrogen [Mass/Vol] 14.0 mg/dL Invalid Interpretation Code 8.0 - 22.0 mg/dL AH ADM SS Urea nitrogen/Creatinine [Mass ratio] 14.1 ratio Invalid Interpretation Code 10.0 - 22.0 ratio AH ADM SS WBC (Bld) [#/Vol] 8.20 103/mcL Invalid Interpretation Code 4.50 - 10.80 10^3/mcL AH Remisol SS T3on 10-19-2021 Total T3 94 ng/dL Normal 60-181 [facility] ([place]) Comment on above: Performed By: #### C BC, ADIFF, ANEU, TSH, CMP, FT4, GFR, T3 #### [facility] [address] [place] [address] TSHon 10-19-2021 TSH 1.392 mIU/mL Normal 0.550-4.780 [facility] ([place]) Comment on above: Result Comment: No te - New Reference Range in effect 20 Performed By: #### C BC, ADIFF, ANEU, TSH, CMP, FT4, GFR, T3 #### [place] [id number] [address] [place] [address] Coronavirus 2019on 0 COVID 19 Source FOOD BEVERAGE ATTENDANT Normal [facility] Comment on above: Result Comment: Naso pharyngeal Swab Called to and read back by: [facility]of[facility] Corrected on 06/23 AT 0531: Previously reported as NASAL SWAB Lab 06/23/2020 0527 Pablo Bernabe Corrected on 06/23 AT 0531: Previously reported as NASAL SWAB Performed By: #### C OVID #### [facility] Reference [address] [place], [place] [address] COVID 19 Result FOOD BEVERAGE ATTENDANT Abnormal Negative for COVID19 (SARS CoV2) by PCR. [facility] Comment on above: Result Comment: Posi tive for This test was developed and its performance characteristics determined by [facility]'s [facility] [place]. This test has been authorized by [facility] under an Emergency Use Authorization (EUA). This test has been validated in accordance with the FDA's Guidance Document Policy for Diagnostics Testing in Laboratories Certified to Perform High Complexity Testing under CLIA prior to Emergency use Authorization for Coronavirus Disease 2019 during the Public Health Emergency issued on October 24, 2019. COVID19 (SARS This test was developed and its performance characteristics determined by [facility]'s [facility] [place]. This test has been authorized by FDA under an Emergency Use Authorization (EUA). This test has been validated in accordance with the FDA's Guidance Document Policy for Diagnostics Testing in Laboratories Certified to Perform High Complexity Testing under CLIA prior to Emergency use Authorization for Coronavirus Disease 2019 during the Public Health Emergency issued on October 24, 2019. CoV2) by This test was developed and its performance characteristics determined by [facility]'s [facility] [place]. This test has been authorized by FDA under an Emergency Use Authorization (EUA). This test has been validated in accordance with the FDA's Guidance Document Policy for Diagnostics Testing in Laboratories Certified to Perform High Complexity Testing under CLIA prior to Emergency use Authorization for Coronavirus Disease 2019 during the Public Health Emergency issued on October 24, 2019. PCR.(*) This test was developed and its performance characteristics determined by [facility] [place]. This test has been authorized by FDA under an Emergency Use Authorization (EUA). This test has been validated in accordance with the FDA's Guidance Document Policy for Diagnostics Testing in Laboratories Certified to Perform High Complexity Testing under CLIA prior to Emergency use Authorization for Coronavirus Disease 2019 during the Public Health Emergency issued on October 24, 2019. Performed By: #### C OVID #### [facility] Reference [address] [place] [address] [facility] METABOLIC [facility] 04-27-2020 Albumin [Mass/Vol] 4.6 g/dL Normal 3.6-5.1 [facility] Comment on above: Performed By: #### 7 600, [address] #### [facility] [address] Mail Sorter And Delivery: Suleman Morales MD Albumin/Globulin [Mass ratio] 1.8 (calc) Normal 1.0-2.5 [facility] Comment on above: Performed By: #### 7 600, [address] #### [facility] [place] [address] Mail [facility] And Delivery: Suleman Morales MD ALP [Catalytic activity/Vol] 101 U/L Normal 31-125 [facility] Comment on above: Performed By: #### 7 600, 6[address]25 #### [facility] [address] Mail Sorter And Delivery: Suleman Morales MD ALT [Catalytic activity/Vol] 12 U/L Normal 6-29 [facility] Comment on above: Performed By: #### 7 600, 44105 #### [facility] [place] [address] Mail Sorter And Delivery: Suleman Morales MD AST [Catalytic activity/Vol] 14 U/L Normal 10-35 [facility] Comment on above: Performed By: #### 7 600, 09964 #### [facility]-[address], [address] [place] [address] Mail Sorter And Delivery: Suleman Morales MD Bilirubin [Mass/Vol] 0.4 mg/dL Normal 0.2-1.2 [facility] Comment on above: Performed By: #### 7 600, 73615 #### [facility]-[address], [address] [place] [address] Mail Sorter And Delivery: Suleman Morales MD Calcium [Mass/Vol] 10.1 mg/dL Normal 8.6-10.2 [facility] Comment on above: Performed By: #### 7 600, 18322 #### [facility]-[address], [address] [place] [address] Mail Sorter And Delivery: Suleman Morales MD Chloride [Moles/Vol] 106 mmol/L Normal 98-110 [facility] Comment on above: Performed By: #### 7 600, 66666 #### [facility]-[address], [address] [place] [address] Mail Sorter And Delivery: Suleman Morales MD CO2 [Moles/Vol] 25 mmol/L Normal 20-32 [facility] Comment on above: Performed By: #### 7 600, 39047 #### [facility] [address] Mail Sorter And Delivery: Suleman Morales MD Creatinine [Mass/Vol] 1.05 mg/dL Normal 0.50-1.[address] [facility] [address] [facility] Comment on above: Performed By: #### 7 600, 93008 #### [facility] [address] Mail Sorter And Delivery: Suleman Morales MD eGFR NON-AFR. EMIRATI 63 mL/min/1.73m2 Normal > OR = 60 [facility] Comment on above: Performed By: #### 7 600, 34119 #### [facility]-[address], [address] [place] [address] Mail Sorter And Delivery: Suleman Morales MD GFR/1.73 sq M predicted among blacks MDRD (S/P/Bld) [Vol rate/Area] 73 mL/min/{1.73_m2} Normal > OR = 60 [facility] Comment on above: Performed By: #### 7 600, 58264 #### [facility]-[address], [address] [place] [address] Mail Sorter And Delivery: Suleman Morales MD Globulin (S) [Mass/Vol] 2.6 g/dL (calc) Normal 1.9-3.7 [facility] Comment on above: Performed By: #### 7 600, 25673 #### [facility]-[address], [address] [place] [address] Mail Sorter And Delivery: Suleman Morales MD Glucose [Mass/Vol] 90 mg/dL Normal 65-99 [facility] Comment on above: Result Comment: Fasting reference interval Performed By: #### 7 600, 42057 #### [facility]-[address], [address] [place] [address] Mail Sorter And Delivery: Suleman Morales MD Potassium [Moles/Vol] 4.2 mmol/L Normal 3.5-5.[address] [facility] [address] [facility] Comment on above: Performed By: #### 7 600, 15451 #### [facility], [address] [place] [address] Mail Sorter And Delivery: Suleman Morales MD Protein [Mass/Vol] 7.2 g/dL Normal 6.1-8.1 [facility] Comment on above: Performed By: #### 7 600, 71316 #### [facility]-[address], [address] [place] [address] Mail Sorter And Delivery: Suleman Morales MD Sodium [Moles/Vol] 141 mmol/L Normal 135-146 [facility] Comment on above: Performed By: #### 7 600, 70032 #### [facility], [address] [place] [address] Mail Sorter And Delivery: Suleman Morales MD Urea nitrogen [Mass/Vol] 9 mg/dL Normal 7-25 [facility] Comment on above: Performed By: #### 7 600, 89296 #### [facility]-[address], [address] [place] [address] Mail Sorter And Delivery: Suleman Morales MD Urea nitrogen/Creatinine [Mass ratio] NOT APPLICABLE Normal 6-22 [facility] Comment on above: Performed By: #### 7 600, 59572 #### [facility], [address] [place] [address] Mail Sorter And Delivery: Suleman Morales MD LIPID PANEL, STANDARD 09-0 Cholesterol [Mass/Vol] 193 mg/dL Normal <200 [facility] Comment on above: Performed By: #### 7 600, 36493 #### [facility], [address] [place] [address] Mail Sorter And Delivery: Suleman Morales MD Cholesterol in HDL [Mass/Vol] 58 mg/dL Normal > OR = 50 [facility] Comment on above: Performed By: #### 7 600, 03138 #### [facility], [address] [place] [address] Mail Sorter And Delivery: Suleman Morales MD Cholesterol in LDL [Mass/Vol] 103 mg/dL (calc) High [facility] Comment on above: Result Comment: Refe rence range: <100 Desirable range <100 mg/dL for primary prevention; <70 mg/dL for patients with CHD or diabetic patients with > or = 2 CHD risk factors. LDL-C is now calculated using the Berlin-Kia calculation, which is a validated novel method providing better accuracy than the Friedewald equation in the estimation of LDL-C. [place] CAMARENA et al. FUNMI. 2013;310(19): 7142-4076 (http://education.[employer]ak.[employer]/faq/UUO914) Performed By: #### 7 600, 91601 #### [facility]-[address], [address] [place] [address] Mail Sorter And Delivery: Suleman Morales MD Cholesterol.total/Cho lesterol in HDL [Mass ratio] 3.3 (calc) Normal <5.0 [facility] Comment on above: Performed By: #### 7 600, 95648 #### [facility], [address] [place], [place] [id number] Mail Sorter And Delivery: Suleman Morales MD NON HDL CHOLESTEROL 135 mg/dL (calc) High <130 [facility] Comment on above: Result Comment: For patients with diabetes plus 1 major ASCVD risk factor, treating to a non-HDL-C goal of <100 mg/dL (LDL-C of <70 mg/dL) is considered a therapeutic option. Performed By: #### 7 600, 00348 #### [facility], [address] [place] [phone] Mail Sorter And Delivery: Suleman Morales MD Triglyceride [Mass/Vol] 200 mg/dL High <150 [facility] Comment on above: Result Comment: If a non-fasting specimen was collected, consider repeat triglyceride testing on a fasting specimen if clinically indicated. Babita et al. J. of Clin. Lipidol. 2015;9:129-169. Performed By: #### 7 600, 68445 #### [facility], [address] [place] [id number] Mail Sorter And Delivery: Suleman Morales MD Vital Signs Date Time Vital Sign Value Performing Clinician Kevin chirinos 06-26-2024 07:37-0400 Body height 165.1 cm Jill Radha DENTAL LABORATORY SUPERVISOR.FIRE SPRINKLER APPARATUS INSPECTOR Work Phone: [facility] 06-26-2024 07:37-0400 Body mass index (BMI) [Ratio] 40.6 kg/m2 Jill Radha DENTAL LABORATORY SUPERVISOR.FIRE SPRINKLER APPARATUS INSPECTOR Work Phone: [facility] 06-26-2024 07:37-0400 Body weight 110.68 kg Jill Radha DENTAL LABORATORY SUPERVISOR.FIRE SPRINKLER APPARATUS INSPECTOR Work Phone: [facility] 06-26-2024 07:37-0400 Diastolic blood pressure 74 mm[Hg] Jill Evant DENTAL LABORATORY SUPERVISOR.FIRE SPRINKLER APPARATUS INSPECTOR Work Phone: [facility] 06-26-2024 07:37-0400 Systolic blood pressure 122 mm[Hg] Jill Evant DENTAL LABORATORY SUPERVISOR.FIRE SPRINKLER APPARATUS INSPECTOR Work Phone: [facility] 09-10-2022 08:36-0500 Body temperature 97.9 [degF] RAVI TATE Work Phone: [facility] Work Phone: 09-10-2022 08:36-0500 Diastolic blood pressure 78 mm[Hg] PA-C [employer] PA Work Phone: [facility] Work Phone: 09-10-2022 08:36-0500 Heart rate 64 /min PA-C Crispin Zendrive PA Work Phone: [facility] Work Phone: 09-10-2022 08:36-0500 Respiratory rate 16 /min PA-C Crispin [employer]rive PA Work Phone: [facility] Work Phone: 09-10-2022 08:36-0500 SaO2% (BldA) [Mass fraction] 98 % PA-C Crispin Zendrive PA Work Phone: [facility] Work Phone: 09-10-2022 08:36-0500 Systolic blood pressure 115 mm[Hg] PA-C [employer] PA Work Phone: [facility] Work Phone: 09-10-2022 06:48-0500 Body height 165.1 cm PA-C [employer] PA Work Phone: [facility] Work Phone: 09-10-2022 06:48-0500 Body mass index (BMI) [Ratio] 39.2 kg/m2 PA-C [employer] PA Work Phone: [facility] Work Phone: 09-10-2022 06:48-0500 Body weight 107.04 kg PA-C Crispin Zendrive PA Work Phone: [facility] Work Phone: 08-29-2022 10:02-0500 Body mass index (BMI) [Ratio] 39.9 kg/m2 PA-C [employer] PA Work Phone: [facility] Work Phone: 08-29-2022 10:02-0500 Body weight 107.04 kg PA-C [employer] PA Work Phone: [facility] Work Phone: 08-29-2022 10:02-0500 Diastolic blood pressure 84 mm[Hg] PA-C [employer] PA Work Phone: [facility] Work Phone: 08-29-2022 10:02-0500 Respiratory rate 18 /min PA-C [employer] PA Work Phone: [facility] Work Phone: 08-29-2022 10:02-0500 Systolic blood pressure 120 mm[Hg] PA-C [employer] PA Work Phone: [facility] Work Phone: Encounters Encounter Date Encounter Type Care Provider Facility Start: 07-13-2025 ambulatory Elizabeth Garcia FOOD BEVERAGE ATTENDANT Faci lity:[facility] Start: 07-02-2025 End: 07-02-2025 ambulatory TOMMY WALLACE Facility:[facility] Start: 07-02-2025 Encounter for gynecological examination (general) (routine) without abnormal findings JILL GARCIA [facility] Start: 09-22-2024 End: 09-22-2024 ambulatory Jill Garcia FOOD BEVERAGE ATTENDANT Facility:[facility] Start: 06-26-2024 End: 06-26-2024 Telephone encounter Tommy Wallace MD Work Phone: [address] [place] [address] Comment on above: Orders Start: 06-26-2024 End: 06-26-2024 Patient encounter procedure Jill Garcia APRN.FIRE SPRINKLER APPARATUS INSPECTOR Work Phone: OB/Gynecology Comment on above: Encounter for gyneco logical examination (general) (routine) without abnormal findings (Primary Dx); Encounter for screening for human papillomavirus (HPV); Pap smear for cervical cancer screening; Encounter for screening mammogram for malignant neoplasm of breast Start: 06-26-2024 End: 06-26-2024 Patient encounter status Jill Garcia APRN.FIRE SPRINKLER APPARATUS INSPECTOR Work Phone: [facility] Start: 09-16-2023 End: 09-16-2023 ambulatory [facility] Start: 01-10-2023 End: 01-10-2023 ambulatory [facility] Start: 09-10-2022 Non-patient / Non-visit PAJamey TATE Work Phone: [facility] Start: 09-10-2022 End: 09-10-2022 Admission to same day surgery center PA-Shyann Carvajal PA Work Phone: [facility] Start: 09-10-2022 End: 09-10-2022 ambulatory PA-Shyann Carvajal PA Work Phone: [facility] Work Phone: Start: 08-29-2022 End: 08-29-2022 Patient encounter procedure RAVI Carvajal PA Work Phone: [facility] Start: 10-19-2021 End: 10-19-2021 Patient encounter procedure MS JUD NAYLOR BEBETO [facility] Start: 09-22-2021 End: 09-22-2021 Patient encounter procedure MS JUD NAYLOR BEBETO [facility] Procedures Date Procedure Procedure Detail Performing Clinician Start: 09-10-2022 Colonoscopy RAVI Carvajal PA Work Phone: Start: 08-05-2019 Cardiovascular stres s testing MS JUD NAYLOR BEBETO Comment on above: IMPRESSION: 1. No evidence of inducible ischemia or prior myocardial infarction. 2. Normal LEFT ventricular size, wall motion and systolic function with calculated LVEF 70%. 3. When compared to the previous images from 2018, no new changes were noted. Start: 12-07-2016 Echocardiography MS SANDY ESPARZAINO PA Comment on above: Outside Source Comme nt: EF 55% Start: 01-27-2014 Lipid 1996 panel - S gustavo or Plasma Jill Garcia DENTAL LABORATORY SUPERVISOR.FIRE SPRINKLER APPARATUS INSPECTOR Work Phone: Miscellaneous (quali fier value) MS JUD NAYLOR BEBETO Comment on above: uterine ablation Tonsillectomy JUD Shyann TATE Plan of Treatment Date Care Activity Detail Author Start: 07-02-2025 End: 07-02-2025 Patient encounter procedure 07/02/2025 9:00 AM EST Office Visit OB/Gynecology [address] [place], [place] [id number] Jill Garcia, DENTAL LABORATORY SUPERVISOR.FIRE SPRINKLER APPARATUS INSPECTOR [address] [facility] [address] [place], [place] [id number] annual OB/Gynecology Comment on above: annual Start: 04-26-2024 Covid-19 Vaccine ( season) Covid-19 Vaccine ( season) [facility] Start: 04-26-2024 Influenza vaccination Influenza Vacc ine (#1) [facility] Start: 09-10-2022 [place] [facility] [place]: Start: 11-15-2021 Shingrix Vaccine (1 of 2) Shingrix Vaccine (1 of 2) [facility] Start: 02-08-2019 Screening for malign ant neoplasm of cervix Cervical Cancer Screening [facility] Start: 01-27-2019 Lipid panel Lipid Screening [place] Start: 11-15-2016 Diabetes Screening Diabetes Screenin g [facility] Start: 11-15-2016 Screening for malign ant neoplasm of colon [facility] Start: 02-04-2015 Screening for malign ant neoplasm of breast Mammogram Screening [facility] Start: 11-15-1990 Hepatitis B Vaccine (1 of 3 - 19+ 3-dose series) Hepatitis B Vaccine (1 of 3 - 19+ 3-dose series) [facility] Start: 11-15-1990 Urine microalbumin profile DTaP,Tdap,Td Vaccine (1 - Tdap) [facility] Start: 11-15-1989 Anxiety Screening Anxiety Screening [facility] Start: 11-15-1989 Hepatitis C screening Hepatitis C Sc reepoornima [facility] Start: 11-15-1989 HIV screening HIV Screening [facility] Colonoscopy [facility] Work Phone: PAP TEST PAP TEST Lab Rou giuseppe Encounter for screening for human papillomavirus (HPV) Pap smear for cervical cancer screening 06/26/2024 8:07 AM EDT [facility] Work Phone: Patient referral [facility] Work Phone: Urine test [facility] Work Phone: Payers Date Payer Category Payer Self-pay [id number] 2024 Unknown [id number] 2024 Unknown MMO MMO [employer] PPO [id number] 2024-Present [phone] [address] [place] [address] PPO [id number] 2014 Unknown [id number] 1971 Unknown [id number] 1971 Unknown [id number] Unknown [id number] Unknown [id number] Unknown [id number] Social History Date Type Detail Facility Start: 01-27-2014 End: 07-18-2020 Never smoked tobacco (finding) [facility] Start: 1970 Sex Assigned At Female A [facility] Start: 09-05-2022 Tobacco smoking stat us MTIS Unknown if ever smoked [facility] Work Phone: Start: 08-18-2014 Spouse/ Signif icant Other [facility] Work Phone: Start: 01-27-2014 Tobacco use and exposure Smokeless tobacco non-user [facility] Start: 06-26-2024 Alcoholic beverage intake Current non-drinker of alcohol (finding) [facility] Start: 06-26-2024 History of Social function [facility] Start: 06-26-2024 Tobacco use panel [facility] National Score (1-100), lower number is lower risk 72 [facility] Start: 1970 Sex assigned at [facility] Goals Date Patient Goal Desired Activity /State Mental Status Date Assessment Result Facility 09-10-2022 Cognitive function Voice/Name [facility] Work Phone: Clinical Notes 06-26-2024 to 07-02-2025 Telephone Encounter - Yina Mendieta RN - 06/26/2024 9:31 AM EDTTelephone Encounter - Yina Mendieta RN - 06/26/2024 9:31 AM EDTTelephone Encounter - Viviane Driscoll - 06/26/2024 8:06 AM EDT Note Date & Type Note Facility 07-02-2025 Note HNO ID: [id number] Author: JILL GARCIA APRN.CNP Service: ? 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 Isabel is a 54 year old who presents for an annual gynecologic exam with complaints, vaginal dryness, upper (LT) breast pain Postmenopausal: Yes since 2015 HRT use: No. Sexually active: Yes HPV vaccine: No Last pap smear: 06/26/2024 normal HPV: 06/2024 negative History of abnormal pap: No Last mammogram: 08/2024 normal @ [facility] History of abnormal mammogram: Yes Pain with intercourse: Yes Vaginal dryness: Yes OB History Gravida2 Para2 Term0 Preterm0 AB0 Living2 SAB0 IAB0 Ectopic0 Multiple0 Live Births0 Associate Justice History LMP: 06/29/2015, Ablation Age at Menarche: Age at First : Age at Menopause: Associate Justice History Comments: Sexual Activity: Yes; Male; vasectomy Contraception: Surgical PAST MEDICAL HISTORY Diagnosis Date Acid reflux Depressive disorder, not elsewhere classified Esophagitis, unspecified Obsessive-compulsive disorders Syncope and collapse 08/26/2000 exercise induced Ventricular tachycardia with normal heart (HCC) PAST SURGICAL HISTORY Procedure Laterality Date DELIVERY ONLY 04/26 , low cervical DILATION AND CURETTAGE DXAND/THER NONOBSTETRIC 03/2015 Dilation AND curettage ESOPHAGOGASTRODUODENOSCOPY TRANSORAL DIAGNOSTIC 08/03/2008 EGD LAPS SURG CHOLECYSTECTOMY W/CHOLANGIOGRAPHY 09/15/14 normal IOC NOVASURE 07/2015 TONSILLECTOMY PRIMARY/SECONDARY Tonsillectomy FAMILY HISTORY Problem Relation Age of Onset Thyroid Cancer Mother Coronary Artery Disease Maternal Grandfather SOCIAL HISTORY Social History Tobacco Use Smoking status: Never Smokeless tobacco: Never Vaping Use Vaping status: Never Used Substance Use Topics Alcohol use: Never Drug use: No REVIEW OF SYSTEMS Abdomen: No abdominal pain, nausea, vomiting, diarrhea, or constipation. No bloating, early satiety, indigestion, or increased flatulence. Bladder: No dysuria, gross hematuria, urinary frequency, urinary urgency, or incontinence Breast: No breast lumps, nipple d/c, overlying skin changes, redness or skin retraction and +pain in the left breast Allergies and current medication updated:Yes SENSITIVE EXAM: The sensitive examination was discussed with the Patient or Patient's Authorized Unix Architect. As applicable, any other physician, advance practice provider, medical student, or other health professional student that will be observing or involved in the sensitive examination for educational or training purposes was discussed with the Patient or Authorized Unix Architect. The Patient or Authorized Unix Architect has agreed to proceed with the sensitive examination. (Sensitive examination includes inspection and/or palpation of the breasts, pelvis, prostate and anorectal regions). EXAM: BP 126/78 Wt 221 lb 6.4 oz (100.4kg) LMP 06/29/2015 GENERAL: pleasant, female in no apparent distress HEENT: Normocephalic, atraumatic, mucus membranes moist, and no lesions DERMATOLOGY: Normal, without lesions, non-icteric, and non-hirsute BREAST: soft, non-tender, symmetric, no dominant mass, normal nipple-areolar complex, no lymphadenopathy, and no nipple discharge CHEST: Normal inspiratory effort ABDOMEN: soft, non-tender, and no masses PELVIC: external genitalia normal, normal Bartholin's glands, urethra, [place]'s glands, no vulvar lesions, no cervical lesions, physiologic discharge present, normal appearing perineal body and perianal region BIMANUAL: uterus normal size, shape and consistency, no adnexal masses, and non-tender RECTOVAGINAL: deferred. NEURO: alert and oriented x3,exam grossly non-focal EXTREMITIES: normal ASSESSMENT/PLAN: 1) Health maintenance: Pap/HPV up to date. Mammogram ordered Nutrition, exercise and routine health maintenance exams reviewed. Calcium/Vitamin D supplementation information provided. Colon cancer screening: patient to discuss with PCP 2) Follow up one year or sooner as needed 3) DX breast US and mammogram ordered for [facility] Jill Garcia APRN.FIRE SPRINKLER APPARATUS INSPECTOR [facility] 06-26-2024 Telephone encounter Note Order signed and faxed. Yina Mendieta RN [facility] 06-26-2024 Miscellaneous Notes Order signed and faxed. Yina Mendieta RN Patient is due for SUNDAR mammography in Aug [address] and fax to [facility], documented in this encounter [facility] 06-26-2024 Telephone encounter Note Patient is due for SUNDAR mammography in Aug [address] order and fax to [facility], [facility] 06-26-2024 History of Presen t illness Narrative Criminal Justice Lawyer offered: Patient declines. Isabel is a 53 year old who presents for an annual gynecologic exam without complaints. Postmenopausal: Yes HRT use: No. Last Pap: 02/08/2014 normal HPV: 02/08/2014 N/A History of abnormal pap: No Last mammogram: 2023 normal @ [facility] History of abnormal mammogram: No Sexually active: Yes Pain with intercourse: some Postcoital bleeding: No OB History T0 L2 SAB0 IAB0 Ectopic0 Multiple0 Live Births0 Associate Justice History LMP: 06/29/2015, Ablation Age at Menarche: Age at First : Age at Menopause: Associate Justice History Comments: Sexual Activity: Yes; Male; vasectomy Contraception: Surgical PAST MEDICAL HISTORY Diagnosis Date Acid reflux Depressive disorder, not elsewhere classified Esophagitis, unspecified Obsessive-compulsive disorders Syncope and collapse 08/26/2000 exercise induced Ventricular tachycardia with normal heart (HCC) PAST SURGICAL HISTORY Procedure Laterality Date DELIVERY ONLY 04/26 , low cervical DILATION & CURETTAGE DX&/THER NONOBSTETRIC 03/2015 Dilation & curettage ESOPHAGOGASTRODUODENOSCOPY TRANSORAL DIAGNOSTIC 08/03/2008 EGD LAPS SURG CHOLECYSTECTOMY W/CHOLANGIOGRAPHY 09/15/14 normal IOC NOVASURE 07/2015 TONSILLECTOMY PRIMARY/SECONDARY <AGE 12 10/30 Tonsillectomy FAMILY HISTORY Problem Relation Age of Onset Thyroid Cancer Mother Coronary Artery Disease Maternal Grandfather SOCIAL HISTORY Social History Tobacco Use Smoking status: Never Smokeless tobacco: Never Vaping Use Vaping status: Never Used Substance Use Topics Alcohol use: No Drug use: No REVIEW OF SYSTEMS Abdomen: No abdominal pain, nausea, vomiting, diarrhea, or constipation. No bloating, early satiety, indigestion, or increased flatulence. Bladder: No dysuria, gross hematuria, urinary frequency, urinary urgency, or incontinence Breast: No breast lumps, nipple d/c, overlying skin changes, redness or skin retraction Allergies and current medication updated:Yes SENSITIVE EXAM: The sensitive examination was discussed with the Patient or Patient's Authorized Unix Architect. As applicable, any other physician, advance practice provider, medical student, or other health professional student that will be observing or involved in the sensitive examination for educational or training purposes was discussed with the Patient or Authorized Unix Architect. The Patient or Authorized Unix Architect has agreed to proceed with the sensitive examination. (Sensitive examination includes inspection and/or palpation of the breasts, pelvis, prostate and anorectal regions). EXAM: Ht 5' 5 (1.65m) Wt 244 lb (110.7kg) LMP 06/29/2015 BMI 40.60 kg/(m^2). GENERAL: pleasant, female in no apparent distress HEENT: Normocephalic, atraumatic, mucus membranes moist, and no lesions DERMATOLOGY: Normal, without lesions, non-icteric, and non-hirsute BREAST: soft, non-tender, symmetric, no dominant mass, normal nipple-areolar complex, no lymphadenopathy, and no nipple discharge CHEST: Normal inspiratory effort ABDOMEN: soft, non-tender, and no masses PELVIC: external genitalia normal, normal Bartholin's glands, urethra, [place]'s glands, no vulvar lesions, no cervical lesions, physiologic discharge present, normal appearing perineal body and perianal region BIMANUAL: uterus normal size, shape and consistency, no adnexal masses, and non-tender RECTOVAGINAL: deferred. NEURO: alert and oriented x3,exam grossly non-focal EXTREMITIES: normal ASSESSMENT/PLAN: 1) Health maintenance: Pap done with HPV. Mammogram ordered Nutrition, exercise and routine health maintenance exams reviewed. Calcium/Vitamin D supplementation information provided. 2) Follow up one year or sooner as needed Jill Garcia APRN.LORRAINE documented in this encounter [facility] Evaluation + Plan note Future Appointments Appointment Date:10/04/2021 01:00:00 PM Scheduled Provider: Location:[facility] Appointment Type:CV Office Procedure Holter Monitor Appointment Date:09/28/2022 09:45:00 AM Scheduled Provider:JUD NAYLOR Location:[facility] Appointment Type:CV OV Future Scheduled TestsAspartate Aminotransferase 09/15/21Thyroid Stimulating Hormone 09/15/21Free T4 09/15/21ALT / SGPT 09/15/21Complete Blood Count 09/15/21Total T3 09/15/21Complete Metabolic Panel 09/15/21 [facility] Evaluation + Plan note Future Appointments Appointment Date:09/28/2022 09:45:00 AM Scheduled Provider:JUD NAYLOR Location:[facility] Appointment Type:CV OV [facility] Evaluation note Diagnosis Onset Date GERD (gastroesophageal reflux disease) acute [facility] Work Phone: Evaluation note* Diagnosis Encounter for gynecological examination (general) (routine) without abnormal findings- Primary Encounter for screening for human papillomavirus (HPV) Special screening examination for human papillomavirus (HPV) Pap smear for cervical cancer screening Screening for malignant neoplasm of the cervix Encounter for screening mammogram for malignant neoplasm of breast Other screening mammogram documented in this encounter [facility] course Narrative No data available for this section [facility] Hospital Discharge instructions No data available for this section [facility] Summary Purpose Family History No Family History Records Found Relationship Condition Age at Onset Recorded Date/T kate grandfather Cardiac disease Unknown mother Malignant neoplasm Unknown Cardiac disease Unknown Hypertension Unknown Advance Directives No Advanced Directives Records Found Advance Directive Response Recorded Date/ Time Advance Directives No July 8:42am Living Will No September 05 2:13pm Power of 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 Operator No September 05, 2022 2:13pm Chief Complaint and Reason for Visit Chief Complaint CSCOPE/EGD Reason for Visit GERD (gastroesophage al reflux disease) Screening for colon cancer Additional Source Comments INFORMATION SOURCE (unrecogn ized section and content) DATE CREATED AUTHOR 04/27/2020 [facility] DATE CREATED AUTHOR AUTHOR'S ORGANIZ ATION 06/23/2020 [facility] DATE CREATED AUTHOR AUTHOR'S ORGANIZ ATION 10/22/2021 [facility] DATE CREATED AUTHOR AUTHOR'S ORGANIZ ATION 09/16/2023 [facility] DATE CREATED AUTHOR AUTHOR'S ORGANIZ ATION 07/04/2025 [facility] DATE CREATED AUTHOR AUTHOR'S ORGANIZ ATION 07/09/2025 [facility] Source Comments (unrecognize d section and content) In the event this informatio n is protected by the Federal Confidentiality of Alcohol and Drug Abuse Patient Records regulations: The Federal rules restrict any use of the information to criminally investigate or prosecute any alcohol or drug abuse patient.[facility] the event this information is protected by the Federal Confidentiality of Alcohol and Drug Abuse Patient Records regulations: The Federal rules restrict any use of the information to criminally investigate or prosecute any alcohol or drug abuse patient.[facility] Reason for Visit (unrecogniz ed section and content) Reason Comments Well Woman Reason Comments Orders Care Teams (unrecognized sec tion and content) Automatic Hemmer Relationship Specialty Start Date End Date Tommy Wallace MD PCP - General 12/17/06 Automatic Hemmer Relationship Specialty Start Date End Date Tommy Wallace MD PCP - General 12/17/06 FOR RECORDS PERTAINING TO PATIENTS WHO ARE OR HAVE BEEN ENROLLED IN A CHEMICAL DEPENDENCY/SUBSTANCEABUSE PROGRAM, SOME INFORMATION MAY BE OMITTED. This clinical summary was aggregated from multiple sources. Caution should be exercised in using it in the provision of clinical care. This summary normalizes information from multiple sources, and as a consequence, information in this document may materially change the coding, format and clinical context of patient data. In addition, data may be omitted in some cases. CLINICAL DECISIONS SHOULD BE BASED ON THE PRIMARY CLINICAL RECORDS. [facility]. provides no warranty or guarantee of the accuracy or completeness of information in this document.
== END | disposition home or self-care (01) ==
PROVIDERS: PCP Family Medicine; Referring Provider Nurse Practitioner; Visit Provider Nurse Practitioner
DX: N64.4 Mastodynia (principal)
CPT/HCPCS: 76642; 77062; 77066; G0279